=== PATIENT | female | born 1955 | race Caucasian/White ===

== ENCOUNTER 2019-12-13 15:27 | Outpatient (CLI) | payer MEDICARE, SELFPAY ==
--- NOTE | ~2019-12-13 | MM_ITS ---
EXAMINATION: MM screening [facility] BI w nelly HISTORY: Screening mammogram TECHNIQUE: Craniocaudal and mediolateral oblique 3-D tomosynthesis images were obtained and synthetic 2-D images were generated. CAD analysis was submitted and interpreted. COMPARISON: 08/17/2018, 06/10/2017, 02/17/2016 BREAST PARENCHYMAL COMPOSITION: The breasts are heterogeneously dense, which may obscure small masses . FINDINGS: There is no evidence of suspicious mass, calcification, or architectural distortion to sugg est malignancy in either breast. There has been no suspicious interval change. IMPRESSION: 1. No mammographic evidence of malignancy. 2. Recommend routine screening mammography in one year. BI-RADS Category 1: Negative Reviewed, dictated and finalized at location A. LE TESTER
== END 2019-12-13 15:28 | disposition home or self-care (01) ==
PROVIDERS: PCP Family Medicine; Visit Provider Family Medicine
DX: Z12.31 Encounter for screening mammogram for malignant neoplasm of breast (principal)
CPT/HCPCS: 77063; 77067

== ENCOUNTER 2020-01-28 21:22 | Observation (INO) | payer MEDICARE, SELFPAY ==
--- NOTE | ~2020-01-28 | XR_ITS ---
SMALL BOWEL SERIES ONLY INDICATION: Nausea and vomiting. Evaluate for obstruction. TECHNIQUE: Serial plain films and fluoroscopic spot films are performed following oral administration of water-soluble contrast. COMPARISON: None FINDINGS: Contrast was followed sequentially through the small bowel. The mucosal pattern is unremar kable. There is a small hiatal hernia. No evidence for stricture, polyp, diverticula or obstruction o f flow of contrast. Transit time is normal. IMPRESSION: 1: Normal small bowel series. 2: Small hiatal hernia. Reviewed, dictated and finalized at location A.
--- NOTE | ~2020-01-28 | CT_ITS ---
EXAMINATION: CT abdomen pelvis wo con DATE: 01/28/2020 22:56 INDICATION: Generalized abdominal pain. Nausea and vomiting. TECHNIQUE: Computed tomography (CT) of the abdomen and pelvis was performed without intravenous contr ast. Automated exposure control and iterative reconstruction technique were employed. The dose-length product was 401.63 mGy-cm. COMPARISON: None. FINDINGS: The visualized portions of the lung bases demonstrate minimal atelectasis. No pleural effus ion. The heart size is normal. There are coronary artery calcifications. No pericardial effusion. The re is a small sliding hiatal hernia. The liver, gallbladder, spleen, pancreas, adrenal glands, and ki dneys are normal. There is no urolithiasis. There is diverticulosis of the colon without evidence of diverticulitis. There are no dilated loops of bowel. The appendix is normal. There are no pathologica lly enlarged lymph nodes. There is no free intraperitoneal fluid. There is severe lower lumbar spondy losis and severe thoracic spondylosis. IMPRESSION: 1. Small sliding hiatal hernia. Reviewed, dictated and finalized at location A.
[2020-01-28 21:36] VITALS: BP 150/101; PULSE 104; RESP 18; TEMP 36.8; O2SAT 98
--- NOTE | 2020-01-28 21:41 | ED.NAVMDI ---
HPI - Nausea/Vomiting/Diarrhea General Chief complaint: Nausea/Vomiting/Diarrhea Stated complaint: nausea/vomiting Time Seen by Provider: 01/28/20 21:29 Source: patient Mode of arrival: ambulatory Limitations: no limitations History of Present Illness HPI Narrative: Pt is a 64 y/o female who presents to the ED with c/o N/V that started at 2AM this morning. Pt reports associated intermittent ABD cramps, but she denies fever or SOB. Pt states that her hands went numb while she was having a BM today. Pt takes Metformin for her DM and she started taking Jardiance and Trulicity on Tuesday (2 days ago). She notes that she has a H/O GERD and she has had an EGD in the past. MD elicited complaint: nausea and vomiting Onset (ago): hour(s) (20) Associated nausea: Yes Associated abdominal pain: Yes Location of pain: diffuse Pain consistency: intermittent Quality: cramping Related Data Home Medications Medication Instructions Recorded Confirmed blood sugar diagnostic #10 each 09/19/19 01/29/20 blood-glucose meter #1 each 09/19/19 01/29/20 lancets 33 gauge #100 each 09/19/19 01/29/20 pantoprazole 40 mg tablet,delayed 40 mg PO QAM 09/19/19 01/29/20 release paroxetine HCl 20 mg tablet 60 mg PO DAILY tablet 09/19/19 01/29/20 rosuvastatin 20 mg tablet 20 mg PO DAILY 09/19/19 01/29/20 Trulicity 0.75 mg SUBCUT WEEKLY 01/28/20 01/29/20 metformin 500 mg PO BID 01/28/20 01/29/20 Jardiance 25 mg PO DAILY 01/29/20 01/29/20 Allergies Allergy/AdvReac Type Severity Reaction Status Date / Time diclofenac AdvReac Other Verified 01/28/20 21:39 Review of Systems Review of Systems: All systems reviewed & are unremarkable except as noted in HPI and below Constitutional: Constitutional: Denies fever(s) Respiratory: Respiratory: Denies dyspnea Gastrointestinal: Gastrointestinal: Reports abdominal pain (ABD cramps), Reports nausea and Reports vomiting PMFSH Past Medical History Medical History (Updated 02/04/20 @ 06:38 by José Miguel Emanuel MD) Anxiety Bulging discs Depression Essential hypertension GERD (gastroesophageal reflux disease) Gastritis July 2019 HLD (hyperlipidemia) Lichen planus Seasonal allergies Subacute sinusitis Type 2 diabetes mellitus Surgical History Surgical History (Updated 01/29/20 @ 05:16 by Kandice Garcia DO) H/O section History of bunionectomy History of esophagogastroduodenoscopy (EGD) Performed by Dr. Munoz demonstrated gastritis July 2019 History of sinus surgery Family History Family History (Updated 01/29/20 @ 05:14 by Kandice Garcia DO) Mother Heart disease Hypercholesterolemia COPD (chronic obstructive pulmonary disease) Esophageal stricture Father Heart disease Grandparent Breast cancer Maternal grandmother Other Diabetes mellitus Social History Social History (Updated 01/29/20 @ 06:07 by Kandice Garcia DO) Social History: Primary care physician: Dr. Yelena Valdez Code status: Full code Smoking status: Never smoker Second hand tobacco smoke exposure: No Alcohol intake: never Substance use: never Substance use type: does not use Living arrangements: with family Additional living arrangements comments: She lives with her of 44 years. She has 2 children. Her daughter has what sounds like Augustina-Danlos syndrome. 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 Gender identity (if verbalized by the patient): Female Spiritual care concerns: No Agree to blood products: Yes Exam Const: General: no acute distress, well developed and ill appearing (mildly) Nutritional Appearance: well nourished Orientation/consciousness: patient oriented x3 (alert) and Other orientation findings (Alert) Limitations: no limitations HEN
[2020-01-28 22:16] LABS: Basophils Percent Auto 0.2 % (0.2-1.2); Eosinophils Percent Auto 0.1 % (0-4.4); Hematocrit 51.7 % (37.0-47.0); Hemoglobin 17.1 g/dL (12.0-15.0); Immature Granulocyte Absolute 0.04 K/mm3 (0.00-0.031); Immature Granulocyte Percent A 0.2 % (0-0.5); Lymphocytes Absolute Auto 1.34 K/mm3 (0.9-3.2); Lymphocytes Percent Auto 7.8 % (18.3-44.2); Mean Corpuscular HGB Conc 33.1 g/dl (32-36); Mean Corpuscular Hemoglobin 27.3 pg (26-34); Mean Corpuscular Volume 82.6 fl (80-100); Mean Platelet Volume 11.4 fl (7.4-10.4); Monocytes Absolute Auto 0.9 K/mm3 (0.1-0.6); Monocytes Percent Auto 5.2 % (2.6-8.5); Neutrophils Absolute Auto 14.9 K/mm3 (1.3-6.7); Neutrophils Percent Auto 86.5 % (45.5-73.1); Platelet Count Result 349 k/mm3 (150-375); Red Blood Count 6.26 M/mm3 (4.2-5.4); Red Cell Distribution Width 15.2 % (11.5-14.5); White Blood Count 17.2 K/mm3 (4.5-10.0)
[2020-01-28 22:25] LABS: Alanine Aminotransferase 19 U/L (4-35); Albumin Level 5.4 g/dL (3.5-5.1); Alkaline Phosphatase 93 U/L (38-126); Aspartate Amino Transferase 31 U/L (14-36); Bilirubin,Total 0.7 mg/dL (0.2-1.3); Blood Urea Nitrogen 25 mg/dL (7-17); Calcium 10.9 mg/dL (8.4-10.2); Carbon Dioxide 18 mmol/L (22-30); Chloride 99 mmol/L (98-107); Estimated CRCL calculation 46 ml/min; Estimated Glomerular Filt Rate 56; Glucose 226 mg/dL (65-105); Lipase 159 U/L (23-300); Potassium 4.2 mmol/L (3.4-5.0); Sodium 138 mmol/L (137-145)
[2020-01-28 22:29] LABS: Beta-Hydroxybutyrate/Acetoacetate 3.35 mmol/L (0.02-0.27)
[2020-01-28] MEDS: LACTATED RINGERS 1,000 ML 999 ML IV CONT ×2 (22:31→23:09)
[2020-01-28] MEDS: PROCHLORPERAZINE EDISYLATE 10 MG/2 ML VIAL IV PUSH (22:32)
[2020-01-28 22:59] LABS: Add Urine Microscopic? YES; Appearance Urine Clear (Clear); Bilirubin Urine Negative (Negative); Blood Urine Negative (Negative); Color Urine Yellow (Yellow); Glucose Urine UA 3+ mg/dL (Negative); Ketones Urine 2+ mg/dL (Negative); Leukocyte Esterase Ur Negative LEU/UL (Negative); Mucus Urine Rare /lpf; Nitrate Urine Negative (Negative); Protein Urine 1+ mg/dL (Negative); RBC Urine 0-2 /hpf (0-2); Squamous Epithelial Cell Urine Rare /hpf (Few); Urobilinogen Urine Negative mg/dL (<2.0)
[2020-01-28 23:05] LABS: Specific Grav Ur 1.035 (1.001-1.035)
[2020-01-28] MEDS: FAMOTIDINE 20 MG/2 ML VIAL 40 MG IV PUSH (23:08)
[2020-01-28 23:12] VITALS: BP 149/91; PULSE 95; RESP 18; O2SAT 99
--- NOTE | 2020-01-28 23:20 | ECG_ITS ---
Measurements Intervals [place] Rate: 80 P: 47 [place]: 161 QRS: 14 QRSD: 84 T: 32 QT: 379 QTc: 438 Interpretive Statements SINUS RHYTHM LOW QRS VOLTAGE IN PRECORDIAL LEADS BORDERLINE ST-T WAVE ABNORMALITY- INF/LAT LEADS BORDERLINE ECG Electronically Signed On 01-29-2020 7:17:39 CDT by Zen Donis D.O.
[2020-01-28 23:31] LABS: Lactic Acid Reflex 2.8 mmol/L (0.7-2.1)
--- NOTE | 2020-01-28 23:54 | PC.NURSE ---
this rn attempted to put NG in right nare, met resistance at 45. this RN pulled tube out and was going to attempt in left nare pt refused. notified.
[2020-01-29 00:04] VITALS: BP 135/85; PULSE 92; RESP 16; O2SAT 99
[2020-01-29 00:39] VITALS: BP 138/89; PULSE 85; RESP 18; O2SAT 100
[2020-01-29 00:45] VITALS: BP 139/68; PULSE 87; RESP 18; TEMP 36.7; O2SAT 94; BMI 26.7
[2020-01-29] MEDS: ONDANSETRON INJ 4 MG/2 ML VIAL IV PUSH (00:55)
[2020-01-29] MEDS: LACTATED RINGERS 1,000 ML 125 ML IV CONT ×2 (00:57→09:33)
[2020-01-29 00:58] VITALS: BMI 26.7
--- NOTE | 2020-01-29 01:04 | ADMGEN ---
This patient, My Galan, was admitted to [facility] Room 314-01. Patient/family oriented to hospital policies and general routines including ID bracelet, bed and alarms, visiting hours, pain management, procedures, bathroom and other care routines, personal items, smoking policy, room service/diet, and visiting hours. Valuables list has been completed. Information on how to activate the Rapid Response Team has been discussed. Patient/Family are encouraged to report perceived risks to care and to ask questions if they do not understand what they are told or what they should do.
[2020-01-29 02:16] LABS: Reflex Lactic Acid Yes or No Add Lactic
[2020-01-29 02:51] LABS: Lactic Acid 2.3 mmol/L (0.7-2.1)
--- NOTE | 2020-01-29 05:05 | PM.IMHP ---
H&P: HPI History of Present Illness Chief complaint: intractable vomiting Narrative: Date and time of patient contact: 01/29/2020 at 5:20 a.m. My Galan is a 64 year old female with a past medical history of type 2 diabetes mellitus, hypertension and GERD who presented to the ER with intractable nausea and vomiting. The patient reported that she started Trulicity by her teacher asst and metformin on Tuesday morning. Then on the major general hour of Tuesday morning she began having nausea vomiting and dry heaves. She reports that she was unable to even keep down a tsp of fluid at a time. She had not had more than a couple of tsp of fluid all day on Tuesday before presenting to the ER. She reports epigastric pain and esophageal discomfort occurred right at the time she was going to vomit in following the episode. She denies any hematochezia, hematemesis or coffee-ground emesis. She had not been having any fevers or chills. Her had been eating the same food as her prior to onset of symptoms and he did not was not ill. She denies any fevers or chills. She did not have any accompanying diarrhea. In fact, her last bowel movement was shortly before coming to the ER and was dark and somewhat hard. When she pushed to have her bowel movement in made her epigastric pain worse. She does have a history of gastritis and had an EGD in July of 2019. She had tried to stop her Protonix a couple of times since July, as there is a possibility it could have been making her lichen planus worse, but each time she stopped her Protonix her epigastric pain would recur and she would have a headache. Her symptoms over the last 2 days for nothing like her gastritis symptoms. She had had decreased urine output and darker urine. She denies any dysuria or hematuria. Her teacher asst is Dr. Li Lee. Review of Systems Review of Systems: Narrative: 12 systems were reviewed with pertinent positives and negatives per HPI. Except as documented in the HPI, all other systems were reviewed and are negative. [facility] Past Medical History Medical History (Updated 01/29/20 @ 05:20 by Kandice Garcia DO) Anxiety Bulging discs Depression Essential hypertension GERD (gastroesophageal reflux disease) Gastritis July 2019 HLD (hyperlipidemia) Lichen planus Seasonal allergies Subacute sinusitis Type 2 diabetes mellitus Surgical History Surgical History (Updated 01/29/20 @ 05:16 by Kandice Garcia DO) H/O section History of bunionectomy History of esophagogastroduodenoscopy (EGD) Performed by Dr. Munoz demonstrated gastritis July 2019 History of sinus surgery Family History Family History (Updated 01/29/20 @ 05:14 by Kandice Garcia DO) Mother Heart disease Hypercholesterolemia COPD (chronic obstructive pulmonary disease) Esophageal stricture Father Heart disease Grandparent Breast cancer Maternal grandmother Other Diabetes mellitus Social History Social History (Updated 01/29/20 @ 06:07 by Kandice Garcia DO) Social History: Primary care physician: Dr. Yelena Valdez Code status: Full code Smoking status: Never smoker Second hand tobacco smoke exposure: No Alcohol intake: never Substance use: never Substance use type: does not use Living arrangements: with family Additional living arrangements comments: She lives with her of 44 years. She has 2 children. Her daughter has what sounds like Augustina-Danlos syndrome. 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 Gender identity (if verbalized by the patient): Female Spiritual care concerns: No Agree to blood products: Yes Meds Home Medications and Allergies Home Medications Medication Instructio
[2020-01-29 06:00] VITALS: BP 120/60; PULSE 85; RESP 18; TEMP 36.4; O2SAT 95
[2020-01-29 06:13] LABS: Basophils Absolute Auto 0.1 K/mm3 (0.0-0.1); Basophils Percent Auto 0.4 % (0.2-1.2); Eosinophils Percent Auto 0.1 % (0-4.4); Hematocrit 44.7 % (37.0-47.0); Hemoglobin 14.6 g/dL (12.0-15.0); Immature Granulocyte Absolute 0.05 K/mm3 (0.00-0.031); Immature Granulocyte Percent A 0.4 % (0-0.5); Lymphocytes Absolute Auto 3.32 K/mm3 (0.9-3.2); Lymphocytes Percent Auto 23.3 % (18.3-44.2); Mean Corpuscular HGB Conc 32.7 g/dl (32-36); Mean Corpuscular Hemoglobin 27.5 pg (26-34); Mean Corpuscular Volume 84.2 fl (80-100); Monocytes Absolute Auto 1.4 K/mm3 (0.1-0.6); Monocytes Percent Auto 9.5 % (2.6-8.5); Neutrophils Absolute Auto 9.4 K/mm3 (1.3-6.7); Neutrophils Percent Auto 66.3 % (45.5-73.1); Platelet Count Result 291 k/mm3 (150-375); Red Blood Count 5.31 M/mm3 (4.2-5.4); White Blood Count 14.2 K/mm3 (4.5-10.0)
[2020-01-29 06:25] LABS: Lactic Acid Reflex 1.7 mmol/L (0.7-2.1)
[2020-01-29 06:26] LABS: Blood Urea Nitrogen 25 mg/dL (7-17); Calcium 9.7 mg/dL (8.4-10.2); Carbon Dioxide 26 mmol/L (22-30); Chloride 103 mmol/L (98-107); Estimated CRCL calculation 57 ml/min; Estimated Glomerular Filt Rate > 60; Glucose 128 mg/dL (65-105); Potassium 4.3 mmol/L (3.4-5.0); Sodium 136 mmol/L (137-145)
[2020-01-29] MEDS: ASPIRIN 81 MG CHEWABLE TABLET PO (09:40)
[2020-01-29] MEDS: PANTOPRAZOLE SODIUM IV 40 MG VIAL IV PUSH (09:41)
[2020-01-29 10:28] LABS: Glucose Point of Care 142 (65-105)
--- NOTE | 2020-01-29 10:57 | PM.IMPN ---
Progress Note: A&P Assessment and Plan (1) Intractable vomiting with nausea: Code(s): R11.2 - Nausea with vomiting, unspecified Status: Acute Assessment and Plan: Suspect that this may be an adverse reaction to trulicity. She denies any further episodes of vomiting. She tolerated CLD this AM with only mild nausea. Discussed with Dr. Munoz and will perform small bowel series to r/o obstruction Will advance to full liquid diet after small bowel series Continue PRN antiemetics Continue protonix IV BID Will hold trulicity at discharge (2) Lactic acidosis: Code(s): E87.2 - Acidosis Status: Resolved Assessment and Plan: Lactic at presentation to ED was 2.8. This was likely due to dehydration/hypovolemia. Lactic acidosis has resolved as lactic acid today is WNL at 1.7. (3) Hyperglycemia due to type 2 diabetes mellitus: Qualifiers: Diabetes mellitus laborer marine terminal insulin use: without laborer marine terminal use Qualified Code(s): E11.65 - Type 2 diabetes mellitus with hyperglycemia Code(s): E11.65 - Type 2 diabetes mellitus with hyperglycemia Status: Acute Assessment and Plan: Per pt, most recent HbA1C was 10. She was referred to endocrinology and saw Dr. Li Lee 01/24/19. She was prescribed metformin and trulicity. She had intractable vomiting 4 hr after taking trulicity at 2pm 01/25. She was on metformin 4 years ago and believes she may have experienced GI upset/diarrhea at that time. Blood sugars reviewed and stable. Hold prior to admission hypoglycemic agents Continue SSI, ACHS, and hypoglycemia protocol (4) Hypovolemia dehydration: Code(s): E86.1 - Hypovolemia Status: Acute Assessment and Plan: Pt had 2 1L fluid boluses in the ED. She is on maintenance IV fluids at this time. Continue IV fluid hydration, reassess as pt advances diet (5) GERD (gastroesophageal reflux disease): Code(s): K21.9 - Gastro-esophageal reflux disease without esophagitis Status: Acute Assessment and Plan: Pt underwent EGD [address] Munoz which revealed gastritis. Protonix IV while inpatient. Resume protonix 40mg PO QD at discharge. (6) Essential hypertension: Code(s): I10 - Essential (primary) hypertension Status: Acute Assessment and Plan: BP reviewed and stable. Continue telmisartan (7) HLD (hyperlipidemia): Code(s): E78.5 - Hyperlipidemia, unspecified Status: Acute Assessment and Plan: LFTs reviewed and WNL. Continue rosuvastatin (8) Anxiety: Code(s): F41.9 - Anxiety disorder, unspecified Status: Acute Assessment and Plan: Mood stable. Continue paroxetine (9) DVT prophylaxis: Code(s): Z29.9 - Encounter for prophylactic measures, unspecified Status: Acute Assessment and Plan: Lovenox 40mg SQ QD Subjective Date/time seen: 01/29/20 10:57 Interval history: Mrs. Galan is seen and examined at bedside. She reports that her appetite has improved and she was able to tolerate chicken broth, jello, and ensure today. She endorses mild postprandial nausea but denies vomiting after eating. She denies abdominal pain, melena, hematochezia, and hematemesis. She denies chest pain, cough, and SOB. She denies fever and chills. Review of Systems Review of Systems: All systems reviewed & are unremarkable except as noted in HPI and below Exam Narrative: Exam Narrative: General: Pleasant 64 y.o. female who is lying in bed resting. She is well-developed and in no acute distress. HEENT: Normocephalic and atraumatic. Conjunctivae and lids normal. PERRL. EOMI. Mucous membranes moist. Posterior pharynx without erythema or exudate. Neck: Supple. No lymphadenopathy or masses. Cardiac: Regular rate and rhythm. S1 and S2 normal. Lungs: Normal respiratory effort. Lungs to auscultation bilaterally without rales, rhonchi, or wheezing. Abdomen:
[2020-01-29] MEDS: ENOXAPARIN 40 MG/0.4 ML SYRINGE SUB-Q (11:50)
[2020-01-29] MEDS: PAROXETINE 20 MG TABLET 60 MG PO (14:19)
[2020-01-29] MEDS: ROSUVASTATIN 10 MG TABLET 20 MG PO (14:19)
[2020-01-29 14:29] VITALS: BP 138/68; PULSE 84; RESP 18; TEMP 37.3; O2SAT 96
[2020-01-29 14:33] LABS: Glucose Point of Care 117 (65-105)
[2020-01-29] MEDS: TELMISARTAN 20 MG TABLET PO (16:10)
[2020-01-29 17:46] LABS: Glucose Point of Care 129 (65-105)
[2020-01-29] MEDS: PANTOPRAZOLE 40 MG TABLET PO (20:16)
[2020-01-29 21:55] LABS: Glucose Point of Care 110 (65-105)
[2020-01-29 22:00] VITALS: BP 136/68; PULSE 83; RESP 18; TEMP 36.6; O2SAT 99
[2020-01-30 06:00] VITALS: BP 121/67; PULSE 86; RESP 16; TEMP 37; O2SAT 96
[2020-01-30 06:21] LABS: Hematocrit 40.8 % (37.0-47.0); Mean Corpuscular HGB Conc 31.9 g/dl (32-36); Mean Corpuscular Hemoglobin 27.4 pg (26-34); Mean Corpuscular Volume 85.9 fl (80-100); Mean Platelet Volume 11.5 fl (7.4-10.4); Platelet Count Result 222 k/mm3 (150-375); Red Blood Count 4.75 M/mm3 (4.2-5.4); Red Cell Distribution Width 14.6 % (11.5-14.5)
[2020-01-30 06:34] LABS: Blood Urea Nitrogen 18 mg/dL (7-17); Calcium 9.1 mg/dL (8.4-10.2); Carbon Dioxide 29 mmol/L (22-30); Chloride 104 mmol/L (98-107); Estimated CRCL calculation 57 ml/min; Estimated Glomerular Filt Rate > 60; Glucose 119 mg/dL (65-105); Magnesium 1.9 mg/dL (1.6-2.3); Sodium 137 mmol/L (137-145)
[2020-01-30 07:46] LABS: Glucose Point of Care 118 (65-105)
[2020-01-30] MEDS: TELMISARTAN 20 MG TABLET PO (08:21)
[2020-01-30] MEDS: ASPIRIN 81 MG CHEWABLE TABLET PO (08:21)
[2020-01-30] MEDS: ROSUVASTATIN 10 MG TABLET 20 MG PO (08:21)
[2020-01-30] MEDS: PANTOPRAZOLE 40 MG TABLET PO (08:21)
[2020-01-30] MEDS: PAROXETINE 20 MG TABLET 60 MG PO (08:22)
[2020-01-30] MEDS: ENOXAPARIN 40 MG/0.4 ML SYRINGE SUB-Q (08:22)
--- NOTE | 2020-01-30 09:11 | PM.DS ---
DS: Diagnosis Admitting Diagnosis Admitting Diagnosis: Nausea with vomiting, unspecified Discharge Diagnosis (1) Intractable vomiting with nausea: Code(s): R11.2 - Nausea with vomiting, unspecified Status: Resolved (2) Lactic acidosis: Code(s): E87.2 - Acidosis Status: Resolved Assessment and Plan: (3) Type 2 diabetes mellitus: Code(s): E11.9 - Type 2 diabetes mellitus without complications Status: Chronic (4) Hypovolemia dehydration: Code(s): E86.1 - Hypovolemia Status: Resolved (5) GERD (gastroesophageal reflux disease): Code(s): K21.9 - Gastro-esophageal reflux disease without esophagitis Status: Chronic (6) Essential hypertension: Code(s): I10 - Essential (primary) hypertension Status: Chronic (7) HLD (hyperlipidemia): Code(s): E78.5 - Hyperlipidemia, unspecified Status: Chronic (8) Anxiety: Code(s): F41.9 - Anxiety disorder, unspecified Status: Chronic (9) DVT prophylaxis: Code(s): Z29.9 - Encounter for prophylactic measures, unspecified Status: Acute DS: Summary Hospital Course Hospital Course: Mrs. Galan is a 64 y.o. female with PMH significant for T2DM, hypertension, GERD, anxiety and depression, and HLD who presented to the ED with c/o intractable nausea and vomiting 01/26 after starting trulicity and metformin 01/25. She had recurrent vomiting and retching throughout the day Tuesday and Tuesday. She was unable to keep fluids or food down and presented to the ED. Initial workup in the ED revealed WBC 17.2, Hb 17.1, Hct 51.7, MCV 82.6, platelets 349, sodium 138, potassium 4.4, chloride 100, CO2 21, BUN 23, Cr 0.7, lactic acid 2.8, lipase 159. CT abd/pelvis revealed fluid distention in the stomach and small sliding hiatal hernia. She was admitted for observation. NG tube placement was attempted but the first attempt was unsuccessful and the pt refused additional attempts. Small bowel series revealed no evidence of obstruction. Her sx were felt to be due to an adverse reaction from her trulicity and/or metformin. She had evidence of dehydration clinically and on labs so she was rehydrated with IV fluids. Her lactic acidosis was felt to be due to dehydration and normalized with fluids. She advanced her diet slowly and was tolerating consistent carb diet on the day of discharge without nausea, vomiting, or abdominal pain. I called to discuss her case with Dr. Lee, her cash surrender calculator. Her blood sugars were reviewed and reasonably controlled during her stay on SSI. Due to her severe vomiting and lactic acidosis at admission, I have recommended she hold trulicity and metformin at discharge until she is able to follow-up with Dr. Lee outpatient for her diabetes management. Dr. Lee has ordered labs which I instructed her to have completed. She will continue jardiance. She admits that she has started making significant dietary changes in the past month. I asked her to keep a blood sugar log and call her PCP and cash surrender calculator immediately if her blood sugar readings were persistently elevated >180 on this regimen. She verbalized understanding with the current plan of care. She was able to meet with our personal development educator and I also spent extensive time discussing the importance of exercise and dietary changes to help with glycemic control as well. Additional discharge instructions are listed below. She was hemodynamically stable at the time of discharge. She was tolerating PO intake well. Status at Discharge Functional status at discharge: independent ambulation Overall status at discharge: patient is back to baseline Time Spent with Patient Time attestation: Total time spent providing and/or coordinating discharge services: 30 minutes Exam Narrative: Exam Narrative: General: Pleasant, well-developed 64 y.o. female who is sitting in the chair next to the window looking outside. She is in no acute distress. HEENT: Nor
[2020-01-30 11:30] VITALS: BMI 26.7
[2020-01-30 12:30] LABS: Glucose Point of Care 140 (65-105)
== END 2020-01-30 13:30 | disposition home or self-care (01) ==
LOC: ANHED 23:46 → ANH3MEDSUR 01-29 00:08
PROVIDERS: Emergency Medicine; Physician Assistant; Admitting Provider Internal Medicine; Emergency Provider Emergency Medicine; PCP Family Medicine; Visit Provider Family Medicine
DX: R11.2 Nausea with vomiting, unspecified (principal); E87.2 Acidosis; E86.1 Hypovolemia; E86.0 Dehydration; E11.65 Type 2 diabetes mellitus with hyperglycemia; K21.9 Gastro-esophageal reflux disease without esophagitis; K44.9 Diaphragmatic hernia without obstruction or gangrene; I10 Essential (primary) hypertension; E78.5 Hyperlipidemia, unspecified; F41.9 Anxiety disorder, unspecified; F32.9 Major depressive disorder, single episode, unspecified; Z79.84 Long term (current) use of oral hypoglycemic drugs; Z79.899 Other long term (current) drug therapy
CPT/HCPCS: 36415; 74176; 74250; 80048; 80053; 81001; 82010; 83605; 83690; 83735; 84100; 85025; 85027; 93005; 96361; 96372; 96374; 96375; 99285; A9270; C9113; G0378; J0780; J1650; J2405; J7120

== ENCOUNTER 2020-09-19 10:59 | Emergency (ER) | payer MEDICARE, SELFPAY ==
--- NOTE | ~2020-09-19 | XR_ITS ---
EXAMINATION: XR chest 1V portable DATE: 09/19/2020 11:45 INDICATION: Shortness of breath. TECHNIQUE: A single frontal view of the chest was obtained. COMPARISON: Chest 2 views 06/26/2019, CT abdomen and pelvis 01/28/2020 FINDINGS: The chest demonstrates clear lungs without pneumonia, pleural effusion, or pneumothorax. Th e heart size is normal. IMPRESSION: 1. No acute cardiopulmonary disease. Reviewed, dictated and finalized at location A. LERATOR SYSTEMS DIRECTOR
--- NOTE | 2020-09-19 11:08 | ED.GENADULT ---
HPI - General Adult General Chief complaint: Dizziness <Fay Scott PA-C - Last Filed: 09/19/20 14:35> Stated complaint: Dizzy-hx [place] 09/13 <Fay Scott PA-C - Last Filed: 09/19/20 14:35> Time Seen by Provider: 09/19/20 11:05 <Fay Scott PA-C - Last Filed: 09/19/20 14:35> Source: patient and family () <Fay Scott PA-C - Last Filed: 09/19/20 14:35> Mode of arrival: ambulatory <VENTURA Arvizu Last Filed: 09/19/20 14:35> Limitations: no limitations <VENTURA Arvizu Last Filed: 09/19/20 14:35> History of Present Illness HPI narrative: Patient is here for evaluation of dizziness. On 09/13 patient had a STEMI while camping in [facility]. She was treated at [facility], cardiac cath was done and a stent was placed. She was instructed to follow-up with cardiology here in 2 to 4 weeks. She was also started on a beta-cecilia twice daily. She states that her symptoms started yesterday and she felt like she was spinning, it was worse when she was standing but did not resolve completely when she lie down flat. She called the forging operator that treated her and was recommended to hold her beta-cecilia today so her last dose was last evening. She does state that she feels a little better today, is not dizzy while sitting. She also complained of mild shortness of breath that has been ongoing since she was discharged from the hospital. She states that she had a negative Covid screen in [place]. <Fay Scott PA-C - Last Filed: 09/19/20 14:35> Onset (ago): day(s) <Fay Scott PA-C - Last Filed: 09/19/20 14:35> Severity: mild <VENTURA Arvizu Last Filed: 09/19/20 14:35> Pain Consistency: intermittent <VENTURA Arvizu Last Filed: 09/19/20 14:35> Treatments prior to arrival: other (holding b-cecilia) <Fay Scott PA-C - Last Filed: 09/19/20 14:35> Related Data Home medications: Home Medications Medication Instructions Recorded Confirmed paroxetine HCl 20 mg tablet 60 mg PO DAILY tablet 09/19/19 02/13/20 rosuvastatin 20 mg tablet 20 mg PO DAILY 09/19/19 02/13/20 metformin 500 mg PO BID 01/28/20 02/13/20 Jardiance 25 mg PO DAILY 01/29/20 02/13/20 cholecalciferol (vitamin D3) 50 50 mcg PO DAILY 06/03/20 mcg (2,000 unit) capsule coenzyme Q10 100 mg capsule 100 mg PO DAILY 06/03/20 evening primrose oil 500 mg capsule 500 mg PO DAILY cap 06/03/20 fenofibrate 160 mg tablet 160 mg PO DAILY 06/03/20 glimepiride 1 mg tablet 1 mg PO QAM 06/03/20 ujenubehpdzo-Pw-egwc-minerals tablet PO 06/03/20 omega-3 fatty acids 1,000 mg 1,000 mg PO BID 06/03/20 capsule <Fay Scott PA-C - Last Filed: 09/19/20 14:35> Allergies/adverse reactions: Allergies Allergy/AdvReac Type Severity Reaction Status Date / Time dulaglutide [From [facility]] AdvReac Severe Nausea and Verified 06/03/20 09:39 Vomiting diclofenac AdvReac Other Verified 06/03/20 09:39 <Fay Scott PA-C - Last Filed: 09/19/20 14:35> Review of Systems Review of Systems: All systems reviewed & are unremarkable except as noted in HPI and below <Fay Scott PA-C - Last Filed: 09/19/20 14:35> [facility] Past Medical History Medical History: Medical History (Updated 09/19/20 @ 14:35 by Fay Scott PA-C) Anxiety Bulging discs Depression Essential hypertension Excessive daytime sleepiness Frequent headaches GERD (gastroesophageal reflux disease) Gastritis July 2019 HLD (hyperlipidemia) Lichen planus NSTEMI (non-ST elevated myocardial infarction) Seasonal allergies Subacute sinusitis Type 2 diabetes mellitus <Fay Scott PA-C - Last Filed: 09/19/20 14:35> Surgical History Surgical History: Surgical History H/O section History of bunionectomy History of esophagogastroduodenoscopy (EGD) Performed by
[2020-09-19 11:10] VITALS: BP 138/83; PULSE 59; RESP 14; O2SAT 97
[2020-09-19 11:27] VITALS: BP 129/67; PULSE 60
[2020-09-19 11:28] VITALS: BP 126/77; PULSE 60
[2020-09-19 11:30] VITALS: BP 125/81; PULSE 61
[2020-09-19 11:31] LABS: Basophils Percent Auto 0.6 % (0.2-1.2); Eosinophils Absolute Auto 0.3 K/mm3 (0-0.3); Eosinophils Percent Auto 4.2 % (0-4.4); Hematocrit 46.5 % (37.0-47.0); Hemoglobin 15.4 g/dL (12.0-15.0); Immature Granulocyte Absolute 0.01 K/mm3 (0.00-0.031); Immature Granulocyte Percent A 0.2 % (0-0.5); Lymphocytes Percent Auto 28.2 % (18.3-44.2); Mean Corpuscular HGB Conc 33.1 g/dl (32-36); Mean Corpuscular Hemoglobin 28.3 pg (26-34); Mean Corpuscular Volume 85.3 fl (80-100); Mean Platelet Volume 10.9 fl (7.4-10.4); Monocytes Absolute Auto 0.5 K/mm3 (0.1-0.6); Neutrophils Absolute Auto 3.8 K/mm3 (1.3-6.7); Neutrophils Percent Auto 58.8 % (45.5-73.1); Platelet Count Result 333 k/mm3 (150-375); Red Blood Count 5.45 M/mm3 (4.2-5.4); White Blood Count 6.4 K/mm3 (4.5-10.0)
[2020-09-19 11:43] LABS: Alanine Aminotransferase 27 U/L (4-35); Alkaline Phosphatase 49 U/L (38-126); Anion Gap 12 mmol/L (8-16); Aspartate Amino Transferase 35 U/L (14-36); Bilirubin,Total 0.5 mg/dL (0.2-1.3); Blood Urea Nitrogen 26 mg/dL (7-17); Calcium 10.5 mg/dL (8.4-10.2); Carbon Dioxide 27 mmol/L (22-30); Chloride 100 mmol/L (98-107); Estimated CRCL calculation 43 ml/min; Estimated Glomerular Filt Rate 50; Glucose 162 mg/dL (65-105); Potassium 4.6 mmol/L (3.4-5.0); Sodium 139 mmol/L (137-145)
[2020-09-19 12:16] VITALS: BP 136/75; PULSE 60; RESP 19; O2SAT 94
[2020-09-19] MEDS: SODIUM CHLORIDE 0.9% IV 1,000 ML 999 ML IV CONT (12:56)
[2020-09-19 14:33] VITALS: BP 154/99; PULSE 59; RESP 19; O2SAT 99
--- NOTE | 2020-09-19 15:38 | ECG_ITS ---
Measurements Intervals [place] Rate: 59 P: -2 [place]: 173 QRS: 5 QRSD: 87 T: 60 QT: 419 QTc: 416 Interpretive Statements SINUS BRADYCARDIA LOW QRS VOLTAGE IN PRECORDIAL LEADS BORDERLINE ECG Electronically Signed On 09-19-2020 16:38:15 CASE REVIEWER by Zen Donis D.O.
== END 2020-09-19 14:54 | disposition home or self-care (01) ==
PROVIDERS: Physician Assistant; Emergency Provider Emergency Medicine; PCP Family Medicine
DX: R42 Dizziness and giddiness (principal); R00.1 Bradycardia, unspecified; I25.2 Old myocardial infarction; Z79.84 Long term (current) use of oral hypoglycemic drugs; I10 Essential (primary) hypertension; K21.9 Gastro-esophageal reflux disease without esophagitis; E78.5 Hyperlipidemia, unspecified; L43.9 Lichen planus, unspecified; E11.9 Type 2 diabetes mellitus without complications; Z87.891 Personal history of nicotine dependence
CPT/HCPCS: 36415; 71045; 80053; 85025; 93005; 96360; 96361; 99283; J7030

== ENCOUNTER → 2020-10-24 10:16 | Outpatient (CLI) | payer MEDICARE, SELFPAY ==
--- NOTE | ~2020-10-24 | DEXA_ITS ---
Bone Density Report Name: My Galan Age: 65 Sex: Female Ethnicity: White Date of : 1955 Indication: postmenopausal; screening for osteoporosis; height loss; Referring Provider: ANURADHA FRENCH Study: Bone densitometry was performed. Exam Date: October 24, 2020 Accession number: [id number] Bone Density: Region BMD T-score Z-score Classification AP Spine (L1-L4) 1.076 0.3 2.1 Normal Femoral Neck (Left) 0.799 -0.4 1.1 Normal Total Hip (Left) 0.994 0.4 1.7 Normal Femoral Neck (Right) 0.751 -0.9 0.7 Normal Total Hip (Right) 0.956 0.1 1.4 Normal Total Hip Mean 0.975 0.3 1.6 Normal World Health Organization criteria for BMD impression classify patients as: Normal (T-score at or above -1.0), Osteopenia (T-score between -1.0 and -2.5), or Osteoporosis (T-score at or below -2.5). 10-year Fracture Risk: FRAX not reported because: All T-scores for Spine Total, Hip Total, Femoral Neck at or above -1.0 Clinical Information Provided by Patient: Has used the following medications: Vitamin D, MTV Patient maximum height was 64 Menopause Age: 57 No regular weight bearing exercise Onset of menses at age 12 Number of children 2 Impression: The patient has normal bone mass. Discussion: BONE DENSITY IS ABOVE THE MINIMUM DESIRABLE LEVEL AT ALL SKELETAL SITES TESTED. This patient?s bone mineral density is above the minimum desirable level (T-score -1.0 or better) at all sites measured. The patient should follow a healthful lifestyle (good nutrition with adequate calcium and vitamin D, and appropriate weight-bearing exercise). Follow-Up: Consider repeating this study in 5 years or sooner if there is some new clinical indication. Reported by: [facility] on 10/24/2020 10:52:00 AM. Reviewed, dictated and finalized at location ALisa CARRASQUILLO
== END ==
DX: M81.0 Age-related osteoporosis without current pathological fracture (principal)
CPT/HCPCS: 77080

== ENCOUNTER 2021-01-14 09:00 | Outpatient (RCR) | payer MEDICARE, SELFPAY ==
[2020-10-16 12:47] VITALS: BP 128/78; PULSE 70; RESP 16; TEMP 36.3; O2SAT 97
[2020-10-16 12:48] VITALS: PULSE 70
[2020-10-22 15:11] LABS: Glucose Point of Care 171 (65-105)
--- NOTE | 2020-12-04 18:08 | PCCPR ---
Discouraged from exercising today c/o not feeling well My here her left eye was swollen mostly lower eye lid. State is fatigued and allergies are going wild as she attempts to clean out her basement filled with dust. Explained if not feeling well it would not be a good day to exercise she should take the day and rest and if feeling better return on Tuesday.
[2020-12-15 17:56] LABS: Glucose Point of Care 154 (65-105)
--- NOTE | 2020-12-17 16:53 | PCCPR ---
My absent today, caring for and grandchildren.
--- NOTE | 2020-12-22 13:19 | PCCPR ---
Absent due to inclement weather Spoke with My if she did not want to come out in the very cold and snowy weather
[2020-12-25 16:02] LABS: Glucose Point of Care 132 (65-105)
[2020-12-25 16:02] LABS: Glucose Point of Care 110 (65-105)
[2021-01-07 10:19] LABS: Glucose Point of Care 159 (65-105)
[2021-01-07 10:19] LABS: Glucose Point of Care 115 (65-105)
[2021-01-08 10:03] LABS: Glucose Point of Care 177 (65-105)
[2021-01-08 10:03] LABS: Glucose Point of Care 126 (65-105)
[2021-01-14 10:12] LABS: Glucose Point of Care 116 (65-105)
== END 2021-01-14 23:59 | disposition home or self-care (01) ==
LOC: ANHCPREHAB 09:00
PROVIDERS: PCP Family Medicine
DX: Z95.5 Presence of coronary angioplasty implant and graft (principal)
CPT/HCPCS: 82948; 93798

== ENCOUNTER 2021-02-02 09:00 | Outpatient (RCR) | payer MEDICARE, SELFPAY ==
[2021-01-15 00:03] VITALS: BP 128/78; PULSE 70; RESP 16; TEMP 36.3; O2SAT 97
[2021-01-27 07:09] LABS: Glucose Point of Care 194 (65-105)
== END 2021-02-02 11:30 | disposition home or self-care (01) ==
LOC: ANHCPREHAB 09:00
PROVIDERS: PCP Family Medicine
DX: Z95.5 Presence of coronary angioplasty implant and graft (principal)
CPT/HCPCS: 82948; 93798

== ENCOUNTER 2021-04-18 14:21 | Emergency (ER) | payer MEDICARE, SELFPAY ==
--- NOTE | ~2021-04-18 | CT_ITS ---
EXAMINATION: CT abdomen pelvis w con DATE: 04/18/2021 17:15 INDICATION: Epigastric pain, nausea and vomiting TECHNIQUE: Computed tomography (CT) of the abdomen and pelvis was performed with 100 mL Omnipaque-350 intravenous contrast. Automated exposure control and iterative reconstruction technique were employe d. The dose-length product was 388.50 mGy-cm. COMPARISON: 01/28/2020 FINDINGS: Lung bases are clear. Heart size is normal. Atherosclerotic coronary artery calcific location. No per icardial or pleural effusion. There is edematous wall thickening the distal esophagus which given his tory of nausea and vomiting is likely related to esophagitis. Small region of focal hepatic steatosis at the ligamentum teres. Gallbladder, spleen, pancreas, bilateral adrenal glands and kidneys are nor mal. There is fluid throughout the colon consistent with diarrhea. No abnormal bowel wall thickening or obstruction. Appendix is normal. Bladder, anteverted uterus and bilateral adnexa are unremarkable. No free intraperitoneal gas or fluid. No pathologically enlarged abdominal or pelvic lymphadenopathy . 2 mm retrolisthesis L2 on L3 and 4 mm anterolisthesis L4 on L5. Severe disc height loss with degene rative endplate changes at T9-T10, L4-L5 and L5-S1. IMPRESSION: 1. Fluid throughout the otherwise normal-appearing colon consistent with diarrhea. Correlate clinical ly for enteritis. 2. Edematous wall thickening in the distal esophagus likely esophagitis related to reported nausea an d vomiting. Reviewed, dictated and finalized at location A. IMPRESSION: 1. Fluid throughout the otherwise normal-appearing colon consistent with diarrh ea. Correlate clinically for enteritis. 2. Edematous wall thickening in the distal esophagus likely esophagitis related to reported nausea and vomiting.
--- NOTE | ~2021-04-18 | XR_ITS ---
EXAMINATION: XR chest 1V DATE: 04/18/2021 17:22 INDICATION: Left-sided chest pain. TECHNIQUE: frontal view of the chest was obtained. COMPARISON: Chest radiograph dated 09/19/2020 FINDINGS: The lungs remain clear with no focal airspace opacities, pulmonary edema, pleural effusion or pneumot horax. The cardiomediastinal silhouette is normal. IMPRESSION: 1. No acute cardiopulmonary disease. Reviewed, dictated and finalized at location A.
[2021-04-18 14:23] VITALS: BP 129/93; PULSE 95; RESP 18; TEMP 36.3; O2SAT 96
[2021-04-18 14:35] LABS: Basophils Percent Auto 0.2 % (0.2-1.2); Eosinophils Absolute Auto 3.3 K/mm3 (0-0.3); Eosinophils Percent Auto 25.2 % (0-4.4); Hematocrit 47.8 % (37.0-47.0); Hemoglobin 15.7 g/dL (12.0-15.0); Immature Granulocyte Absolute 0.03 K/mm3 (0.00-0.031); Immature Granulocyte Percent A 0.2 % (0-0.5); Lymphocytes Absolute Auto 1.47 K/mm3 (0.9-3.2); Lymphocytes Percent Auto 11.2 % (18.3-44.2); Mean Corpuscular HGB Conc 32.8 g/dl (32-36); Mean Corpuscular Hemoglobin 27.9 pg (26-34); Mean Corpuscular Volume 84.9 fl (80-100); Mean Platelet Volume 10.2 fl (7.4-10.4); Monocytes Absolute Auto 0.8 K/mm3 (0.1-0.6); Monocytes Percent Auto 5.9 % (2.6-8.5); Neutrophils Absolute Auto 7.5 K/mm3 (1.3-6.7); Neutrophils Percent Auto 57.3 % (45.5-73.1); Platelet Count Result 374 k/mm3 (150-375); Red Blood Count 5.63 M/mm3 (4.2-5.4); Red Cell Distribution Width 14.9 % (11.5-14.5); White Blood Count 13.1 K/mm3 (4.5-10.0)
[2021-04-18 14:45] LABS: Alanine Aminotransferase 17 U/L (4-35); Albumin Level 4.5 g/dL (3.5-5.1); Alkaline Phosphatase 50 U/L (38-126); Anion Gap 12 mmol/L (8-16); Aspartate Amino Transferase 36 U/L (14-36); Bilirubin,Total 0.4 mg/dL (0.2-1.3); Blood Urea Nitrogen 18 mg/dL (7-17); Calcium 10.1 mg/dL (8.4-10.2); Carbon Dioxide 24 mmol/L (22-30); Chloride 104 mmol/L (98-107); Estimated CRCL calculation 45 ml/min; Estimated Glomerular Filt Rate 55; Glucose 159 mg/dL (65-105); Lipase 239 U/L (23-300); Potassium 4.3 mmol/L (3.4-5.0); Sodium 140 mmol/L (137-145)
[2021-04-18 15:48] VITALS: BP 108/83; PULSE 95; RESP 15; O2SAT 96
--- NOTE | 2021-04-18 15:48 | PC.NURSE ---
x2 weeks N/V/D, saw PCP on Tuesday and started on Flagyl, Cipro, and Zofran. C/o pressure, like I have to burp to epigastric radiating upwards, hx GERD. For past 3-4 days creamy, like yaima stools. Denies urinary s/s
[2021-04-18 16:00] LABS: Add Urine Microscopic? YES; Appearance Urine Clear (Clear); Bilirubin Urine Negative (Negative); Blood Urine Negative (Negative); Color Urine Yellow (Yellow); Glucose Urine UA 3+ mg/dL (Negative); Ketones Urine Trace mg/dL (Negative); Leukocyte Esterase Ur Trace LEU/UL (Negative); Mucus Urine Rare /lpf; Nitrate Urine Negative (Negative); Protein Urine Negative (Negative); RBC Urine 0-2 /hpf (0-2); Squamous Epithelial Cell Urine Rare /hpf (Few); Urobilinogen Urine Negative mg/dL (<2.0); WBC Urine 0-3 /hpf
[2021-04-18 16:10] LABS: Specific Grav Ur 1.045 (1.001-1.035)
--- NOTE | 2021-04-18 16:27 | ECG_ITS ---
Measurements Intervals [place] Rate: 90 P: 38 SD: 143 QRS: -5 QRSD: 93 T: 35 QT: 392 QTc: 480 Interpretive Statements SINUS RHYTHM LOW QRS VOLTAGE IN PRECORDIAL LEADS BASELINE ARTIFACT- II, III, V1-V6 BORDERLINE ECG Electronically Signed On 04-18-2021 20:03:22 CDT by Zen Donis D.O.
--- NOTE | 2021-04-18 16:28 | ED.GENADULT ---
HPI - General Adult General Chief complaint: Nausea/Vomiting/Diarrhea Stated complaint: throwing up for 21 days Time Seen by Provider: 04/18/21 15:35 Source: patient Mode of arrival: ambulatory Limitations: no limitations History of Present Illness HPI narrative: Patient presents for evaluation of GI symptoms for the last 18 days. She reports epigastric pain which is fairly constant, described as someone sitting on it , nausea, vomiting, diarrhea. She started primary doctor 5 days ago for this and was given prescriptions for an antiemetic, flagyl and cipro. She has taken the antibiotics and has been able to keep abdominal, although she does not note any significant improvement in her symptoms or after. She is experienced hot flashes and diaphoresis without objective fever or chills. She is having approximately 10 bowel movements per day, without the presence of blood or mucus in the stool. She locates her last colonoscopy was approximately 3 years ago and was normal per her reports. She states that there was some gastric irritation on her EGD. Surgical history positive for c section. No one else has similar symptoms. She does not consume ETOH. PMH positive for hypertension, hyperlipidemia, coronary artery disease s/p [place] with stent placement, DM2. She has been checking her BS with most readings in 100-110 range. She has a Free Style Genia and is compliant with metformin, jardiance and bydureon. Related Data Home Medications Medication Instructions Recorded Confirmed paroxetine HCl 20 mg tablet 20 mg PO TID tablet 09/19/19 10/20/20 rosuvastatin 20 mg tablet 20 mg PO DAILY 09/19/19 10/16/20 metformin 500 mg PO BID 01/28/20 10/16/20 Jardiance 25 mg PO DAILY 01/29/20 10/16/20 cholecalciferol (vitamin D3) 50 50 mcg PO DAILY 06/03/20 10/16/20 mcg (2,000 unit) capsule coenzyme Q10 100 mg capsule 200 mg PO DAILY 06/03/20 10/20/20 evening primrose oil 500 mg capsule 500 mg PO DAILY cap 06/03/20 10/16/20 fenofibrate 160 mg tablet 160 mg PO DAILY 06/03/20 10/16/20 glimepiride 1 mg tablet 0.5 mg PO QAM 06/03/20 10/16/20 enmraorrbyhi-Oq-ivhb-minerals 1 tablet PO DAILY 06/03/20 10/20/20 omega-3 fatty acids 1,000 mg 1,000 mg PO BID 06/03/20 10/20/20 capsule aspirin 81 mg tablet,delayed 81 mg PO DAILY 09/30/20 10/16/20 release clopidogrel 75 mg tablet 75 mg PO DAILY 09/30/20 10/16/20 cetirizine [Wal-Zyr (cetirizine)] 5 mg PO DAILY PRN 10/20/20 10/20/20 pantoprazole 40 mg PO DAILY 10/20/20 10/20/20 phosphatidyl choline mixture 10/20/20 Allergies Allergy/AdvReac Type Severity Reaction Status Date / Time dulaglutide [[facility]] AdvReac Severe Nausea and Verified 04/18/21 14:22 Vomiting diclofenac AdvReac Other Verified 04/18/21 14:22 Review of Systems Review of Systems: Narrative: CONSTITUTIONAL: Reports hot flashes, diaphoresis and nine pound weight loss in last 18 days. Denies chills and objective fever EYES: Denies visual changes, redness, or discharge. ENT: Denies rhinorrhea, congestion, sore throat, or otalgia. CARDIOVASCULAR: Denies chest pain, palpitations, or edema. RESPIRATORY: Denies cough or dyspnea. GASTROINTESTINAL:Reports abdominal pain, nausea, vomiting and diarrhea. GENITOURINARY: Denies dysuria or hematuria. SKIN: Denies rash or itching. MUSCULOSKELETAL: Denies back pain, joint pain, or myalgia. NEUROLOGIC: Denies headache, numbness, dizziness, or weakness. PSYCHIATRIC: Denies anxiety or depression. [facility] Past Medical History Medical History Anxiety Bulging discs Depression Essential hypertension Excessive daytime sleepiness Frequent headaches GERD (gastroesophageal reflux disease) Gastritis July 2019 HLD (hyperlipidemia) Lichen planus NSTEMI (non-ST elevated myocardial infarction) Seasonal allergies Subacute sinusitis Type 2 diabetes mellitus Surgical History Surgical History (Reviewed 04/18/21 @ 16:29 by Tony Nguyen, F
[2021-04-18] MEDS: ONDANSETRON INJ 4 MG/2 ML VIAL IV PUSH (16:50)
[2021-04-18] MEDS: FAMOTIDINE 20 MG/2 ML VIAL IV PUSH (16:50)
[2021-04-18] MEDS: SODIUM CHLORIDE 0.9% IV 1,000 ML 999 ML IV CONT (16:50)
[2021-04-18] MEDS: MORPHINE SULFATE (*CRX) 2 MG/ML INJ IV PUSH (16:50)
[2021-04-18 17:03] LABS: Lactic Acid Reflex 1.2 mmol/L (0.7-2.1)
[2021-04-18 17:16] LABS: Troponin I < 0.012 ng/mL (0.000-0.034)
[2021-04-18 17:45] VITALS: BP 119/83; PULSE 101; RESP 17; O2SAT 96
[2021-04-18 19:08] VITALS: BP 132/90; PULSE 91; RESP 14; O2SAT 96
== END 2021-04-18 19:22 | disposition home or self-care (01) ==
PROVIDERS: Emergency Medicine; Emergency Provider Nurse Practitioner
DX: K52.9 Noninfective gastroenteritis and colitis, unspecified (principal); I10 Essential (primary) hypertension; E78.5 Hyperlipidemia, unspecified; I25.10 Atherosclerotic heart disease of native coronary artery without angina pectoris; I25.2 Old myocardial infarction; Z95.5 Presence of coronary angioplasty implant and graft; E11.9 Type 2 diabetes mellitus without complications; F32.9 Major depressive disorder, single episode, unspecified; F41.9 Anxiety disorder, unspecified; K21.9 Gastro-esophageal reflux disease without esophagitis; L43.9 Lichen planus, unspecified; Z79.84 Long term (current) use of oral hypoglycemic drugs; Z79.899 Other long term (current) drug therapy; Z77.22 Contact with and (suspected) exposure to environmental tobacco smoke (acute) (chronic); Z79.82 Long term (current) use of aspirin
CPT/HCPCS: 36415; 71045; 74177; 80053; 81001; 83605; 83690; 84484; 85025; 93005; 96361; 96374; 96375; 99284; J2270; J2405; J7030; Q9967

== ENCOUNTER 2022-08-10 13:30 | Outpatient (RCR) | payer MEDICARE, SELFPAY ==
--- NOTE | 2022-06-17 10:45 | PTOPEVAL ---
PHYSICAL THERAPY INITIAL EVALUATION. Thank you for referring My Galan to [facility].? The patient is scheduled to be seen for therapy? 2x/week for 4 weeks. Please review, sign, date and return this plan of care DAVID. I agree with and certify that the following plan of care is medically necessary. Referring Physician Date Attending Provider: Bran Brady *PT Outpatient Evaluation Start: 06/17/22 Evaluation Information Diagnosis lumbar pain Onset 2 months Subjective Information Pt states she has lumbar disc Query Text:As Reported By Patient/ degeneration. She states in Family the morning it is hard to sit upright in a chair because her back and her legs are too tight. Pt states she has a lot of stairs in her house and this aggravated her back pain and carrying items. Pt states laying flat usually helps her pain. She reports radiating symptoms down to her R ankle. Prior Level of Function Occupation retired Pain Assessment Lower Back Reported Pain Level 2 Pain Description Crushing,Sharp,Tightness Pain Radiation Right Leg Pain Frequency Acute,Intermittent Lowest Pain Intensity 1 Greatest Pain Intensity 7 Lumbar ROM Lumbar Flexion Active [place] Lumbar Extension (0-40) 40 Lateral Flexion able to reach 2 in able Query Text:Active Hands to: lateral knee joint line, veena Lateral Rotation Right (0-45) 20 Lateral Rotation Left (0-45) 20 Lumbar Comments lumbar flexion 7 cm of change lumbar extension 3 cm of change Lower Extremity Range of Motion General Lower Extremity Range of Motion WFL/Left,WFL/Right Gross Lower Extremity Range of Motion good hip extension Lower Extremity Muscle Strength Testing Gross Lower Extremity Strength veena hip flexion 4+/5 veena knee flexion/extension 5/5 veena hip abduction 4-/5 veena hip extension 4/5 Muscle Length Testing Terry Test Shortened Muscles Short (R) Rectus Femoris,Short (L) Rectus Femoris Two-Joint Hip Flexor Shortened Muscles Short (L) Ilial Tib Band Piriformis w/Hip Flexion <90 Degrees (R) WFL,(L) WFL Right Prone Hip Internal Rotator Length 30 Left Prone Hip Internal Rotator Length ( 30 Right Prone Hip External Rotator Length 60 Left Prone Hip External Rotator Length ( 60
--- NOTE | 2022-06-24 11:27 | PCPTNOTE ---
Patient called 06/24 and stated she accidentally double booked a Dr's appointment with PT so appointment was rescheduled to 06/25.
--- NOTE | 2022-06-25 12:31 | PCPTNOTE ---
Pt called and cancelled due to having to watch granddaughter.
--- NOTE | 2022-06-30 11:26 | PCPTNOTE ---
Addendum entered by Anitra Daly, GLUING CREW LEADER 06/30/22 11:29: Patient rescheduled her appointment for 07/01/22 at 14:30. Original Note: Patient did not show up for scheduled appointment this date. Called and spoke to patient and she had stated she thought her appointment was later today.
--- NOTE | 2022-07-07 10:50 | PCPTNOTE ---
Patient did not show up for scheduled appointment this date. Called and had to leave a message.
--- NOTE | 2022-07-15 10:50 | PTOPPROG ---
Evaluation Information Assessment Status Progress Diagnosis lumbar pain Onset 2 months Subjective Information Pt states she feels like things are about the same but her pain has decreased some. She states she is really stiff until about noon and then she can sit comfortably. Pt reports poor complinace with her HEP, she states she mainly does them when she cannot sleep, and this helps. Pt states she wants to do her exercises more. Assessment PT Clinical Summary My presents to therapy today for her progress report following 7 visits of therapy to treat her low back pain. She demonstrates improved lumbar mobility and increased LE strength but continues to have pain with end range of motion. She reports fair compliance with her HEP but discussed today, her plan to increase this. She continues to have numbness and tingling down her R LE. Continuation of skilled physical therapy services are indicated to continue LE/hip stretching, core strength, and body mechanics to progress towards unlimited functional mobility. Plan of Care Interventions Electrical Stimulation,Hot Pack/Cold Pack,Manual Therapy,Neuro Re-education,Patient/Caregiver Educati,Therapeutic Activities,Therapeutic Exercise PT Services Indicated Yes Treatment Frequency and 1x/wk for 4 wks Duration These treatments will address the objective and functional deficits as defined above. The patient will be advanced safely and appropriately in order for the patient to progress towards his/her prior level of function. Additional exercises will be introduced and as well as a comprehensive home exercise program upon discharge, if needed, ?to ensure carryover of functional gains achieved in the clinic. This treatment plan has been reviewed and agreement upon by the patient.
--- NOTE | 2022-08-10 14:12 | PTOPDC ---
Assessment and note entered by Charlie Lucas, PT, DPT Evaluation Information Assessment Status Discharge Diagnosis lumbar pain Onset 3 months Subjective Information Pt states she has been more diligent when performing her exercises. She states she feels better when she completes them more regularly. She states she is sore today from scrubbing the floor yesterday. Reported Pain Level Pain Score 4: Self Report Assessment PT Clinical Summary My presents to therapy today for her progress report following 11 visits of therapy to treat her chronic low back pain. Today she reports no radiating symptoms in the last week and today has also been her only day with pain. She was able to scrub the floor on her hands and knees yesterday. She reports improving her compliance with her HEP. Skilled physical therapy services are no longer indicated and My will be discharged at this time. She was instructed to follow up with her referring provider if symptoms worsen. Plan of Care PT Services Indicated No Treatment Frequency and to be discharged Duration
== END 2022-08-10 14:22 | disposition home or self-care (01) ==
LOC: ANHPT 13:30
DX: M54.50 Low back pain, unspecified (principal)
CPT/HCPCS: 97110; 97112; 97140; 97161; 97530; 99199

== ENCOUNTER → 2022-09-14 12:11 | Outpatient (CLI) | payer MEDICARE, SELFPAY ==
--- NOTE | ~2022-09-14 | MM_ITS ---
EXAMINATION: MM screening [facility] BI w nelly HISTORY: Screening mammogram TECHNIQUE: Craniocaudal and mediolateral oblique 3-D tomosynthesis images were obtained and synthetic 2-D images were generated. CAD analysis was submitted and interpreted. COMPARISON: December 13, 2019 bilateral screening mammogram August 17, 2018 bilateral diagnostic mammography and limited right breast ultrasound June 10, 2017 bilateral screening mammogram BREAST PARENCHYMAL COMPOSITION: The breasts are heterogeneously dense, which may obscure small masses . FINDINGS: There is no evidence of suspicious mass, calcification, or architectural distortion to sugg est malignancy in either breast. There has been no suspicious interval change. IMPRESSION: 1. No mammographic evidence of malignancy. 2. Recommend routine screening mammography in one year. BI-RADS Category 1: Negative Reviewed, dictated and finalized at location A. LE TAILOR
== END ==
PROVIDERS: PCP Family Medicine; Visit Provider Family Medicine
DX: Z12.31 Encounter for screening mammogram for malignant neoplasm of breast (principal)
CPT/HCPCS: 77063; 77067

== ENCOUNTER → 2023-03-01 11:16 | Outpatient (CLI) | payer MEDICARE, SELFPAY ==
--- NOTE | ~2023-03-01 | US_ITS ---
EXAMINATION: US renal BI DATE: 03/01/2023 11:33 INDICATION: Chronic kidney disease, stage 3 unspecified TECHNIQUE: Multiple grayscale and Doppler ultrasound images of the kidneys were obtained. COMPARISON: CT abdomen pelvis 04/18/2021 FINDINGS: The right kidney measures 9.8 x 5.1 x 5.2 cm. The left kidney measures 10.6 x 5.1 x 5.2 cm. The kidne ys demonstrate normal parenchymal echogenicity. Diffusely hyperechoic liver parenchyma. There is no h ydronephrosis. The bladder is normal. IMPRESSION: Unremarkable renal sonogram findings. Echogenic liver, most commonly due to steatosis but also can be seen with hepatitis and fibrosis. Reviewed, dictated and finalized at location K. IMPRESSION: Unremarkable renal sonogram findings. Echogenic liver, most commonly due to ronni atosis but also can be seen with hepatitis and fibrosis.
== END ==
PROVIDERS: PCP Internal Medicine; Visit Provider Internal Medicine Endocrinology, Diabetes & Metabolism
DX: N18.30 Chronic kidney disease, stage 3 unspecified (principal)
CPT/HCPCS: 76775

== ENCOUNTER 2023-04-03 14:31 | Emergency (ER) | payer MEDICARE, SELFPAY ==
--- NOTE | ~2023-04-03 | CT_ITS ---
EXAMINATION: CT brain wo con DATE: 04/03/2023 14:59 INDICATION: Fall with head injury TECHNIQUE: Computed tomography (CT) of the head was performed without intravenous contrast. Sagittal and coronal reconstructions were performed. The mA was adjusted according to patient size. Iterative reconstruction technique was employed. The dose-length product was 605.33 mGy-cm. COMPARISON: head CT dated 09/05/2019 FINDINGS: Right parieto-occipital scalp hematoma with overlying skin laceration. No fracture. No acute intracra nial hemorrhage, acute infarction or abnormal extra axial fluid collection. There is mild scattered w rosalinda matter hypoattenuation consistent with chronic small vessel ischemic disease. Ventricles are no rmal and symmetric. No mass/mass effect. Intracranial calcified cerebral atherosclerosis is noted. Th e orbits, paranasal sinuses and mastoid air cells are normal. IMPRESSION: 1. Right parieto-occipital scalp hematoma and overlying skin laceration. No fracture or acute intracr anial process. 2. Mild periventricular predominant white matter hypoattenuation consistent with chronic small vessel ischemic disease. Reviewed, dictated and finalized at location A. IMPRESSION: 1. Right parieto-occipital scalp hematoma and overlying skin laceration. No fra cture or acute intracranial process. 2. Mild periventricular predominant white matter hypoattenuation consistent wit h chronic small vessel ischemic disease.
--- NOTE | ~2023-04-03 | CT_ITS ---
EXAMINATION: CT cervical spine wo con DATE: 04/03/2023 14:59 INDICATION: Fall with head injury TECHNIQUE: Computed tomography (CT) of the cervical spine was performed without intravenous contrast. Automated exposure control and iterative reconstruction technique were employed. The dose-length pro duct was 470.54 mGy-cm. COMPARISON: Cervical spine MR dated 12/05/[address] dated 06/21/2017 FINDINGS: Gradient of the normal cervical lordosis. 3 mm anterolisthesis C4 on C5. Severe osteoarthritis at the atlantoaxial articulation. Vertebral body heights are normal. No acute fracture. Moderate to severe disc height loss with fusion across the bilateral uncovertebral joints and posterior disc space at C3 -C4. Additional moderate to severe disc height loss at C5-C6, moderate disc height loss at C4-C5 and C6-C7 and mild disc height loss at C2-C3. There is also mild disc height loss at T1-T2, moderate at T 2-T3 and severe at T3-T4. Multilevel mild disc height loss resulting from small disc bulges and poste rior disc osteophyte complexes throughout the cervical spine which are better appreciated on prior MR I. There is also multilevel moderate to severe uncovertebral and facet osteoarthritis throughout the cervical spine with fusion across the bilateral T3-T4 facet joints. This contributes to multilevel bi lateral mild to moderate neural foraminal stenosis throughout the cervical spine and mild bilateral n eural foraminal stenosis in the visualized upper thoracic spine. Small amount of atherosclerotic calc ification of the bilateral carotid bulbs. Visually cervical soft tissues are otherwise unremarkable. Mild atelectasis at the bilateral apices likely related to at least partial expiratory phase of respi ration. IMPRESSION: 1. Severe cervical spondylosis. No acute osseous abnormality. Reviewed, dictated and finalized at location A.
[2023-04-03 14:35] VITALS: BP 141/86; PULSE 71; RESP 18; TEMP 37; O2SAT 99
--- NOTE | 2023-04-03 16:20 | ED.HEATRA ---
HPI - Head Injury General Chief complaint: Head Injury Stated complaint: fall, head injury Time Seen by Provider: 04/03/23 14:42 Source: patient Mode of arrival: ambulatory Limitations: no limitations History of Present Illness HPI Narrative: Patient is a 67-year-old female who presents to the ED with report of head injury. Patient reports she was on a two-step stepladder when she lost her balance and fell backwards, landing on a carpeted floor. She did hit her head and sustained a laceration to her right parietal scalp. She does not think she lost consciousness. Denied any prodromal symptoms prior to the fall. She was able to get up off the ground by herself and called for her . Patient denies any neck or back pain. Denies dizziness, lightheadedness, nausea, vomiting, vision changes, weakness. Denies any other injuries from the fall. Tetanus status up-to-date. Related Data Home Medications Medication Instructions Recorded Confirmed paroxetine HCl 20 mg tablet 20 mg PO TID 09/19/19 03/16/23 rosuvastatin 20 mg tablet (Crestor) 20 mg PO DAILY 09/19/19 03/16/23 metformin 500 mg tablet,extended 500 mg PO BID 01/28/20 03/16/23 release 24 hr cholecalciferol (vitamin D3) 50 50 mcg PO DAILY 06/03/20 03/16/23 mcg (2,000 unit) capsule coenzyme Q10 100 mg capsule (Co 200 mg PO DAILY 06/03/20 03/16/23 Q-10) fenofibrate 160 mg tablet 160 mg PO DAILY 06/03/20 03/16/23 glimepiride 1 mg tablet 0.5 mg PO QAM 06/03/20 03/16/23 mzwgmfdfznxg-Sk-govg-minerals 1 tablet PO DAILY 06/03/20 03/16/23 (Multiple Vitamin, Womens tablet) aspirin 81 mg tablet,delayed 81 mg PO DAILY 09/30/20 03/16/23 release (Adult Low Dose Aspirin) pantoprazole 40 mg tablet,delayed 40 mg PO DAILY 10/20/20 03/16/23 release bupropion HCl 150 mg 24 hr tablet, 150 mg PO QAM 01/12/23 03/16/23 extended release evolocumab 140 mg/mL subcutaneous 140 mg subcut ONCE 01/12/23 03/16/23 pen injector (Repatha SureClick) montelukast 10 mg tablet 10 mg PO DAILY 01/12/23 03/16/23 Allergies Allergy/AdvReac Type Severity Reaction Status Date / Time [facility] AdvReac Severe Nausea and Verified 03/16/23 12:22 Vomiting diclofenac AdvReac Other Verified 03/16/23 12:22 Review of Systems Review of Systems: CONSTITUTIONAL: Denies fever, chills, or sweats. EYES: Denies visual changes. CARDIOVASCULAR: Denies chest pain. RESPIRATORY: Denies dyspnea. GASTROINTESTINAL: Denies abdominal pain, nausea, vomiting, or diarrhea. SKIN: See HPI. MUSCULOSKELETAL: Denies back pain, neck pain, joint pain, or myalgia. NEUROLOGIC: See HPI. All systems reviewed & are unremarkable except as noted in HPI and below PMFSH Past Medical History Medical History Anxiety Bulging discs Depression Essential hypertension Excessive daytime sleepiness Frequent headaches GERD (gastroesophageal reflux disease) Gastritis July 2019 HLD (hyperlipidemia) Lichen planus NSTEMI (non-ST elevated myocardial infarction) Seasonal allergies Subacute sinusitis Type 2 diabetes mellitus Surgical History Surgical History H/O section History of bunionectomy History of esophagogastroduodenoscopy (EGD) Performed by Dr. Munoz demonstrated gastritis July 2019 History of sinus surgery Family History Family History (Updated 01/12/23 @ 11:25 by Ellis Lake MD) Mother Heart disease Hypercholesterolemia COPD (chronic obstructive pulmonary disease) Esophageal stricture Diabetes mellitus Father Heart disease Nephrolithiasis Grandparent Breast cancer Maternal grandmother Sibling Diabetes mellitus Social History Social History Social History: Primary care physician: Dr. Yelena Valdez Code status: Full code Smoking status: Ne
== END 2023-04-03 16:25 | disposition home or self-care (01) ==
PROVIDERS: Emergency Provider Physician Assistant; PCP Family Medicine
DX: S09.90XA Unspecified injury of head, initial encounter (principal); S01.01XA Laceration without foreign body of scalp, initial encounter; W11.XXXA Fall on and from ladder, initial encounter; I10 Essential (primary) hypertension; E78.5 Hyperlipidemia, unspecified; I25.2 Old myocardial infarction; E11.9 Type 2 diabetes mellitus without complications; K21.9 Gastro-esophageal reflux disease without esophagitis; F41.9 Anxiety disorder, unspecified; F32.A Depression, unspecified; Z79.84 Long term (current) use of oral hypoglycemic drugs; Z79.82 Long term (current) use of aspirin
CPT/HCPCS: 12002; 70450; 72125; 99284

== ENCOUNTER → 2023-08-24 09:04 | Outpatient (CLI) | payer MEDICARE, SELFPAY ==
--- NOTE | ~2023-08-24 | US_ITS ---
Limited Abdominal Sonogram: Real-time sonographic imaging of the right upper quadrant was performed. Clinical History: Abdominal pain Findings: The liver appears heterogeneous, with no evidence of mass lesion or bile duct dilatation. Main portal vein demonstrates normal direction of flow. The gallbladder is well distended, and appear s normal with no evidence of gallstone or wall thickening. The common bile duct measures 4 mm. The v isualized pancreas, aorta, and IVC are unremarkable. Impression: Probable diffuse fatty infiltration of liver. Correlate for other chronic liver disease. Reviewed, dictated and finalized at location M. Impression: Probable diffuse fatty infiltration of liver. Correlate for other chronic liver disease.
== END ==
PROVIDERS: Visit Provider Family Medicine
DX: R10.11 Right upper quadrant pain (principal)
CPT/HCPCS: 76705

== ENCOUNTER 2024-03-29 08:56 | Emergency (ER) | payer MEDICARE, SELFPAY ==
--- NOTE | ~2024-03-29 | XR_ITS ---
XR chest 2V DATE: 03/29/2024 09:23 INDICATION: Midline chest pain. History of cardiac stent. TECHNIQUE: PA and lateral views COMPARISON: 04/18/2021 AP chest FINDINGS: Normal heart size. Prominent aortic arch calcification and some calcification of the descen ding and descending thoracic and abdominal aorta is noted. No hilar or mediastinal enlargement. No pulmonary infiltrate or consolidation, pleural effusion or pu lmonary vascular congestion or pneumothorax is detected. Mild degenerative change of the thoracic spi ne. IMPRESSION: No active cardiopulmonary disease Aortic atherosclerosis Reviewed, dictated and finalized at location B.
--- NOTE | 2024-03-29 08:57 | ECG_ITS ---
SEE SCANNED COPY FOR CONFIRMED REPORT MTDD
[2024-03-29 09:01] VITALS: BP 143/87; PULSE 69; RESP 17; TEMP 36.6; O2SAT 97
[2024-03-29 09:13] LABS: Basophils Absolute Auto 0.1 K/mm3 (0.0-0.1); Basophils Percent Auto 1.1 % (0.2-1.2); Eosinophils Absolute Auto 0.3 K/mm3 (0-0.3); Eosinophils Percent Auto 5.1 % (0-4.4); Hematocrit 44.3 % (37.0-47.0); Hemoglobin 14.5 g/dL (12.0-15.0); Immature Granulocyte Absolute 0.01 K/mm3 (0.00-0.031); Immature Granulocyte Percent A 0.2 % (0-0.5); Lymphocytes Absolute Auto 2.08 K/mm3 (0.9-3.2); Mean Corpuscular HGB Conc 32.7 g/dl (32-36); Mean Corpuscular Hemoglobin 27.1 pg (26-34); Mean Corpuscular Volume 82.6 fl (80-100); Mean Platelet Volume 10.7 fl (7.4-10.4); Monocytes Absolute Auto 0.7 K/mm3 (0.1-0.6); Monocytes Percent Auto 10.3 % (2.6-8.5); Neutrophils Absolute Auto 3.4 K/mm3 (1.3-6.7); Neutrophils Percent Auto 51.3 % (45.5-73.1); Platelet Count Result 241 k/mm3 (150-375); Red Blood Count 5.36 M/mm3 (4.2-5.4); Red Cell Distribution Width 14.9 % (11.5-14.5); White Blood Count 6.5 K/mm3 (4.5-10.0)
[2024-03-29 09:23] LABS: INR 0.9
[2024-03-29 09:24] LABS: Partial Thromboplastin Time 30.3 Seconds (22.3-36.8)
[2024-03-29 09:35] LABS: Alanine Aminotransferase 22 U/L (6-35); Albumin Level 4.7 g/dL (3.5-5.1); Alkaline Phosphatase 84 U/L (38-126); Anion Gap 11 mmol/L (4-12); Aspartate Amino Transferase 27 U/L (14-36); Bilirubin,Total 0.6 mg/dL (0.2-1.3); Blood Urea Nitrogen 19 mg/dL (7-17); Calcium 9.5 mg/dL (8.4-10.2); Carbon Dioxide 19 mmol/L (22-30); Chloride 108 mmol/L (98-107); Estimated CRCL calculation 56 ml/min; Estimated Glomerular Filt Rate > 60; Glucose 184 mg/dL (65-110); Lipase 282 U/L (23-300); Potassium 4.7 mmol/L (3.4-5.0); Sodium 138 mmol/L (137-145)
[2024-03-29 09:47] LABS: Troponin I < 0.012 ng/mL (0.000-0.034)
[2024-03-29 11:00] VITALS: BP 137/80; PULSE 70; RESP 18; O2SAT 96
--- NOTE | 2024-03-29 11:28 | ED.CHESTPAIN ---
HPI - Chest Pain General Chief Complaint: Chest Pain Stated Complaint: chest pain Time Seen by Provider: 03/29/24 11:25 Source: patient Mode of arrival: ambulatory Limitations: no limitations History of Present Illness HPI narrative: Patient presents with chest pain that started approximately 6:00 a.m. this morning. She also states that it was slightly epigastric abdominal pain. It was intense for approximately 2 minutes and described as a tightness or pressure and the chest pain improved but she does state that she has some lingering residual achiness. She has a history of a myocardial infarction in 2019 status post 1 stent placed in [facility]. She follows with her capacity manager Dr. Barry who she saw Tuesday and she is scheduled for an upcoming cardiac catheterization on 04/10/2024 but today's episode was intense enough that she was worried. She takes a daily 81 mg of aspirin but denies any other anticoagulation. Other medication she takes not listed below includes telesartan. Nonsmoker. She does have a history of hypertension and hyperlipidemia. No family history of a first-degree relative with a myocardial infarction before the age of 65. No personal history of TIA or stroke. Mother/brother/ sister all have/had hypercholesterolemia Related Data Home Medications Medication Instructions Recorded Confirmed metformin 500 mg tablet,extended 500 mg PO BID 01/28/20 02/09/24 release 24 hr cholecalciferol (vitamin D3) 50 50 mcg PO DAILY 06/03/20 02/09/24 mcg (2,000 unit) capsule coenzyme Q10 100 mg capsule (Co 200 mg PO DAILY 06/03/20 02/09/24 Q-10) aspirin 81 mg tablet,delayed 81 mg PO DAILY 09/30/20 02/09/24 release (Adult Low Dose Aspirin) pantoprazole 40 mg tablet,delayed 40 mg PO DAILY 10/20/20 02/09/24 release evolocumab 140 mg/mL subcutaneous 140 mg subcut ONCE 01/12/23 02/09/24 pen injector (Angelique Meza) dapagliflozin propanediol 10 mg 10 mg PO QAM 02/09/24 tablet (Farxiga) glimepiride 1 mg tablet 2 mg PO QAM 02/09/24 02/09/24 metoprolol succinate 25 mg 25 mg PO QPM 02/09/24 tablet,extended release 24 hr sertraline 50 mg tablet 50 mg PO DAILY 02/09/24 Allergies Allergy/AdvReac Type Severity Reaction Status Date / Time [facility] AdvReac Severe Nausea and Verified 02/09/24 10:37 Vomiting diclofenac AdvReac Other Verified 02/09/24 10:37 PMFSH Past Medical History Medical History (Updated 03/30/24 @ 00:01 by Shree Lunsford) Anxiety Bulging discs Depression Essential hypertension Excessive daytime sleepiness Frequent headaches GERD (gastroesophageal reflux disease) Gastritis July 2019 HLD (hyperlipidemia) Lichen planus NSTEMI (non-ST elevated myocardial infarction) Seasonal allergies Subacute sinusitis Type 2 diabetes mellitus Surgical History Surgical History (Updated 03/30/24 @ 10:12 by Monica Call MD) H/O section History of bunionectomy History of esophagogastroduodenoscopy (EGD) Performed by Dr. Munoz demonstrated gastritis July 2019 History of heart artery stent x1 [facility] History of sinus surgery Family History Family History (Updated 01/12/23 @ 11:25 by Ellis Lake MD) Mother Heart disease Hypercholesterolemia COPD (chronic obstructive pulmonary disease) Esophageal stricture Diabetes mellitus Father Heart disease Nephrolithiasis Grandparent Breast cancer Maternal grandmother Sibling Diabetes mellitus Sibling Hypercholesterolemia ALS (amyotrophic lateral sclerosis) cause of at age 69yo Sibling Hypercholesterolemia Social History Social History (Updated 02/09/24 @ 11:28 by Antonietta Castillo MA) Social History: Primary care physician: Dr. Yelena Valdez Code status: Full code Smoking status: Never smoker Second hand tobacco smoke exposure: Yes ( smoker 45 yrs) Alcohol intake: never Substance use: never Substance us
--- NOTE | 2024-03-29 11:58 | ECG_ITS ---
SEE SCANNED COPY FOR CONFIRMED REPORT MTDD
[2024-03-29 12:31] LABS: Troponin I < 0.012 ng/mL (0.000-0.034)
[2024-03-29 13:00] VITALS: BP 144/84; PULSE 78; RESP 19; O2SAT 97
[2024-03-29] MEDS: BELLADONNA ALK/PHENOB ELIX 10 ML, MAG HYDROX/ALUMINUM HYD/SIMETH 30 ML, LIDOCAINE HCL 2... PO (13:31)
[2024-03-29 14:00] VITALS: BP 138/76; PULSE 82; RESP 20; O2SAT 96
== END 2024-03-29 14:47 | disposition home or self-care (01) ==
PROVIDERS: Emergency Provider Student in an Organized Health Care Education/Training Program; PCP Family Medicine
DX: R07.9 Chest pain, unspecified (principal); E11.65 Type 2 diabetes mellitus with hyperglycemia; I10 Essential (primary) hypertension; E78.5 Hyperlipidemia, unspecified; F41.9 Anxiety disorder, unspecified; K21.9 Gastro-esophageal reflux disease without esophagitis
CPT/HCPCS: 36415; 71046; 80053; 83690; 84484; 85025; 85610; 85730; 93005; 99284; A9270

== ENCOUNTER 2025-01-10 16:15 | Emergency (ER) | payer MEDICARE, SELFPAY ==
[2025-01-10 16:39] VITALS: BP 136/86; PULSE 84; RESP 16; TEMP 36.7; O2SAT 96
--- OUTSIDE RECORDS SUMMARY | 2025-01-10 16:58 | XMS_ITS | Continuity of Care Document ---
Author Organization [facility] Address [address] [place] [address] Phone Care Team Providers Care Senior Application Security Consultant Name Role Phone Ney Briggs MD Unavailable Unavailable Advance Directives Directive Yes / No Effective Date File Name No Information Encounters Encounter Description Practice Location Reason(s) For Visit Diagnoses Date Provider Providers Copied on Encounter [facility], [address], [place], [place], [id number], [place] tel:[phone] [facility] No Information 4-[address]. [address] [place], [address], [place]. tel:[phone] Referring Provider: Anthony Harrell OD, [address] [place], [address]. tel:[phone] Family History Family Member Type Diagnosis Age At Onset No Information Payers Payer name Insurance type Covered democrat ID Authoriza tion(s) No Information Social History Type Description Quantity Date Captured Comments Sex Female Smoking Status No Information Chief Complaint And Reason For Visit No Information Reason For Referral Reason For Referral No Information History Of Present Illness Encounter Date Complaint History Of Prese nt Illness No Information Functional Status Date Functional Assessmen t No Information Instructions Date Instruction Additional Infor mation No Information Assessments Type Assessment Date No Information Patient Care Teams Name Effective Dates (start - stop) Status Members No Information
--- OUTSIDE RECORDS SUMMARY | 2025-01-10 16:58 | XMS_ITS | Referral Summary ---
Author Organization [facility] Address [address] [place] [address] Care Team Providers Care Geological Aide Name Role Phone Tano Fregoso MD Primary Care Provider + Source Comments [facility],non-owned Affiliates and Associated Physician Practices is amultiple site organization consisting of ambulatory clinics and hospital sitesin [place], [place], [place] and [place]. This disclosure is being madepursuant to the Care Everywhere program and may not contain all information available regarding this patient. Last updated 18.[facility] Allergies Active Allergy Reactions Criticality Noted Date Comments Diclofenac Epolamine Unknown 04/13/2021 Dulaglutide Diarrhea,Vomiting High 09/26/2020 Treated in ER, stomach pain, diarrhea, pancreatis Exenatide Other Low 02/21/2023 Pancreatitis Medications * Be aware that medications may not be up to date on this document. Alwaysverify current medications with the patient. Medication Sig Dispensed Refills Start Date End Date Status telmisartan (MICARDIS) 20 MG tablet Take 1 (one) tablet by mouth once daily 01/31/2019 Active pantoprazole EC (PROTONIX) 40 MG tablet Take 1 (one) tablet by mouth once daily 02/02/2019 Active aspirin EC (Ecotrin) 81 MG tablet Take 1 (one) tablet by mouth once daily Active Farxiga 10 MG tablet Take 1 (one) tablet by mouth every morning 10/18/2023 Active Repatha SureClick 140 MG/ML auto-injector INJECT 1 ML UNDER THE SKIN EVERY 2 WEEKS IN THE MORNING 07/28/2023 Active glimepiride (Amaryl) 2 MG tablet Take 2 (two) tablets by mouth 2 times daily, before breakfast and supper 10/27/2023 Active metoprolol succinate XL 24hr (Toprol XL) 25 MG tablet Active amitriptyline (Elavil) 25 MG tablet 12/01/2023 Act gio buPROPion XL 24hr (Wellbutrin-XL) 150 MG tablet Take 1 (one) tablet by mouth every morning Active clonazePAM (KlonoPIN) 0.5 MG tablet Take 1 (one) tablet by mouth once daily as needed 05/17/2024 Active escitalopram (Lexapro) 5 MG tablet Take 1 (one) tablet by mouth once daily 05/17/2024 Active hydrOXYzine HCl (Atarax) 25 MG tablet Take 1 (one) tablet by mouth 2 times daily as needed 05/17/2024 Active Active Problems Problem Noted Date Diagnosed Date SOB (shortness of breath) 04/24/2024 Overview (06/06/2024): Last Assessment & Plan: - unclear etiology, unlikely cardiac given neg cath - will check sleep study and PFTs Palpitations 12/22/2023 Dysphagia 10/14/2023 11/09/2023 Muscle spasm 08/23/2023 11/09/2023 Overview (11/09/2023): Last Assessment & Plan: - suspect back pain due to muscle spasm around SI joint and R paraspinal muscles. - tx with tizanidine and vicodin - encouraged mobility - f/u if no improvement in sx. Right upper quadrant abdominal pain 08/23/2023 11/09/2023 Overview (11/09/2023): Last Assessment & Plan: - continued abd pain, worse with food, primarily in RUQ region. - Abd CT neg for gallbladder disease but sx and exam consistent with gallbladder stones - will get US of RUQ to r/o gall stones - rec pt try holding farxiga and rosuvastatin for a few days to r/o medication effect causing her symptoms. - f/u if sx continue. Dyslipidemia 07/28/2023 11/09/2023 Uncontrolled type 2 diabetes mellitus 07/18/2023 11/09/2023 Stage 3 chronic kidney disease 02/28/2023 0 11/09/2023 Arthritis of carpometacarpal (CMC) joint of righ t thumb 02/10/2022 11/09/2023 CUCO (generalized anxiety disorder) 02/09/2022 11/09/2023 Overview (11/09/2023): Last Assessment & Plan: - stable - continue current medication per psych Last Assessment & Plan: - stable - continue current medication Moderate episode of recurrent major depressive d isorder 02/09/2022 11/09/2023 Overview (11/09/2023): Last Assessment & Plan: - stable - continue current medication Last Assessment & Plan: - stable - continue current medication Abdominal pain 04/13/2021 11/09/2023 Overview (11/09/2023): Last Assessment & Plan: - unclear etiology but given associated diarrhea will trial tx for IBS - start amitriptyline 25mg qhs - f/u with GI as planned. - if sx continue consider RUQ US Allergic rhinitis 04/13/2021 11/09/2023 Overview (11/09/2023): Last Assessment & Plan: - stable - continue current medication Coronary artery disease invo lving [place] coronary artery of [place] heart without angina pectoris 04/13/2021 11/09/2023 Overview (11/09/2023): Last Assessment & Plan: - stable - continue current medication Gastroesophageal reflux disease without esophagi tis 04/13/2021 11/09/2023 Overview (11/09/2023): Last Assessment & Plan: - stable - continue current medication Last Assessment & Plan: - stable - continue current medication Essential hypertension 04/13/2021 Overview (11/09/2023): Last Assessment & Plan: - stable - continue current medication Mixed hyperlipidemia 04/13/2021 11/09/2023 Overview (11/09/2023): Last Assessment & Plan: - stable - restart statin Establishing care with new doctor, encounter for 03/02/2019 Type 2 diabetes mellitus wit hout complication, without long-term current use of insulin 03/02/2019 Chest discomfort 03/02/2019 Nonspecific abnormal electrocardiogram (ECG) (EK G) 03/02/2019 Social History Tobacco Use Types Packs/Day Years Used Date Smoking Tobacco: Never Smokeless Tobacco: Never Tobacco Cessation:Counseling Given: Not Answered Alcohol Use Standard Drinks/Week Comments Not Currently 0 (1 standard drink = 0.6 oz pur e alcohol) Sex and Gender Information Value Date Recorded Sex Assigned at Female 11/24/2021 9:23 PM SURGICAL TECH Gender Identity Female 11/24/2021 9:23 PM SURGICAL TECH Sexual Orientation Straight 11/24/2021 9: 23 PM SURGICAL TECH Last Filed Vital Signs Vital Sign Reading Time Taken Comments Blood Pressure 122/72 06/06/2024 1:38 PM CDT Pulse 98 03/02/2019 2:34 PM CDT Temperature 36 C (96.8 F) 06/06/2024 1:38 PM CDT Respiratory Rate 16 03/02/2019 2:34 PM CDT Oxygen Saturation 96% 03/02/2019 2:34 PM CDT Inhaled Oxygen Concentration - - Weight 71.5 kg (157 lb 9.6 oz) 06/06/2024 1:38 P M CDT Height 160 cm (5' 3 ) 06/06/2024 1:38 PM CDT Body Mass Index 27.92 06/06/2024 1:38 PM CDT Plan of Treatment Upcoming Encounters Date Type Department Care Team (Late st Contact Info) Description 06/06/2025 11:30 AM CDT Office Visit [facility] - CUPOLA HOIST OPERATOR [address] [place] [id number] Elysia Gunderson Che, MD [address] [place] [address] Care Teams Geological Aide Relationship Specialty [place] [address] [place] [address] [address] [place] [address] PCP - General Family Medicine 12/07/23
--- OUTSIDE RECORDS SUMMARY | 2025-01-10 16:58 | XMS_ITS | Clinical Summary ---
Author Organization [facility] Address [address] [address] Care Team Providers Care Paper Machine Operator Name Role Phone Tano Fregoso MD Primary Care Provider + Source Comments [facility],non-owned Affiliates and Associated Physician Practices is amultiple site organization consisting of ambulatory clinics and hospital sitesin [place], [place], [place] and [place]. This disclosure is being madepursuant to the Care Everywhere program and may not contain all information available regarding this patient. Last updated 18.[facility] Allergies Active Allergy Reactions Criticality Noted Date [...] current medication Coronary artery disease invo lving [place] coronary artery of [place] heart without angina pectoris 04/13/2021 11/09/2023 Overview [...] Nonspecific abnormal electrocardiogram (ECG) (EK G) 03/02/2019 Family History Medical History Relation Name Comments CAD (Coronary Artery Disease) Brother CAD (Coronary Artery Disease) Father Cancer - Breast Maternal Grandmother CAD (Coronary Artery Disease) Mother Hyperlipidemia Mother Diabetes; unknown type Sister Relation Name Status Comments Brother Father Maternal Grandmother Mother Sister Social History Tobacco Use Types Packs/Day Years Used Date Smoking Tobacco: Never Smokeless Tobacco: Never Tobacco Cessation:Counseling Given: Not Answered Alcohol Use Standard Drinks/Week Comments Not Currently 0 (1 standard drink = 0.6 oz pur e alcohol) Sex and Gender Information Value Date Recorded Sex Assigned at Female 11/24/2021 9:23 PM QUENCHING MACHINE OPERATOR Gender Identity Female 11/24/2021 9:23 PM QUENCHING MACHINE OPERATOR Sexual Orientation Straight 11/24/2021 9: 23 PM QUENCHING MACHINE OPERATOR Last Filed Vital Signs Vital Sign Reading [...] Description 06/06/2025 11:30 AM CDT Office Visit [facility] - [employer]PER[employer] [address] [place] [address] Elysia Gunderson Che, MD [address] [place] [address] Health Maintenance Due Date Last Done Comments COLOGUARD (AGES 45-75) - COLON CA SCREENING [address] COLONOGRAPHY - COLON CA SCREENING 1954 FIT - COLON CA SCREENING 1954 FLEX SIG - COLON CA SCREENING 1954 MEDICARE AWV 12 MONTHS 1954 HEPATITIS C SCREENING 10/17/1972 DTAP/TDAP/TD VACCINES (1 - Tdap) 1973 PNEUMOCOCCAL VACCINE 50+ (1 of 2 - PCV) 1973 DIABETES-STATIN 1994 ZOSTER VACCINE (1 of 2) 2004 Respiratory Syncytial Virus (RSV) Vaccine Pt: or over 60 yrs (1 - Risk 60-74 years 1-dose series) 2014 DIABETES RETINOPATHY SCREENING 03/02/2019 DIABETES-FOOT EXAM WITH MONOFILAMENT 03/02/2019 COVID-19 VACCINE ( season) 2024 08/11/2023, 08/21/2022, 04/03/2022, Additional history exists INFLUENZA VACCINE (#1) 2024 , 08/02/2021, 08/16/2020, Additional history exists DIABETES-SERUM CREATININE 08/19/20242022, 08/19/2023, 02/02/2022, Additional history exists DIABETES-HGB A1C 10/24/2024 04/24/2024, 04/2023, 05/14/2022 DEPRESSION SCREENING 11/07/2024 DIABETES - URINE PROTEIN SCREENING 11/07/2024 MAMMOGRAM 05/16/2026 05/16/2024, 04/08, 06/29/2021 COLONOSCOPY - COLON CA SCREENING 06/21/2031 06/21/2021 Colorectal Cancer Screening 06/21/2031 BONE DENSITY TESTING Completed 04/20/2024, 05/31/20 HEPATITIS B VACCINE Aged Out No longe r eligible based on patient's age to complete this topic HIB VACCINE Aged Out No longer eligi ble based on patient's age to complete this topic HPV VACCINE Aged Out No longer eligi ble based on patient's age to complete this topic MENINGOCOCCAL (Group B) VACCINE Aged Out No longer eligible based on patient's age to complete this topic MENINGOCOCCAL VACCINE Aged Out No stiven tam eligible based on patient's age to complete this topic Care Teams Paper Machine Operator Relationship Specialty Start Date End Date Tano Fregoso MD [address] [phone] PCP - General Family Medicine 12/07/23
--- OUTSIDE RECORDS SUMMARY | 2025-01-10 16:58 | XMS_ITS | Continuity of Care Document ---
Author Organization [facility] Address [address] [place] [address] Phone Care Team Providers Care Manager Dental Name Role Phone Unavailable Unavailable Unavailable Results Test Name Date and Time Measure Units Reference Range Abnormal Flag Status Comments Panel Description: Misc [facility] Results Facilit y 9001 Unknown ALT 00:00:00 9 U/L N Unknown Panel Description: CPK Unknown CREATINE KINASE, TOTAL 00:00:00 57 U/L N Unknown Advance Directives Directive Yes / No Effective Date File Name No Information Encounters Encounter Description Practice Location Reason(s) For Visit Diagnoses Date Provider Providers Copied on Encounter [facility], [address], [place], [place], [address] , [place] tel: [phone] [facility] LONG-TERM USE MEDS NEC 8200 4 No Information [facility], [address], [place], [place], [address] , tel: [phone] [facility] ABN BLOOD CHEMISTRY NEC Sep-2 0-200 [address] [employer], [place], [place], [address], [place]. tel:[phone] [facility], [address], [place], [place], [address] , [place] tel: [phone] [facility] ACUTE PHARYNGITISBENIGN HYPERTENSIONMIXED HYPERLIPIDEMIA Sep-1 7-200 [address] [employer] [place], [place], [place], [address], [place]. tel:[phone] [facility], [address], [place], [place], [address] , [place] tel: [phone] [facility] ACUTE SINUSITIS NOS Apr-2 3-200 [address] [employer] [place], [place], [place], [address], [place]. tel:[phone] [employer], [address], [place], [place], [address] , [place] tel: [phone] [facility] SYMPT FEM CLIMACT STATE Mar-0 2-200 4 [employer]. [address], [place], [address], [place]. Family History Family Member Type Diagnosis Age At Onset No Information Payers Payer name Insurance type Covered republican ID Authoriza tion(s) No Information Social History [...]
--- OUTSIDE RECORDS SUMMARY | 2025-01-10 16:58 | XMS_ITS | Encounter Summary ---
Author Organization [facility] Address [address] [place] [address] Care Team Providers Care Oil Field Worker Name Role Phone Tano Fregoso MD Primary Care Provider Li Lee MD Unavailable Encounter Details Date Type Department Care Team (Late st Contact Info) Description 04/22/2021 Abstract [facility] [address] Sis Mchugh MA Social History Tobacco Use Types Packs/Day Years Used Date Smoking Tobacco: Never Smokeless Tobacco: Never Alcohol Use Standard Drinks/Week Comments Never 0 (1 standard drink = 0.6 oz pur e alcohol) AUDIT-C Answer Date Recorded Q1: How often do you have a drink containing alc ohol? Never 09/26/2020 Average Number of Drinks Not on file 020 Frequency of Binge Drinking Not on file 09/08 Comments Unknown Sex and Gender Information Value Date Recorded Sex Assigned at Not on file Legal Sex Female 4:34 PM SEWING MACHINE OPERATOR PAPER BAGS Gender Identity Not on file Sexual Orientation Not on file Occupation Industry Job Start Date Job End Date retired Not on file Not on file Not on file COVID-19 Exposure Response Date Recorded In the last month, have you been in contact with someone who was confirmed or suspected to have Coronavirus / COVID-19? No / Unsure 04/21/2021 2:44 PM CDT documented as of this encounter Plan of Treatment Not on file documented as of this encounter Procedures Procedure Name Priority Date/Time Associated Diagnosis Comments LIPID PANEL Routine 07/13/2023 LIPID PANEL Routine 11/29/2022 CK (CPK) Routine 11/29/2022 ALT/SGPT Routine 11/29/2022 COMPREHENSIVE METABOLIC PANEL Routine 05/14/2022 LIPID PANEL Routine 05/14/2022 HEMOGLOBIN, GLYCOSYLATED Routine 05/14/2022 THYROXINE, FREE (FT4) Routine 05/14/2022 THYROID STIM HORMONE TSH Routine 05/14/2022 CBC (OUTSIDE LAB) Routine 04/18/2021 COMPREHENSIVE METABOLIC PANEL Routine 04/18/2021 documented in this encounter Results * LIPID PANEL (07/13/2023) CHOLESTEROL 125 TRIGLYCERIDES 92 HDL 81 LDL (CALCULATED) 27 Narrative Resulting Agency Comment us Default History Genericprovider LABORATORY Edited Result - Final * CK (CPK) (11/29/2022) CPK 49 11/29/2022 us Default History Genericprovider LABORATORY Final Result * ALT/SGPT (11/29/2022) ALT 15 11/29/2022 us Default History Genericprovider LABORATORY Final Result * LIPID PANEL (11/29/2022) CHOLESTEROL 256 HDL 71 TRIGLYCERIDES 115 LDL (CALCULATED) 165 11/29/2022 Default History Genericprovider LABORATORY Final Result * HEMOGLOBIN, GLYCOSYLATED (05/14/2022) Pathologist [facility] [place] HGB A1C 7.5 % 05/14/2022 Doc [facility] Abstract LABORATORY Final Result * LIPID PANEL (05/14/2022) Pathologist [facility] [place] CHOLESTEROL 187 HDL 65 TRIGLYCERIDES 136 LDL (CALCULATED) 98 05/14/2022 [facility] Abstract LABORATORY Final Result * (ABNORMAL) COMPREHENSIVE METABOLIC PANEL (05/14/2022) Pathologist [facility] [place] SODIUM S/P/B 140 POTASSIUM S/P/B 4.4 CO2 21 CHLORIDE S/P/B 102 GLUCOSE 136 mg/dL CALCIUM S/P/B 10.0 BUN 25 CREATININE S/P/B 1.21(A) 0.5 - 1.0 EGFR NON-AFR. AMER. 49 <=90 ALKALINE PHOSPHATASE S/P/B 54 ALT 14 AST 19 BILIRUBIN TOTAL S/P/B 0.3 ALBUMIN S/P/B 4.5 3.5 - 5.0 TOTAL PROTEIN S/P/B 7.1 GLOBULIN 2.6 05/14/2022 [facility] Abstract LABORATORY Final Result * THYROXINE, FREE (FT4) (05/14/2022) Pathologist [facility] [place] FREE T4 1.39 05/14/2022 [facility] Abstract LABORATORY Final Result * THYROID STIM HORMONE, TSH (05/14/2022) Pathologist [facility] [place] TSH 2.770 05/14/2022 [facility] Abstract LABORATORY Final Result * COMPREHENSIVE METABOLIC PANEL (04/18/2021) SODIUM S/P/B 140 POTASSIUM S/P/B 4.3 CO2 24 CHLORIDE S/P/B 104 GLUCOSE 159 mg/dL CALCIUM S/P/B 10.1 BUN 18 CREATININE S/P/B 1.0 0.5 - 1.0 EGFR NON-AFR. AMER. 55 <=90 ALKALINE PHOSPHATASE S/P/B 50 ALT 17 AST 36 BILIRUBIN TOTAL S/P/B 0.4 ALBUMIN S/P/B 4.5 3.5 - 5.0 TOTAL PROTEIN S/P/B 8.0 04/18/2021 us Doc [facility] Abstract LABORATORY Final Result * CBC (OUTSIDE LAB) (04/18/2021) WBC 13.1 HGB 15.7 HCT 47.8 PLT 374 04/18/2021 us Doc [facility] Abstract LAB-OUTSIDE/ABSTRACTED Final Result documented in this encounter Visit Diagnoses Not on filedocumented in this encounter Care Teams Oil Field Worker Relationship Specialty Start Date End Date Tano Fregoso MD [address] [place] [address] PCP - General FAMILY PRACTICE 04/21/21 Li Lee MD [address] [place] [address] [place] [id number] ENDOCRINOLOGY 06/07/22 documented as of this encounter
--- OUTSIDE RECORDS SUMMARY | 2025-01-10 16:58 | XMS_ITS | Clinical Summary ---
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
--- OUTSIDE RECORDS SUMMARY | 2025-01-10 16:58 | XMS_ITS ---
Author Organization [facility] Address [address] [facility] [address] [facility] [address] [place] [address] Care Team Providers Care Lead Web Developer Name Role Phone Zenobia RUFFIN, Tano Primary Care Provider UnavailMiriam Sanz Unavailable [phone] REASON FOR VISIT Medication concerns Medications Medication SIG (Take, Route, Frequency, Duration) Notes Start Date End Date Status buPROPion HCl ER (XL) 150 MG 1 tablet in the morning Orally Once a day for 90 days decrease Active Social History Sex Assigned At : Social History Observation Description Sex Assigned At Female Encounters Encounter Location Date Provider Diagnosis [facility] [employer] [place] [id number] [facility] [address] [address] 08/07/2024 Miriam Ridley Major depressive disorder, recurrent severe without psychotic features F33.2 Assessments Encounter Date Diagnosis (ICD Code) Assessment Notes Treatment Notes Treatment Clinical Notes Section Notes 08/07/2024 Major depressive disorder, recurrent severe without psychotic features (ICD-10 - F33.2) Plan Of Treatment Medication Medication Name Sig Start Date Stop Date Notes buPROPion HCl ER (XL) 150 MG 1 tablet in the morning Orally Once a day for 90 days decrease Next Appt Details Provider Name:Miriam Ridley, 03/25/2025 01:30:00 PM, [address] [facility] [address], [facility] [address], [address], Progress Notes * ELDER PAREKH GDOB: 4 (68 yo F)Acc No.[id number]:08/07/2024 Patient: Poppy HAMPTON ELDER Contreras :1955 A ge:68 Y S ex:Female Address:[address] [place] [address], [place], [address] * Refills Refill buPROPion HCl ER (XL) Tablet Extended Release 24 Hour, 150 MG, Orally, 90, 1 tablet in the morning, Once a day, 90 days, Refills=0 * true * Date: Generated for Janette hackett/Leandra/Linitting on: 0 01/10/2025 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
--- OUTSIDE RECORDS SUMMARY | 2025-01-10 16:58 | XMS_ITS | Encounter Summary ---
Author Organization [facility] Address [address] [place] [address] Care Team Providers Care Housekeeper Child Care Name Role Phone Tano Fregoso MD Primary Care Provider + Encounter Details Date Type Department Care Team (Late st Contact Info) Description 01/10/2025 Telephone [facility] Cardiology [address] [place] [address] Patricia Peters MD [address] [place] [address] Social History Tobacco Use Types Packs/Day Years Used Date Smoking Tobacco: Never Passive Smoke Exposure: Past Smokeless Tobacco: Never AUDIT-C Answer Date Recorded Q1: How often do you have a drink containing alcohol? Never 12/18/2024 Q2: How many drinks containi ng alcohol do you have on a typical day when you are drinking? Patient does not drink Q3: How often do you have si x or more drinks on one occasion? Never 12/18/2024 PHQ-2 Answer Date Recorded PHQ-2 Total Score (If total score is 3 or more points, staff should administer the PHQ-9) 4 04/24/2024 PHQ-9 Answer Date Recorded PHQ-9 Total Score 19 04/24/2024 Personal Safety Answer Date Recorded Have you ever been in or are you currently in a harmful physical or emotional relationship or is someone making you feel afraid or unsafe? 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 Will await results from ED evaluation. RAGE SPECIALIST RN * Telephone Encounter - Maureen Cohen - 01/10/2025 4:03 PM CST Pt son in law Darnell called to report that pt is having dizzy spells, heart is racing, and pt just does not feel well. They are going to take pt to ED. Contact: RAGE SPECIALIST RN documented in this encounter Plan of Treatment Not on file documented as of this encounter Visit Diagnoses Not on filedocumented in this encounter Care Teams Housekeeper Child Care Relationship Specialty Start Date End Date Tano Fregoso MD [address] [place] [address] PCP - General Family Medicine 04/13/21 documented as of this encounter
--- OUTSIDE RECORDS SUMMARY | 2025-01-10 16:58 | XMS_ITS | Clinical Summary ---
Author Organization [facility] Address [address] [place] [address] Care Team Providers Care Egg And Spice Mixer Name Role Phone Tano Fregoso MD Primary Care Provider [phone] Li Lee MD Unavailable Allergies Active Allergy Reactions Criticality Noted Date Comments Diclofenac Unknown 04/13/2021 Dulaglutide Vomiting 09/26/2020 Medications rosuvastatin 40 MG tablet Take 1 tablet (40 mg total) by mouth daily. Active PARoxetine 20 MG tablet Take 1 tablet (20 mg total) by mouth daily. 0 Active pantoprazole EC 40 MG tablet Take 1 tablet (40 mg total) by mouth daily. 0 Active glimepiride 1 MG tablet Take 1 tablet (1 mg total) by mouth 2 (two) times daily. 0 Active ASPIRIN LOW DOSE 81 MG tablet Take 1 tablet (81 mg total) by mouth daily. 0 Active METOPROLOL SUCCINATE ER 25 MG 24 hr tablet TAKE 1 TABLET(25 MG) BY MOUTH DAILY 90 tablet 3 1 Active fluticasone propionate (FLONASE) 50 MCG/ACT nasal spray 1 spray by Nasal route daily. Active montelukast (SINGULAIR) 10 MG tablet Take 1 tablet (10 mg total) by mouth daily. 2 Active tobramycin-dexam ethasone (TOBRADEX) ophthalmic solution Place 1 drop into both eyes 2 (two) times daily as needed. 2 Active Dapagliflozin Propanediol (FARXIGA) 10 MG Tab Take 1 tablet (10 mg total) by mouth daily. Patient to start with half a tablet daily for 2 weeks then increase to whole tablet. 30 tablet 2 Active doxepin (SINEQUAN) 10 MG capsule Take 1 capsule (10 mg total) by mouth nightly at bedtime. 3 Active doxycycline hyclate (VIBRAMYCIN) 100 MG capsule Take 1 capsule (100 mg total) by mouth 2 (two) times daily. 3 Active REPATHA SURECLICK 140 MG/ML injection (PEN) Inject 1 mL (140 mg total) into the skin every 14 (fourteen) days. 3 Active metFORMIN (GLUCOPHAGE) 500 MG tablet Take 1 tablet (500 mg total) by mouth 2 (two) times daily. Active ezetimibe (ZETIA) 10 MG tablet Take 1 tablet (10 mg total) by mouth daily. 90 tablet 4 3 Active telmisartan (MICARDIS) 20 MG Tab Take 0.5 tablets (10 mg total) by mouth daily. 90 tablet 4 3 Active Active Problems Problem Noted Date Diagnosed Date Type 2 diabetes mellitus wit h hyperglycemia ([facility]) 06/07/2023 Overview (06/27/2023): Last Assessment & Plan: - uncontrolled - discussed taking metformin with meal - increase metformin to 1000mg daily - continue other meds - encouraged exercise - f/u in 3 mo with me or endo Arthritis of carpometacarpal (CMC) joint of righ t thumb 02/10/2022 CUCO (generalized anxiety disorder) 02/09/2022 Overview (06/27/2023): Last Assessment & Plan: - stable - continue current medication Moderate episode of recurren t major depressive disorder ([facility]) 02/09/2022 Overview (06/27/2023): Last Assessment & Plan: - stable - continue current medication Essential hypertension 04/13/2021 Overview (04/21/2021): Last Assessment & Plan: - stable - continue current medication Gastroesophageal reflux disease without esophagi tis 04/13/2021 Overview (06/27/2023): Last Assessment & Plan: - stable - continue current medication Hypertension associated with diabetes ([facility]) 04/13/2021 Overview (06/27/2023): Last Assessment & Plan: - stable - continue current medication Controlled type 2 diabetes m ellitus without complication, without long-term current use of insulin ([facility]) 04/13/2021 Overview (06/27/2023): Last Assessment & Plan: - stable - continue current medication - check labs H/O hypercalcemia 09/26/2020 NSTEMI (non-ST elevated myoc ardial infarction) ([facility]) 09/13/2020 Hyperlipidemia 01/25/2020 Type 2 diabetes mellitus wit hout complication, without long-term current use of insulin ([facility]) 03/02/2019 Resolved Problems Problem Noted Date Diagnosed Date Resolved Date Coronary artery disease invo lving [place] coronary artery of [place] heart with angina pectoris 01/06/2021 04/21/2021 Immunizations Name Administration Dates Next Due Dtap (Acel-Immune) 03/29/2015 Flucelvax 6 Months+ (Prefilled Syringe) 08/16/20 19 Fluzone High Dose - >Age 65 (Prefilled Syringe) 08/16/2020 Influenza (Generic) 08/02/2021,08/16/2020 Influenza Adult (Generic) 08/02/2021,08/16/2019 MODERNA COVID-19 (12+) MRNA, LNP-S, PF, 100 MCG/ 0.5 ML DOSE 08/02/2021,01/20/2021,12/18/2020 Pneumococcal (Prevnar 13) 08/13/2021 Pneumococcal (Prevnar 20) 06/07/2023 Tdap (Generic) 08/21/2022,03/29/2015 Family History Medical History Relation Comments Abdominal Aortic Aneurysm Father Heart Attack Father Valve Disease Father Heart Attack Mother Relation Status Comments Brother (Age 69) Father (Age 87) Maternal Grandfather Maternal Grandmother Mother (Age 87) Paternal Grandfather Paternal Grandmother (Age 93) Sister Alive Social History Tobacco Use Types Packs/Day Years [...] on file 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 Gender Identity Not on file Sexual Orientation Not on file Occupation Industry Job Start Date Job End Date retired Not on file Not on file Not on file Last Filed Vital Signs Vital Sign Reading Time Taken Comments Blood Pressure 106/68 06/27/2023 11:26 AM CDT Pulse 70 06/27/2023 11:26 AM CDT Temperature 36.6 C (97.9 F) 02/02/2022 5:49 PM CDT Respiratory Rate 16 02/02/2022 10:45 PM CDT Oxygen Saturation 93% 06/27/2023 11:26 AM CDT Inhaled Oxygen Concentration - - Weight 73 kg (161 lb) 06/27/2023 11:26 AM CDT Height 160 cm (5' 3 ) 06/27/2023 11:26 AM CDT Body Mass Index 28.52 06/27/2023 11:26 AM CDT Plan of Treatment Health Maintenance Due Date Last Done Comments ASCVD Statin 1955 Colorectal Cancer Screening Colonoscopy (10 Years) 1955 Kidney Health Evaluation 1955 Diabetes: Retinopathy Eye Exam 1972 Hepatitis C 1972 Mammogram Screening 1994 Zoster Vaccines (1 of 2) 2004 RSV Immunization or 60+ Years (1 - Risk 60-74 years 1-dose series) 2014 AAA SCREENING 2019 Annual Medicare Wellness Visit 2019 Hemoglobin A1C 11/14/2022 05/14/2022, 06/0 05/2021, 09/14/2020 COVID-19 Vaccine ( - season) 2024 08/02/2021, 01/20/2021, 12/18/2020 ASCVD LDL 07/13/2024 07/13/2023, 11/08, 05/14/2022 Lipid Panel 07/13/2024 07/13/2023, 11/08, 05/14/2022, Additional history exists Influenza Adult (#1) 2024 08/02/2021, 08/02/2021, 08/16/2020, Additional history exists DTaP, Tdap and Td Vaccines (4 - Td or Tdap) 08/21/2032 08/21/2022, 03/29/2015, 03/29/2015 Dexa Scan (General) Completed 05/31/2022 Pneumococcal Vaccine: 65+ Years Completed 06/07/2023, 08/13/2021 Meningococcal B Vaccine Aged Out No l onger eligible based on patient's age to complete this topic Meningococcal Vaccine Aged Out No stiven tam eligible based on patient's age to complete this topic RSV Immunizations Under 20 Months Aged Out No longer eligible based on patient's age to complete this topic Procedures Procedure Name Priority Date/Time Associated Diagnosis Comments LIPID PANEL Routine 07/13/2023 HEMOGLOBIN, GLYCOSYLATED Routine 05/14/2022 from Last 3 Months or Most Recently Relevant to Health Maintenance Results * LIPID PANEL (07/13/2023) CHOLESTEROL 125 TRIGLYCERIDES 92 HDL 81 LDL (CALCULATED) 27 Narrative Resulting Agency Comment us Default History Genericprovider LABORATORY Edited Result - Final * HEMOGLOBIN, GLYCOSYLATED (05/14/2022) HGB A1C 7.5 % 05/14/2022 us Doc [facility] Abstract LABORATORY Final Result from Last 3 Months or Most Recently Relevant to Health Maintenance Insurance [facility] Care Teams Egg And Spice Mixer Relationship Specialty Start Date End Date Tano Fregoso MD [address] [address] PCP - General FAMILY PRACTICE 04/21/21 Li Lee MD [facility] [place] [id number] ENDOCRINOLOGY 06/07/22
--- OUTSIDE RECORDS SUMMARY | 2025-01-10 16:58 | XMS_ITS | Patient Health Summary ---
Author Organization [facility] Address [address] [facility] [place] [address] Care Team Providers Care Recovery Coordinator Name Role Phone Tano Fregoso MD Primary Care Provider + Note from [facility],non-owned Affiliates and Associated Physician Practices is amultiple site organization consisting of ambulatory clinics and hospital sitesin [place], [place], [place] and [place]. This disclosure is being madepursuant to the Care Everywhere program and may not contain all information available regarding this patient. Last updated 18.[facility] Allergies * Diclofenac Epolamine(Unknown) * Dulaglutide(Diarrhea,Vomiting) -High Criticality * Exenatide(Other) -Low Criticality Medications * Be aware that medications may not be up to date on this document. Alwaysverify current medications with the patient. * telmisartan (MICARDIS) 20 MG tablet(Started 01/31/2019) Take 1 (one) tablet by mouth once daily * pantoprazole EC (PROTONIX) 40 MG tablet(Started 02/02/2019) Take 1 (one) tablet by mouth once daily * aspirin EC (Ecotrin) 81 MG tablet Take 1 (one) tablet by mouth once daily * Farxiga 10 MG tablet(Started 10/18/2023) Take 1 (one) tablet by mouth every morning * Repatha SureClick 140 MG/ML auto-injector(Started 07/28/2023) INJECT 1 ML UNDER THE SKIN EVERY 2 WEEKS IN THE MORNING * glimepiride (Amaryl) 2 MG tablet(Started 10/27/2023) Take 2 (two) tablets by mouth 2 times daily, before breakfast and supper * metoprolol succinate XL 24hr (Toprol XL) 25 MG tablet * amitriptyline (Elavil) 25 MG tablet(Started 12/01/2023) * buPROPion XL 24hr (Wellbutrin-XL) 150 MG tablet Take 1 (one) tablet by mouth every morning * clonazePAM (KlonoPIN) 0.5 MG tablet(Started 05/17/2024) Take 1 (one) tablet by mouth once daily as needed * escitalopram (Lexapro) 5 MG tablet(Started 05/17/2024) Take 1 (one) tablet by mouth once daily * hydrOXYzine HCl (Atarax) 25 MG tablet(Started 05/17/2024) Take 1 (one) tablet by mouth 2 times daily as needed Active Problems Problem Noted Date Diagnosed Date SOB (shortness of breath) 04/24/2024 Palpitations 12/22/2023 Dysphagia 10/14/2023 11/09/2023 Muscle spasm 08/23/2023 11/09/2023 Right upper quadrant abdominal pain 08/23/2023 11/09/2023 Dyslipidemia 07/28/2023 11/09/2023 Uncontrolled type 2 diabetes mellitus 07/18/2023 11/09/2023 Stage 3 chronic kidney disease 02/28/2023 0 11/09/2023 Arthritis of carpometacarpal (CMC) joint of righ t thumb 02/10/2022 11/09/2023 CUCO (generalized anxiety disorder) 02/09/2022 11/09/2023 Moderate episode of recurrent major depressive d isorder 02/09/2022 11/09/2023 Abdominal pain 04/13/2021 11/09/2023 Allergic rhinitis 04/13/2021 11/09/2023 Coronary artery disease invo lving nome coronary artery of nome heart without angina pectoris 04/13/2021 11/09/2023 Gastroesophageal reflux disease without esophagi tis 04/13/2021 11/09/2023 Essential hypertension 04/13/2021 Mixed hyperlipidemia 04/13/2021 11/09/2023 Establishing care with new doctor, encounter for [...] Sex Assigned at Female 11/24/2021 9:23 PM ELECTROLYTIC ETCHER Gender Identity Female 11/24/2021 9:23 PM ELECTROLYTIC ETCHER Sexual Orientation Straight 11/24/2021 9: 23 PM ELECTROLYTIC ETCHER Last Filed Vital Signs Vital Sign Reading [...] Mass Index 27.92 06/06/2024 1:38 PM CDT Procedures * DERMATOPATHOLOGY(Performed 06/03/2023) Performed for Dermatitis, unspecified * CARDIAC STRESS TEST ORDER(Performed 04/16/2019) * ECHOCARDIOGRAM 2D WITH DOPPLER(Performed 03/08/2019) Performed for Establishing care with new doctor, encounter for, Type 2 diabetes mellitus without complication, without long-term current use of insulin (HCC), Chest discomfort, Nonspecific abnormal electrocardiogram (ECG) (EKG) * ECHOCARDIOGRAM STRESS(Performed 03/07/2019) Performed for Establishing care with new doctor, encounter for, Type 2 diabetes mellitus without complication, without long-term current use of insulin (HCC), Chest discomfort, Nonspecific abnormal electrocardiogram (ECG) (EKG) * EKG 12-LEAD(Performed 03/02/2019) Performed for Establishing care with new doctor, encounter for * DERMATOPATHOLOGY(Performed 12/09/2016) Results * DERMATOPATHOLOGY (06/03/2023 12:00 AM CDT) Only the most recent of2 resultswithin the time period is included. Case Report Dermatopathology Report Case: [id number] Authorizing Provider: Pricila Victor MD Collected: 06/03/2023 12:00 AM Ordering Location: [facility] DermPath Lab Received: 06/06/2023 12:58 PM Pathologist: Sun Barba MD Specimen: Skin, left elbow 1:12 PM T DERMATOPATHOLOGY LABORATORY Final Diagnosis Specimen A. SKIN, left elbow: HEALING SKIN CHANGES (L90.5) DERMAL SCAR (L90.5) LICHEN SIMPLEX CHRONICUS (L28.0) (see microscopic description) 1:12 PM T DERMATOPATHOLOGY LABORATORY Clinical History Prurigo 1:12 PM CDT DERMATOPATHOLOGY LABORATORY Gross Description Specimen A: Received is one formalin filled container labeled with the patient's name and designated left elbow. The specimen consists of a shave biopsy measuring 7x6x3 mm. Jar 0. 1:12 PM CDT DERMATOPATHOLOGY LABORATORY Microscopic Description Specimen A. SKIN, left elbow: There is epidermal hyperplasia beneath which there are vascular proliferation, fibroblasts, and an edematous stroma. There are fibroblasts and collagen bundles oriented parallel to the skin surface with elongated blood vessels, some of which are oriented perpendicular to the skin surface. These changes extend to the margin of the specimen. Sections show associated acanthosis, hypergranulosis, and hyperkeratosis. The papillary dermis is fibrotic. 1:12 PM T DERMATOPATHOLOGY LABORATORY Disclaimer An external and internal positive and negative controls are appropriate for the histochemical, immunohistochemical and immunofluorescence stain(s) in this case (if any), except where stated explicitly. The performance characteristics of the stain(s) cited in this report were developed and its performance characteristic determined by the Dermatopathology Laboratory at [facility], directed by Dr. Luis E Negron. These tests need not be, and therefore are not, approved by the [place] Food and Drug Administration. The tests are used for clinical purposes. Billing Codes Specimen Charges Stain Charges 71740 1 1:12 PM CDT DERMATOPATHOLOGY LABORATORY Embedded Images 1:12 PM CDT DERMATOPATHOLOGY LABORATORY Pathology/Cytolog y TISSUE SPECIMEN FROM SKIN / Unknown 06/03/2023 06/06/2023 12:58 PM CDT Pricila Victor MD LAB - PATHOLOGY/CYTO LOGY ORDERABLES DERMATOPATHOLOGY LABORATORY [facility] Department of Dermatology [address], [address] [phone] * CARDIAC STRESS TEST ORDER (04/16/2019 6:41 PM CDT) Narrative 04/16/2019 6:41 PM CDT Ordered by an unspecified provider. Scanned Document CARDIAC SERVICES ORD ERABLES * ECHOCARDIOGRAM 2D WITH DOPPLER (03/08/2019 1:55 PM CDT) 03/08/2019 1:55 PM CDT Narrative [facility] CARDIAC SERVICES - 03/12/2019 6:34 PM CDT [facility] [place] [facility] [address] [id number] Transthoracic Echocardiogram 2D, M-mode, Doppler, and Color Doppler Patient: ELDER GALAN MR number: [id number] Height: 63 in Weight: 168.1 lb BSA: 1.8 m Study date: 08-Mar-2019 : 1955 Age: 63 years Gender: Female Race: 2 Diagnoses: R07.9 - Chest pain, unspecified Reading Physician: Edmundo Gonzalez MD Referring Physician: Edmundo Gonzalez MD CARDING MACHINE OPERATOR: Beatris Birch [facility] Cardiology Group: [facility] Summary: - Left ventricle: - Systolic function was normal. Ejection fraction was estimated in the range of 55 % to 65 %. - There were no regional wall motion abnormalities. - Wall thickness was normal. - Doppler parameters were consistent with abnormal left ventricular relaxation (grade 1 diastolic dysfunction). History: Prior history: Patient has no history of cardiovascular disease. Procedure: The study was performed in the [facility]. This was a routine study. The transthoracic approach was used. The study included complete 2D imaging, M-mode, complete spectral Doppler, and color Doppler. Systolic blood pressure was 120 mmHg. Diastolic blood pressure was 76 mmHg. Left ventricle: Size was normal. Systolic function was normal. Ejection fraction was estimated in the range of 55 % to 65 %. There were no regional wall motion abnormalities. Wall thickness was normal. Doppler: Doppler parameters were consistent with abnormal left ventricular relaxation (grade 1 diastolic dysfunction). Aortic valve: The valve was trileaflet. Leaflets exhibited normal thickness and normal cuspal separation. Doppler: Transaortic velocity was within the normal range. There was no stenosis. There was no regurgitation. Aorta: The root exhibited normal size. Mitral valve: Valve structure was normal. There was normal leaflet separation. Doppler: The transmitral velocity was within the normal range. There was no evidence for stenosis. There was no regurgitation. Left atrium: Size was normal. Right ventricle: The size was normal. Systolic function was normal. Wall thickness was normal. Tricuspid valve: Doppler: There was trivial regurgitation. Right atrium: Size was normal. Pericardium: There was no pericardial effusion. The pericardium was normal in appearance. System measurement tables 2D IVSd: 1 cm LVIDd: 3.7 cm LVIDs: 2.3 cm LVPWd: 0.9 cm CW PV Vmax: 0.8 m/s AV Vmax: 1.3 m/s AV maxP.8 mmHg PV maxP.8 mmHg RAP: 5 mmHg TR Vmax: 2.4 m/s TR maxP.4 mmHg MM LA Diam: 3.2 cm Ao Diam: 2.8 cm PW LVOT Vmax: 0.9 m/s E' Av.1 m/s E' Lat: 0.1 m/s E' Sept: 0.1 m/s E/E' Av.6 E/E' Lat: 7.4 E/E' Sept: 7.9 MV A Isaac: 0.8 m/s MV Dec Glynn: 1.7 m/s2 MV E Isaac: 0.6 m/s MV E/A Ratio: 0.7 RVSP: 27.4 mmHg Prepared and signed by Edmundo Gonzalez MD Signed 12-Mar-2019 18:34:09 Procedure Note Unknown, Provider, - 03/12/2019 [facility] [address] [address] [place] [address] Transthoracic Echocardiogram 2D, M-mode, Doppler, and Color Doppler Patient: ELDER GALAN MR number: [id number] Height: 63 in Weight: 168.1 lb BSA: 1.8 m Study date: 08-Mar-2019 : 1955 Age: 63 years Gender: Female Race: 2 Diagnoses: R07.9 - Chest pain, unspecified Reading Physician: Edmundo Gonzalez MD Referring Physician: Edmundo Gonzalez MD CARDING MACHINE OPERATOR: Beatris Birch [facility] Cardiology Group: [facility] Summary: - Left ventricle: - Systolic function was normal. Ejection fraction was estimated in the range of 55 % to 65 %. - There were no regional wall motion abnormalities. - Wall thickness was normal. - Doppler parameters were consistent with abnormal left ventricular relaxation (grade 1 diastolic dysfunction). History: Prior history: Patient has no history of cardiovascular disease. Procedure: The study was performed in the [facility]. This was a routine study. The transthoracic approach was used. The study included complete 2D imaging, M-mode, complete spectral Doppler, and color Doppler. Systolic blood pressure was 120 mmHg. Diastolic blood pressure was 76 mmHg. Left ventricle: Size was normal. Systolic function was normal. Ejection fraction was estimated in the range of 55 % to 65 %. There were no regional wall motion abnormalities. Wall thickness was normal. Doppler: Doppler parameters were consistent with abnormal left ventricular relaxation (grade 1 diastolic dysfunction). Aortic valve: The valve was trileaflet. Leaflets exhibited normal thickness and normal cuspal separation. Doppler: Transaortic velocity was within the normal range. There was no stenosis. There was no regurgitation. Aorta: The root exhibited normal size. Mitral valve: Valve structure was normal. There was normal leaflet separation. Doppler: The transmitral velocity was within the normal range. There was no evidence for stenosis. There was no regurgitation. Left atrium: Size was normal. Right ventricle: The size was normal. Systolic function was normal. Wall thickness was normal. Tricuspid valve: Doppler: There was trivial regurgitation. Right atrium: Size was normal. Pericardium: There was no pericardial effusion. The pericardium was normal in appearance. System measurement tables 2D IVSd: 1 cm LVIDd: 3.7 cm LVIDs: 2.3 cm LVPWd: 0.9 cm CW PV Vmax: 0.8 m/s AV Vmax: 1.3 m/s AV maxP.8 mmHg PV maxP.8 mmHg RAP: 5 mmHg TR Vmax: 2.4 m/s TR maxP.4 mmHg MM LA Diam: 3.2 cm Ao Diam: 2.8 cm PW LVOT Vmax: 0.9 m/s E' Av.1 m/s E' Lat: 0.1 m/s E' Sept: 0.1 m/s E/E' Av.6 E/E' Lat: 7.4 E/E' Sept: 7.9 MV A Isaac: 0.8 m/s MV Dec Glynn: 1.7 m/s2 MV E Isaac: 0.6 m/s MV E/A Ratio: 0.7 RVSP: 27.4 mmHg Prepared and signed by Edmundo Gonzalez MD Signed 12-Mar-2019 18:34:09 Edmundo Gonzalez MD ECHO ORDERABLES [facility] CARDIAC SERVICES * ECHOCARDIOGRAM STRESS (03/07/2019 3:00 PM CDT) 03/07/2019 3:00 PM CDT Narrative [facility] CARDIAC [facility] - 03/12/2019 6:23 PM CDT [facility] [place] [facility] [id number] [place] [address] Exercise Stress Echocardiography Name: ELDER GALAN MR #: [id number] Study date: 07-Mar-2019 : 1955 Age: 63 years Gender: Female Height: 63 in Weight: 168 lb BSA: 1.8 m Diagnosis: R07.9 - Chest pain, unspecified Reading Physician: Edmundo Gonzalez MD Referring Physician: Edmundo Gonzalez MD CARDING MACHINE OPERATOR: Beatris Birch [facility] Cardiology Group: [facility] CLINICAL QUESTION: Detection of coronary artery disease. HISTORY: The patient is a 63 year old female. REST ECG: Normal sinus rhythm. PROCEDURE: The procedure was explained to the patient and informed consent was obtained. Treadmill exercise testing was performed, using the Ki protocol. Stress and rest echocardiographic evaluation with 2D imaging and Definity intravenous contrast was performed from multiple acoustic windows for evaluation of ventricular function. Systolic blood pressure was 14 mmHg, at the start of the study. Diastolic blood pressure was 99 mmHg, at the start of the study. The heart rate was 84 bpm, at the start of the study. KI PROTOCOL: HR bpm SBP mmHg DBP mmHg Symptoms Baseline 130 145 99 none Stage 1 118 160 90 -- Stage 2 133 164 90 -- Stage 3 137 -- -- -- Recovery 1 92 150 92 -- STRESS SUMMARY: Duration of exercise was 7 min and 7 sec. The patient exercised to protocol stage 3. Maximal work rate was 10.1 METs. Maximal heart rate during stress was 142 bpm ( 91 % of maximal predicted heart rate). Target heart rate was achieved. Maximal systolic blood pressure during stress was 164 mmHg. The rate-pressure product for the peak heart rate and blood pressure was 06562. The stress test was terminated due to achievement of target heart rate. The stress ECG was negative for ischemia. There were no stress arrhythmias or conduction abnormalities. STRESS 2D ECHOCARDIOGRAPHIC RESULTS: BASELINE: Although no diagnostic regional wall motion abnormality was identified, this possibility cannot be completely excluded on the basis of this study. PEAK STRESS: There was no evidence for new left ventricular regional wall motion abnormalities. SUMMARY: - Stress results: Duration of exercise was 7 min and 7 sec. Maximal work rate was 10.1 METs. Target heart rate was achieved. - ECG conclusions: The stress ECG was negative for ischemia. - Baseline: Although no diagnostic regional wall motion abnormality was identified, this possibility cannot be completely excluded on the basis of this study. IMPRESSIONS: No new wall motion abnormalities. Limited study- definity used Prepared and signed by Edmundo Gonzalez MD Signed 12-Mar-2019 18:23:25 Procedure Note Unknown, ProviderMD - 03/12/2019 [facility] [place] [facility] [address] [place] [address] Exercise Stress Echocardiography Name: ELDER GALAN MR #: [id number] Study date: 07-Mar-2019 : 1955 Age: 63 years Gender: Female Height: 63 in Weight: 168 lb BSA: 1.8 m Diagnosis: R07.9 - Chest pain, unspecified Reading Physician: Edmundo Gonzalez MD Referring Physician: Edmundo Gonzalez MD CARDING MACHINE OPERATOR: Beatris Birch [facility] Cardiology Group: [facility] CLINICAL QUESTION: Detection of coronary artery disease. HISTORY: The patient is a 63 year old female. REST ECG: Normal sinus rhythm. PROCEDURE: The procedure was explained to the patient and informed consent was obtained. Treadmill exercise testing was performed, using the Ki protocol. Stress and rest echocardiographic evaluation with 2D imaging and Definity intravenous contrast was performed from multiple acoustic windows for evaluation of ventricular function. Systolic blood pressure was 14 mmHg, at the start of the study. Diastolic blood pressure was 99 mmHg, at the start of the study. The heart rate was 84 bpm, at the start of the study. KI PROTOCOL: HR bpm SBP mmHg DBP mmHg Symptoms Baseline 130 145 99 none Stage 1 118 160 90 -- Stage 2 133 164 90 -- Stage 3 137 -- -- -- Recovery 1 92 150 92 -- STRESS SUMMARY: Duration of exercise was 7 min and 7 sec. The patient exercised to protocol stage 3. Maximal work rate was 10.1 METs. Maximal heart rate during stress was 142 bpm ( 91 % of maximal predicted heart rate). Target heart rate was achieved. Maximal systolic blood pressure during stress was 164 mmHg. The rate-pressure product for the peak heart rate and blood pressure [place] [address]. The stress test was terminated due to achievement of target heart rate. The stress ECG was negative for ischemia. There were no stress arrhythmias or conduction abnormalities. STRESS 2D ECHOCARDIOGRAPHIC RESULTS: BASELINE: Although no diagnostic regional wall motion abnormality was identified, this possibility cannot be completely excluded on the basis of this study. PEAK STRESS: There was no evidence for new left ventricular regional wall motion abnormalities. SUMMARY: - Stress results: Duration of exercise was 7 min and 7 sec. Maximal work rate was 10.1 METs. Target heart rate was achieved. - ECG conclusions: The stress ECG was negative for ischemia. - Baseline: Although no diagnostic regional wall motion abnormality was identified, this possibility cannot be completely excluded on the basis of this study. IMPRESSIONS: No new wall motion abnormalities. Limited study- definity used Prepared and signed by Edmundo Gonzalez MD Signed 12-Mar-2019 18:23:25 Edmundo Gonzalez MD ECHO ORDERABLES [facility] CARDIAC [facility] * EKG 12-LEAD (03/02/2019) Narrative [facility] RESULT SCAN - 03/02/2019 ekg done in office. Edmundo Gonzalez MD ECG ORDERABLES [facility] RESULT SCAN Care Teams Recovery Coordinator Relationship Specialty Start Date End Date Tano Fregoso MD [address] [place] [id number] PCP - General Family Medicine 12/07/23
--- OUTSIDE RECORDS SUMMARY | 2025-01-10 16:59 | XMS_ITS | Patient Health Record ---
Author Organization [facility] As [employer] Address [address] [place] [address] Care Team Providers Care Stonecutter Assistant Name Role Phone Zenobia RUFFIN, Tano Primary Care Provider UnavailMiriam Sanz Unavailable [phone] Kristi Decker Unavailable [phone] Migration, Provider Unavailable Unavailable Allergies Allergen (clinical drug ingredient) Drug/Non Drug Allergy documented on EMR Reaction Allergy Type Onset Date Status Bydureon Unknown Drug Allergy 12/13/2023 Active dulaglutide Trulicity Unknown Drug Allergy 12/13/2023 Acti ve Reason For Referral No Information Medications Medication SIG (Take, Route, Frequency, Duration) Notes Start Date End Date Status Fenofibrate 160 MG Oral 03/16/2024 Unknown Glimepiride 2 MG Oral 03/16/2024 Un known Escitalopram Oxalate 5 MG 1 tablet Orall y Once a day for 90 days Active hydrOXYzine HCl 25 MG 1 tablet Oral twice a day for 30 days As needed Active buPROPion HCl ER (XL) 300 MG 1 tablet in the morning Oral Once a day for 90 days Active Pantoprazole Sodium 40 MG Oral 03/16/2024 Unknown metFORMIN HCl ER 500 MG Oral 03/16/2024 Unknown Farxiga 10 MG Oral 03/16/2024 Unkno wn Metoprolol Succinate ER 25 MG Oral 03/16/2024 Unknown Montelukast Sodium 10 MG Oral 03/16/2024 Unknown Telmisartan 20 mg Oral 03/16/2024 U nknown Repatha SureClick 140 mg/mL Subcutaneous 03/16/2024 Unknown Pioglitazone HCl 30 MG Oral 03/16/2024 Unknown clonazePAM 0.5 MG 1 tablet Oral Once a day As needed 01/07/2025 Active Jardiance 25 MG Oral 03/16/2024 Unk nown Immunizations Vaccine Route Administration Date Status Comme nts Moderna Covid-19 Vaccine 1st dose Unknown 12/18/2020 Ad ministered Moderna Covid-19 Vaccine 1st dose Unknown 01/20/2021 Ad ministered Moderna Covid-19 Vaccine 1st dose Unknown 08/02/2021 Ad ministered Moderna Covid-19 Vaccine 1st dose Unknown 04/03/2022 Ad ministered Social History Sex Assigned At : Social History Observation Description Sex Assigned At Female Problems Problem Type SNOMED Code ICD Code Onset Dates Problem Status W/U Status Risk Notes Problem Severe recurrent major depression without psychotic features (89518299) Major depressive disorder, recurrent severe without psychotic features (F33.2) Active confirmed Problem Generalized anxiety disorder (29503109) Generalized anxiety disorder (F41.1) Active confirmed Encounters Encounter Location Date Provider Diagnosis [facility] [place] [id number] [address] 01/19/2024 Provider Migration Generalized anxiety disorder F41.1 [facility] [place] [id number] [address] 02/15/2024 Miriam [place] Generalized anxiety disorder F41.1 ; Attention-deficit hyperactivity disorder, combined type F90.2 and Major depressive disorder, recurrent severe without psychotic features F33.2 [facility] [address] [address] 03/16/2024 Miriam [place] Generalized anxiety disorder F41.1 ; Major depressive disorder, recurrent severe without psychotic features F33.2 and Attention-deficit hyperactivity disorder, combined type F90.2 [facility] [address] [place] [address] 04/16/2024 Miriam [place] Major depressive disorder, recurrent severe without psychotic features F33.2 and Generalized anxiety disorder F41.1 [facility] [address] [place] [address] 05/17/2024 Miriam [place] Major depressive disorder, recurrent severe without psychotic features F33.2 and Generalized anxiety disorder F41.1 [facility] [address] [facility] [address] [place] [address] 06/18/2024 Miriamtevin Ridley Major depressive disorder, recurrent severe without psychotic features F33.2 and Generalized anxiety disorder F41.1 [facility] [address] [facility] [address] [place] [address] 09/25/2024 Miriam Ridley Major depressive disorder, recurrent severe without psychotic features F33.2 and Generalized anxiety disorder F41.1 [facility] [address] [facility] [address] [place] [address] 01/16/2024 Provider Migration [facility] [address] [facility] [address] [place] [address] 01/19/2024 Provider [facility] [place], [facility] [address] [facility] [address] [place] [address] 01/27/2024 Provider [facility] [address] [address] 02/12/2024 Provider [facility] [place] [facility] [address] [address] 03/24/2024 Provider [facility] [place] [facility] [address] [address] 03/25/2024 Provider [facility] [place] [facility] [address] [address] 08/07/2024 Miriam Ridley Major depressive disorder, recurrent severe without psychotic features F33.2 Assessments Encounter Date Diagnosis (ICD Code) Assessment Notes Treatment Notes Treatment Clinical Notes Section Notes 05/17/2024 Major depressive disorder, recurrent severe without psychotic features (ICD-10 - F33.2) 04/16/2024 Major depressive disorder, recurrent severe without psychotic features (ICD-10 - F33.2) Increase Wellbutrin to 300mg daily for mood. Patient educated on all medications including potential benefits, side effects, risks. Educated on proper dosing schedule and importance of compliance. 04/16/2024 Generalized anxiety disorder (ICD-10 - F41.1) 08/07/2024 Major depressive disorder, recurrent severe without psychotic features (ICD-10 - F33.2) 09/25/2024 Major depressive disorder, recurrent severe without psychotic features (ICD-10 - F33.2) 1. MDD increased depression secondary to relationship stress with daughter -Increase Wellbutrin to 300mg daily --previously had constipation with 300mg daily, monitor -cont escitalopram 5mg daily -cont counseling 2. CUCO overall stable -cont escitalopram 5mg daily -cont counseling -cont hydroxyzine PRN -encourage non-pharmaceuti carmen treatments including deep breathing, grounding exercises, physical activity, healthy diet. 05/17/2024 Generalized anxiety disorder (ICD-10 - F41.1) 06/18/2024 Major depressive disorder, recurrent severe without psychotic features (ICD-10 - F33.2) 01/19/2024 Generalized anxiety disorder (ICD-10 - F41.1) 02/15/2024 Major depressive disorder, recurrent severe without psychotic features (ICD-10 - F33.2) 02/15/2024 Generalized anxiety disorder (ICD-10 - F41.1) 02/15/2024 Attention-defici t hyperactivity disorder, combined type (ICD-10 - F90.2) 03/16/2024 Major depressive disorder, recurrent severe without psychotic features (ICD-10 - F33.2) 03/16/2024 Generalized anxiety disorder (ICD-10 - F41.1) 03/16/2024 Attention-defici t hyperactivity disorder, combined type (ICD-10 - F90.2) 06/18/2024 Generalized anxiety disorder (ICD-10 - F41.1) 09/25/2024 Generalized anxiety disorder (ICD-10 - F41.1) 1. MDD increased depression secondary to relationship stress with daughter -Increase Wellbutrin to 300mg daily --previously had constipation with 300mg daily, monitor -cont escitalopram 5mg daily -cont counseling 2. CUCO overall stable -cont escitalopram 5mg daily -cont counseling -cont hydroxyzine PRN -encourage non-pharmaceuti carmen treatments including deep breathing, grounding exercises, physical activity, healthy diet. 05/17/2024 Other Start Lexapro 5mg daily for mood, anxiety. She has been taking old 300mg of wellbutrin for past month, continue this dose. Patient educated on all medications including potential benefits, side effects, risks. Educated on proper dosing schedule and importance of compliance. [place] PDMP report checked and consistent with prescription history, no controlled substance prescriptions from other providers. 06/18/2024 Other Stable, continue current medications. Refills sent in. Patient educated on all medications including potential benefits, side effects, risks. Educated on proper dosing schedule and importance of compliance. 09/25/2024 Other Increase Wellbutrin to 150mg daily for depression --monitor constipation Patient educated on all medications including potential benefits, side effects, risks. Educated on proper dosing schedule and importance of compliance. Supportive therapy provided. 1. MDD increased depression secondary to relationship stress with daughter -Increase Wellbutrin to 300mg daily --previously had constipation with 300mg daily, monitor -cont escitalopram 5mg daily -cont counseling 2. CUCO overall stable -cont escitalopram 5mg daily -cont counseling -cont hydroxyzine PRN -encourage non-pharmaceuti carmen treatments including deep breathing, grounding exercises, physical activity, healthy diet. Plan Of Treatment Next Appt Details Provider Name:Miriam Dana Ridley, 03/25/2025 01:30:00 PM, [address], [place], [address], Insurance Providers Payer Name Payer Address Payer Phone Subscriber Number Group Number Insured Name Patient Relationship to Insured Coverage Start Date Coverage End Date [place] [address] [place] [address] [id number] IZABELLAELDER BANKS Self - patient is the insured [facility] [address] [place] [address] [id number] IZABELLAELDER BANKS Self - patient is the insured Medical (General) History Surgical History Surgery Date(Month/Year) Any surgical history 03/17/1987 Cardiac stent 09/14/2020 Procedure on heart ([id number]) 1 Other 10/16/2016
--- OUTSIDE RECORDS SUMMARY | 2025-01-10 16:59 | XMS_ITS ---
Author Organization [facility] [place] Address [address] [place] [address] Care Team Providers Care Production Sound Mixer Name Role Phone Zenobia RUFFIN, Tano Primary Care Provider UnavailMiriam Sanz Unavailable [phone] Allergies Allergen (clinical drug ingredient) Drug/Non Drug Allergy documented on EMR Reaction Allergy Type Onset Date Status Bydureon Unknown Drug Allergy 12/13/2023 Active dulaglutide Trulicity Unknown Drug Allergy 12/13/2023 Acti ve REASON FOR VISIT follow up Medications Medication SIG (Take, Route, Frequency, Duration) Notes Start Date End Date Status Metoprolol Succinate ER 25 MG Oral 03/16/2024 Unknown Montelukast Sodium 10 MG Oral 03/16/2024 Unknown Telmisartan 20 mg Oral 03/16/2024 U nknown Erythromycin 5 MG/GM Ophthalmic 03/16/2024 Unknown Repatha SureClick 140 mg/mL Subcutaneous 03/16/2024 Unknown Jardiance 25 MG Oral 03/16/2024 Unk nown Escitalopram Oxalate 5 MG 1 tablet Orally Once a day for 90 days Active Pioglitazone HCl 30 MG Oral 03/16/2024 Unknown Fenofibrate 160 MG Oral 03/16/2024 Unknown Glimepiride 2 MG Oral 03/16/2024 Un known Pantoprazole Sodium 40 MG Oral 03/16/2024 Unknown metFORMIN HCl ER 500 MG Oral 03/16/2024 Unknown Farxiga 10 MG Oral 03/16/2024 Unkno wn hydrOXYzine HCl 25 MG 1 tablet Oral twice a day for 30 days As needed Active buPROPion HCl ER (XL) 300 MG 1 tablet in the morning Oral Once a day for 90 days please cancel 150mg script Active clonazePAM 0.5 MG 1 tablet Oral Once a day As needed 05/17/2024 Active Social History Sex Assigned At : Social History Observation Description Sex Assigned At Female Encounters Encounter Location Date Provider Diagnosis [facility] [address] [facility] [address] [place] [address] 06/18/2024 Miriam Ridley Major depressive disorder, recurrent severe without psychotic features F33.2 and Generalized anxiety disorder F41.1 Assessments Encounter Date Diagnosis (ICD Code) Assessment Notes Treatment Notes Treatment Clinical Notes Section Notes 06/18/2024 Major depressive disorder, recurrent severe without psychotic features (ICD-10 - F33.2) 06/18/2024 Generalized anxiety disorder (ICD-10 - F41.1) 06/18/2024 Other Stable, continue current medications. Refills sent in. Patient educated on all medications including potential benefits, side effects, risks. Educated on proper dosing schedule and importance of compliance. Plan Of Treatment Medication Medication Name Sig Start Date Stop Date Notes Escitalopram Oxalate 5 MG 1 tablet Orall y Once a day for 90 days hydrOXYzine HCl 25 MG 1 tablet Oral twic e a day for 30 days buPROPion HCl ER (XL) 300 MG 1 tablet in the morning Oral Once a day for 90 days please cancel 150mg script Treatment Notes Assessment Notes Other Stable, continue current medications. Refills sent in. Patient educated on all medications including potential benefits, side effects, risks. Educated on proper dosing schedule and importance of compliance. Next Appt Details Follow Up: 3 Months, Reason: medication follow up Provider Name:Miriam Ridley, 03/25/2025 01:30:00 PM, [address], [facility] [address], [place], [address], Progress Notes * MY PAREKH GDOB: 4 (68 yo F)Acc No.[id number]:06/18/2024 Patient: Poppy MY HAMPTON Provider: Mallika RIDLEY PMHNP :1955 A ge:68 Y S ex:Female Date:06/18/2024 Address:[address] [place], [place] [address], [id number] Subjective: * Chief Complaints: * 1 . Follow up. * HPI: H istory of Presenting Problem: Anxiety R ates anxiety 3/10 with 10 being most severe. . D epression R ates depression 4/10 with 10 being most severe. . M ood lability?no hx anthony . P sychosis n o hx psychosis . S uicidal ideation d enies. Here for medication follow up. Escitalopram started last apt. Reports she feels better, anxiety is improving. Has been working through CBT and DBT workbooks. Daughter is still not speaking with her, although My is still watching the grandchildren. No panic attacks since last apt. Depression is overall stable, although identifies that she feels hurt by her daughter. No suicidal ideation. Denies side effects to lexapro since starting. Sleep is good, getting about 7-8 hours nightly. Energy is fair. Appetite is good. P ast Psychiatric Hospitalizations: Social hx: (Karla); Has one son and one daughter. 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 Medical hx: DM, history of [place]. Medication history: klonopin, Paxil, Wellbutrin, lexapro, Pristiq History of dementia with mother- at age 87. My has gotten checked for biomarkers for Alzheimer's-she does not have them. * ROS: G eneral / Constitutional: Patient denies c hange in appetite, lightheadedness, weakness, lightheadedness. G astrointestinal: Patient denies d iarrhea, nausea. N eurologic: Patient denies c onfusion, memory loss, tremor. ? P sychiatric: Patient denies s uicidal thoughts, auditory / visual hallucinations, delusions. C [facility] for details. * Medical History: P roblems: Attention deficit hyperactivity disorder, combined type, Generalized anxiety disorder, History of pancreatitis, Hyperlipidemia, Mild neurocognitive disorder, Severe recurrent major depression without psychotic features, Type 2 diabetes mellitus, ,. * Surgical History: A [place] surgical history 03/17/1987, Cardiac stent 09/14/2020, Procedure on heart ([id number]) 09/14/2021, Other 10/16/2016. * Family History: P aternal Aunt: Heart disease . F ather: Heart disease , Alcohol abuse , Alcoholism . P aternal Grandmother: Alcoholism . M aternal Grandfather: Family history of sudden cardiac . M aternal Grandmother: Malignant neoplastic disease . B rother: Heart disease . S ister: Alcohol abuse , Depressive disorder , Diabetes mellitus , Anxiety disorder . * Social History: M igrated Social History: M igrated Social History: Alcohol Intake: None 07/29/2023,Tobacco Years: Never smoker 03/29/2022. * Medications: T aking buPROPion HCl ER (XL) 300 MG Tablet Extended Release 24 Hour 1 tablet in the morning Oral Once a day , Notes to Pharmacist: please cancel 150mg script, Taking clonazePAM 0.5 MG Tablet 1 tablet Oral Once a day As needed, Taking hydrOXYzine HCl 25 MG Tablet 1 tablet Oral twice a day As needed, Taking Escitalopram Oxalate 5 MG Tablet 1 tablet Orally Once a day , Unknown Farxiga 10 MG Tablet Oral , Unknown metFORMIN HCl ER 500 MG Tablet Extended Release 24 Hour Oral , Unknown Pantoprazole Sodium 40 MG Tablet Delayed Release Oral , Unknown Jardiance 25 MG Tablet Oral , Unknown Glimepiride 2 MG Tablet Oral , Unknown Fenofibrate 160 MG Tablet Oral , Unknown Pioglitazone HCl 30 MG Tablet Oral , Unknown Repatha SureClick 140 mg/mL Solution Auto-injector Subcutaneous , Unknown Erythromycin 5 MG/GM Ointment Ophthalmic , Unknown Telmisartan 20 mg Tablet Oral , Unknown Montelukast Sodium 10 MG Tablet Oral , Unknown Metoprolol Succinate ER 25 MG Tablet Extended Release 24 Hour Oral * Allergies: B ydureon: Allergy - Onset Date 12/13/2023, Trulicity: Allergy - Onset Date 12/13/2023. Objective: * Vitals: * Examination: P sychiatry: Appearance: w ell-groomed. Abnormal body movements: n one. Affect / mood: a ppropriate. Attitude: c ooperative. Homicidal ideation: n one. Suicidal ideation: n one. Degree of awareness of surroundings: w ithin normal limits.? Delusions: n o. Hallucinations: n o. Insight: g ood. Judgement: g ood. Orientation: a wake, alert and oriented x 3. Perceptual disorders: n o perceptual disorder noted. Psychomotor activity: w ithin normal range. Speech / language: n ormal rate, volume, and articulation (RVR). Thought content: a ppropriate. Thought process: i ntact. Assessment: * Assessment: 1. M ajor depressive disorder, recurrent severe without psychotic features - F33.2 (Primary)? 2. G eneralized anxiety disorder - F41.1 Plan: * Treatment: 2. G eneralized anxiety disorder Refill hydrOXYzine HCl Tablet, 25 MG, 1 tablet, Oral, twice a day As needed, 30 days, 60 Tablet, Refills 2. 3. O thers Notes: Stable, continue current medications. Refills sent in. Patient educated on all medications including potential benefits, side effects, risks. Educated on proper dosing schedule and importance of compliance. * Procedure Codes: G 2211 VISIT COMPLEXITY INHERENT TO ONGOING CARE RELATED TO A PATIENT'S SINGLE, SERIOUS CONDITION OR A COMPLEX CONDITION * Follow Up: 3 Months (Reason: medication follow up) * Billing Information: * Visit Code: 30006 OFFICE OUTPATIENT VISIT 25 MINUTES DETAILED HISTORY AND EXAM/MODERATE MEDICAL DECISION MAKING. * Procedure Codes: G2211 VISIT COMPLEXITY INHERENT TO ONGOING CARE RELATED TO A PATIENT'S SINGLE, SERIOUS CONDITION OR A COMPLEX CONDITION. * Sign off status: Completed true * Provider: LUIS ARAUJO Date: 0 06/18/2024 Generated for Janette hackett/Leandra/Linitting on: 0 01/10/2025 04:58 PM INSTRUMENTATION AND CONTROL TECHNICIAN History and Physical Notes * HPI (History of Present Illness) Category Sub-Category Detail Notes Category Not es History of Presenting Problem Anxiety Rates anxiety 3/10 with 10 b eing most severe. Here for medication follow up. Escitalopram started last apt. Reports she feels better, anxiety is improving. Has been working through CBT and DBT workbooks. Daughter is still not speaking with her, although My is still watching the grandchildren. No panic attacks since last apt. Depression is overall stable, although identifies that she feels hurt by her daughter. No suicidal ideation. Denies side effects to lexapro since starting. Sleep is good, getting about 7-8 hours nightly. Energy is fair. Appetite is good. Depression Rates depression 4/1 0 with 10 being most severe. Suicidal ideation denies Psychosis no hx psychosis Mood lability no hx anthony Past Psychiatric Hospitalizations Social hx: (Karla); Has one son and one daughter. 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 Medical hx: DM, history of [place]. Medication history: klonopin, Paxil, Wellbutrin, lexapro, Pristiq History of dementia with mother- at age 87. My has gotten checked for biomarkers for Alzheimer's-she does not have them. Examination Category Sub-Category Detail Notes Category Not es Psychiatry Appearance: well-groomed Attitude: cooperative Psychomotor activity: within normal rang e Abnormal body movements: none Degree of awareness of surroundings: wit hin normal limits Orientation: awake, alert and barbara ented x 3 Affect / mood: appropriate Speech / language: normal rate, volume, and articulation (RVR) Insight: good Judgement: good Thought process: intact Thought content: appropriate Perceptual disorders: no perceptual diso rder noted Suicidal ideation: none Homicidal ideation: none Delusions: no Hallucinations: no
--- OUTSIDE RECORDS SUMMARY | 2025-01-10 16:59 | XMS_ITS | Encounter Summary ---
Author Organization [facility] Address [address] [place] [address] Care Team Providers Care Wooden Shade Hardware Installer Name Role Phone Froilan Anderson MD Primary Care Provider [phone] Tano Fregoso MD Primary Care Provider + Encounter Details Date Type Department Care Team (Late st Contact Info) Description 06/03/2023 Lab Requisition [facility] - DermPath Lab [address] [place] [address] Pricila Victor MD [address] [place] [address] [place] [address] Dermatitis, unspecified Social History Tobacco Use Types Packs/Day Years Used Date Smoking Tobacco: Never Smokeless Tobacco: Never Sex and Gender Information Value Date Recorded Sex Assigned at Female 11/24/2021 9:23 PM [place] Gender Identity Female 11/24/2021 9:23 PM [place] Sexual Orientation Straight 11/24/2021 9: 23 PM [place] documented as of this encounter Plan of Treatment Upcoming Encounters Date Type Department Care Team (Late st Contact Info) Description 06/06/2025 11:30 AM CDT Office Visit [facility] [address], [facility] [address] [place] [address] Elysia Gunderson Che, MD [address] [facility] [address] [place] [address] documented as of this encounter Procedures Procedure Name Priority Date/Time Associated Diagnosis Comments DERMATOPATHOLOGY Routine 06/03/2023 12:0 0 AM CDT Dermatitis, unspecified documented in this encounter Results * DERMATOPATHOLOGY (06/03/2023 12:00 AM CDT) Case Report Dermatopathology Report Case: [id number] Authorizing Provider: Pricila Victor MD Collected: 06/03/2023 12:00 AM Ordering Location: [facility] DermPath Lab Received: 06/06/2023 12:58 PM Pathologist: Sun Barba MD Specimen: Skin, left elbow 1:12 PM CDT DERMATOPATHOLOGY LABORATORY Final Diagnosis Specimen A. SKIN, left elbow: HEALING SKIN CHANGES (L90.5) DERMAL SCAR (L90.5) LICHEN SIMPLEX CHRONICUS (L28.0) (see microscopic description) 1:12 PM CDT DERMATOPATHOLOGY LABORATORY Clinical History Prurigo 1:12 PM [...] The papillary dermis is fibrotic. 1:12 PM CDT DERMATOPATHOLOGY LABORATORY Disclaimer An external and internal positive and negative controls are appropriate for the histochemical, immunohistochemical and immunofluorescence stain(s) in this case (if any), except where stated explicitly. The performance characteristics of the stain(s) cited in this report were developed and its performance characteristic determined by the Dermatopathology Laboratory at [facility], directed by Dr. Luis E Negron. These tests need not be, and therefore are not, approved by the [place] Food and Drug Administration. The tests are used for clinical purposes. Billing Codes Specimen Charges Stain Charges 67493 1 3 1:12 PM CDT DERMATOPATHOLOGY LABORATORY Embedded Images 3 1:12 PM CDT DERMATOPATHOLOGY LABORATORY Pathology/Cytolog y TISSUE SPECIMEN FROM SKIN / Unknown 06/03/2023 06/06/2023 12:58 PM CDT Pricila Victor MD LAB - PATHOLOGY/CYTO LOGY ORDERABLES DERMATOPATHOLOGY LABORATORY [facility] - Department of Dermatology [address] [phone] documented in this encounter Visit Diagnoses Diagnosis Dermatitis, unspecified documented in this encounter Care Teams Wooden Shade Hardware Installer Relationship Specialty Start Date End Date Froilan Anderson MD [address] [place] [address] [address] [place] [id number] PCP - General 08/27/14 12/06/23 Tano Fregoso MD [address] [place] [id number] PCP - General Family Medicine 12/07/23 documented as of this encounter
--- OUTSIDE RECORDS SUMMARY | 2025-01-10 16:59 | XMS_ITS ---
Author Organization [facility] Address [address] [facility] [address] [place] [address] Care Team Providers Care Pump Attendant Name Role Phone Zenobia RUFFIN, Tano Primary Care Provider UnavailMiriam Sanz Unavailable [phone] Allergies Allergen (clinical drug ingredient) Drug/Non Drug Allergy documented on EMR Reaction Allergy Type Onset Date Status Bydureon Unknown Drug Allergy 12/13/2023 Active dulaglutide Trulicity Unknown Drug Allergy 12/13/2023 Acti ve REASON FOR VISIT follow up Medications Medication SIG (Take, Route, Frequency, Duration) Notes Start Date End Date Status Pantoprazole Sodium 40 MG Oral 03/16/2024 Unknown metFORMIN HCl ER 500 MG Oral 03/16/2024 Unknown Fenofibrate 160 MG Oral 03/16/2024 Unknown Glimepiride 2 MG Oral 03/16/2024 Un known Jardiance 25 MG Oral 03/16/2024 Unk nown Farxiga 10 MG Oral 03/16/2024 Unkno wn Metoprolol Succinate ER 25 MG Oral 03/16/2024 Unknown clonazePAM 0.5 MG 1 tablet Oral Once a day As needed 05/17/2024 Active Escitalopram Oxalate 5 MG 1 tablet Orall y Once a day for 90 days Active hydrOXYzine HCl 25 MG 1 tablet Oral twice a day for 30 days As needed Active Montelukast Sodium 10 MG Oral 03/16/2024 Unknown Telmisartan 20 mg Oral 03/16/2024 U nknown Repatha SureClick 140 mg/mL Subcutaneous 03/16/2024 Unknown Pioglitazone HCl 30 MG Oral 03/16/2024 Unknown buPROPion HCl ER (XL) 300 MG 1 tablet in the morning Oral Once a day for 90 days Active Social History Sex Assigned At : Social History Observation Description Sex Assigned At Female Encounters Encounter Location Date Provider Diagnosis [facility] [address] [address] 09/25/2024 Miriam Ridley Major depressive disorder, recurrent severe without psychotic features F33.2 and Generalized anxiety disorder F41.1 Assessments Encounter Date Diagnosis (ICD Code) Assessment Notes Treatment Notes Treatment Clinical Notes Section Notes 09/25/2024 Major depressive disorder, recurrent severe without [...] breathing, grounding exercises, physical activity, healthy diet. 09/25/2024 Generalized anxiety disorder (ICD-10 - F41.1) 1. MDD increased depression secondary to relationship stress with daughter -Increase Wellbutrin to 300mg daily --previously had constipation with 300mg daily, monitor -cont escitalopram 5mg daily -cont counseling 2. CUCO overall stable -cont escitalopram 5mg daily -cont counseling -cont hydroxyzine PRN -encourage non-pharmaceuti carmen treatments including deep breathing, grounding exercises, physical activity, healthy diet. 09/25/2024 Other Increase Wellbutrin to 150mg daily [...] physical activity, healthy diet. Plan Of Treatment Medication Medication Name Sig Start Date Stop Date Notes Escitalopram Oxalate 5 MG 1 tablet Orall y Once a day for 90 days hydrOXYzine HCl 25 MG 1 tablet Oral twic e a day for 30 days buPROPion HCl ER (XL) 300 MG 1 tablet in the morning Oral Once a day for 90 days Treatment Notes Assessment Notes Other Increase Wellbutrin to 150mg daily for depression --monitor constipation Patient educated on all medications including potential benefits, side effects, risks. Educated on proper dosing schedule and importance of compliance. Supportive therapy provided. Next Appt Details Follow Up: 6 Months, Reason: medication follow up Provider Name:Miriam Ridley, 03/25/2025 01:30:00 PM, [address], [facility] [address], [place], [address], Progress Notes * MY PAREKH GDOB: 4 (68 yo F)Acc No.[id number]:09/25/2024 Patient: MY MUÑOZ Provider: Mallika RIDLEY PMHNP :1955 A ge:68 Y S ex:Female Date:09/25/2024 Address:[address] [place], [place] [id number] Pcp:Tano Fregoso MD Subjective: * Chief Complaints: * F ollow up * HPI: H istory of Presenting Problem: Anxiety R ates anxiety 3/10 with 10 being most severe. . D epression R ates depression 7/10 with 10 being most severe. . M ood lability?no hx anthony . P sychosis n o hx psychosis . S uicidal ideation d enies. P sychotherapy Dana lares, priscilla weekly. . Here for medication follow up. No medication changes made last apt. Started individual counseling, feels this has been helpful. Continues to have relationship stress with daughter. Although, daughter is planning to have a birthday green party for her in October. They are also planning to be together for and Catherine. Her sister got ill with diverticulitis, doing better now. Depression is terrible , feels sad over relationship with daughter. Has been tearful recently although had a conversation with son in law this morning which made her feel better. Sleep is fair, getting about 8 hours nightly. Energy is good. Appetite is fair. P ast Psychiatric Hospitalizations: Social hx: (Karla); Has one son and one daughter. 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 Medical hx: DM, history of [place]. Medication history: klonopin, Paxil, Wellbutrin, lexapro, Pristiq History of dementia with mother- at age 87. My has gotten checked for biomarkers for Alzheimer's-she does not have them. D epression Screening: CUCO-7 (2018 Edition) F eeling nervous, anxious, or on edge?Nearly every day, N ot being able to stop or control worrying S everal days, W orrying too much about different things S everal days, T rouble relaxing S everal days, B eing so restless that it is hard to sit still N ot at all, B ecoming easily annoyed or irritable M ore than half the days, F eeling afraid as if something awful might happen N ot at all. D epression screening: PHQ-9 L ittle interest or pleasure in doing things N early every day, F eeling down, depressed, or hopeless M ore than half the days, T rouble falling or staying asleep, or sleeping too much N ot at all, F eeling tired or having little energy M ore than half the days, P oor appetite or overeating N ot at all, F eeling bad about yourself or that you are a failure, or have let yourself or your family down S everal days, T rouble concentrating on things, such as reading the newspaper or watching television?Not at all, M oving or speaking so slowly that other people could have noticed; or the opposite, being so fidgety or restless that you have been moving around a lot more than usual N ot at all, T houghts that you would be better off or of hurting yourself in some way N ot at all, T otal Score 8 , I nterpretation M ild Depression. I ntervention D epression Screening Findings N egative. P sychotherapy with Med eval: Therapy with Med eval P sychotherapy with Medication management Y es, P sychotherapy done Time Spent Minute 1 6 Min, T ype of therapy done S upportive Therapy. Supportive therapy provided via active listening and encouragement regarding relationship with daughter. * ROS: G eneral / Constitutional: Patient denies c hange in appetite, lightheadedness, weakness, lightheadedness. G astrointestinal: Patient denies d iarrhea, nausea. N eurologic: Patient denies c onfusion, memory loss, tremor. ? P sychiatric: Patient denies s uicidal thoughts, auditory / visual hallucinations, delusions, delusions, psychosis, irritability. P atient complains of a nxiety, depressed mood. Isabela William [facility] for details. * Medical History: * Surgical History: A ny surgical history 03/17/1987Cardiac stent 09/14/2020Procedure on heart ([id number]) 09/14/2021Other 10/16/2016 * Hospitalization/Major Diagno stic Procedure: * Family History: P aternal Aunt: Heart [...] Years: Never smoker 03/29/2022. * Medications: T akingclonazePAM 0.5 MG Tablet 1 tablet Oral Once a day As neededhydrOXYzine HCl 25 MG Tablet 1 tablet Oral twice a day As neededEscitalopram Oxalate 5 MG Tablet 1 tablet Orally Once a day buPROPion HCl ER (XL) 150 MG Tablet Extended Release 24 Hour 1 tablet in the morning Orally Once a day , Notes to Pharmacist: decreaseTaking clonazePAM 0.5 MG Tablet 1 tablet Oral Once a day As neededTaking hydrOXYzine HCl 25 MG Tablet 1 tablet Oral twice a day As neededTaking Escitalopram Oxalate 5 MG Tablet 1 tablet Orally Once a day Taking buPROPion HCl ER (XL) 150 MG Tablet Extended Release 24 Hour 1 tablet in the morning Orally Once a day , Notes to Pharmacist: decreaseUnknownFarxiga 10 MG Tablet Oral metFORMIN HCl ER 500 MG Tablet Extended Release 24 Hour Oral Pantoprazole Sodium 40 MG Tablet Delayed Release Oral Jardiance 25 MG Tablet Oral Glimepiride 2 MG Tablet Oral Fenofibrate 160 MG Tablet Oral Pioglitazone HCl 30 MG Tablet Oral Repatha SureClick 140 mg/mL Solution Auto- injector Subcutaneous Telmisartan 20 mg Tablet Oral Montelukast Sodium 10 MG Tablet Oral Metoprolol Succinate ER 25 MG Tablet Extended Release 24 Hour Oral Medication List reviewed and reconciled with the patientNazario Ungerxiga 10 MG Tablet Oral Unknown metFORMIN HCl ER 500 MG Tablet Extended Release 24 Hour Oral Unknown Pantoprazole Sodium 40 MG Tablet Delayed Release Oral Unknown Jardiance 25 MG Tablet Oral Unknown Glimepiride 2 MG Tablet Oral Unknown Fenofibrate 160 MG Tablet Oral Unknown Pioglitazone HCl 30 MG Tablet Oral Unknown Repatha SureClick 140 mg/mL Solution Auto-injector Subcutaneous Unknown Telmisartan 20 mg Tablet Oral Unknown Montelukast Sodium 10 MG Tablet Oral Unknown Metoprolol Succinate ER 25 MG Tablet Extended Release 24 Hour Oral Medication List reviewed and reconciled with the patient * Allergies: B ydureon: Allergy - Onset Date 12/13/2023Trulicity: Allergy - Onset Date 12/13/2023no[Allergies Verified] Objective: * Vitals: * Examination: P sychiatry: [...] 2. G eneralized anxiety disorder - F41.1 1. MDD increased depression secondary to relationship stress with daughter -Increase Wellbutrin to 300mg daily --previously had constipation with 300mg daily, monitor -cont escitalopram 5mg daily -cont counseling 2. CUCO overall stable -cont escitalopram 5mg daily -cont counseling -cont hydroxyzine PRN -encourage non-pharmaceutical treatments including deep breathing, grounding exercises, physical activity, healthy diet. Plan: * Treatment: 2. G eneralized anxiety disorder Refill hydrOXYzine HCl Tablet, 25 MG, 1 tablet, Oral, twice a day As needed, 30 days, 60 Tablet, Refills 2. 3. O thers Notes: Increase Wellbutrin to 150mg daily for depression --monitor constipation Patient educated on all medications including potential benefits, side effects, risks. Educated on proper dosing schedule and importance of compliance. Supportive therapy provided. * Procedure Codes: 9 6127 BEHAV ASSMT W/SCORE & DOCD/STAND [id number] PSYCHOTHERAPY W/PATIENT W/E&M SRVCS 30 [id number] VISIT COMPLEXITY INHERENT TO ONGOING CARE RELATED TO A PATIENT'S SINGLE, SERIOUS CONDITION OR A COMPLEX [id number] CLIN DEPRESSION SCREEN DOC * Follow Up: 6 Months (Reason: medication follow up) * Billing Information: * Visit Code: 29212 OFFICE OUTPATIENT VISIT 25 MINUTES DETAILED HISTORY AND EXAM/MODERATE MEDICAL DECISION MAKING. * Procedure Codes: 93258 BEHAV ASSMT W/SCORE & DOCD/STAND INSTRUMENT. 99179 PSYCHOTHERAPY W/PATIENT W/E&M SRVCS 30 MIN. G2211 VISIT COMPLEXITY INHERENT TO ONGOING CARE RELATED TO A PATIENT'S SINGLE, SERIOUS CONDITION OR A COMPLEX CONDITION. G8431 CLIN DEPRESSION SCREEN DOC. * ACTORY TECHNICIAN Sign off status: Completed true * Provider: LUIS ARAUJO Date: 11/25/2023 Generated for Janette hackett/Leandra/Aryan on: 0 01/10/2025 04:58 PM REFRACTORY TECHNICIAN History and Physical Notes * HPI (History of Present Illness) Category Sub-Category Detail Notes Category Not es History of Presenting Problem Anxiety Rates anxiety 01/14 with 10 b eing most severe. Here for medication follow up. No medication changes made last apt. Started individual counseling, feels this has been helpful. Continues to have relationship stress with daughter. Although, daughter is planning to have a birthday green party for her in October. They are also planning to be together for [employer] and [place]. Her sister got ill with diverticulitis, doing better now. Depression is terrible , feels sad over relationship with daughter. Has been tearful recently although had a conversation with son in law this morning which made her feel better. Sleep is fair, getting about 8 hours nightly. Energy is good. Appetite is fair. Depression Rates depression 05/07 0 with 10 being most severe. Suicidal ideation denies Psychosis no hx psychosis Mood lability no hx anthony Psychotherapy priscilla López weekl y. Past Psychiatric Hospitalizations Social hx: (Karla); Has one son and one daughter. 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 Medical hx: DM, history of [place]. Medication history: klonopin, Paxil, Wellbutrin, lexapro, Pristiq History of dementia with mother- at age 87. My has gotten checked for biomarkers for Alzheimer's-she does not have them. Depression screening PHQ-9 Little inte rest or pleasure in doing things: Nearly every day Feeling down, depressed, or hopeless: Mo re than half the days Trouble falling or staying asleep, or sl eeping too much: Not at all Feeling tired or having little energy: M ore than half the days Poor appetite or overeating: Not at all Feeling bad about yourself o r that you are a failure, or have let yourself or your family down: Several days Trouble concentrating on thi ngs, such as reading the newspaper or watching television: Not at all Moving or speaking so slowly that other people could have noticed; or the opposite, being so fidgety or restless that you have been moving around a lot more than usual: Not at all Thoughts that you would be b nasrin off or of hurting yourself in some way: Not at all Total Score: 8 Interpretation: Mild Depression Intervention Depression Screening Findings: N egative Depression Screening CUCO-7 (2018 Edition) Feelin g nervous, anxious, or on edge: Nearly every day Not being able to stop or control worryi ng: Several days Worrying too much about different things : Several days Trouble relaxing: Several days Being so restless that it is hard to sit still: Not at all Becoming easily annoyed or irritable: Mo re than half the days Feeling afraid as if something awful valencia ht happen: Not at all Psychotherapy with Med eval Therapy with Med eval Psychotherapy with Medication management: Yes Supportive therapy provided via active listening and encouragement regarding relationship with daughter. Psychotherapy done Time Spent Minute: 16 Min Type of therapy done: Supportive Therapy Examination Category Sub-Category Detail Notes Category Not [...]
--- OUTSIDE RECORDS SUMMARY | 2025-01-10 16:59 | XMS_ITS | Clinical Summary ---
Author Organization [facility] Address [address] [place] [phone] Care Team Providers Care Compressed Gas Tester Name Role Phone Tano Fregoso MD Primary Care Provider + Allergies Active Allergy Reactions Criticality Noted Date Comments Exenatide Microspheres Other (See comments) Low 02/21/2023 Pancreatitis Diclofenac Unknown 04/13/2021 Dulaglutide Diarrhea,Vomiting High 09/26/2020 Treated in ER, stomach pain, diarrhea, pancreatis Exenatide Unknown Low 02/21/2023 Pancreatitis Medications aspirin 81 mg enteric coated tablet Take 1 tablet (81 mg total) by mouth daily 09/16/20 20 Active fluticasone propionate (FLONASE) 50 mcg/actuation nasal spray Administer 1 spray into each nostril daily Active flash glucose sensor (FreeStyle Genia 2 Sensor) kit Use and change every 14 days 1 kit 07/26/20 23 Active cholecalcifero l (D3-2000) 2000 unit capsule Take 1 capsule (2,000 Units total) by mouth daily 08/22/20 23 Active glimepiride (AMARYL) 2 mg tablet Take 0.5 tablets (1 mg total) by mouth 2 (two) times a day 10/27/20 23 Active buPROPion XL (WELLBUTRIN XL) 300 mg 24 hr tablet Take 1 tablet (300 mg total) by mouth every morning 03/16/20 24 Active escitalopram (LEXAPRO) 5 mg tablet Take 1 tablet (5 mg total) by mouth daily 05/17/20 24 Active hydrOXYzine (ATARAX) 25 mg tablet Take 1 tablet (25 mg total) by mouth 2 (two) times a day as needed 05/17/20 24 Active clonazePAM (KlonoPIN) 0.5 mg tablet Take 1 tablet (0.5 mg total) by mouth daily as needed 05/17/20 24 Active amitriptyline (ELAVIL) 25 mg tabletIndicati ons:Abdominal pain TAKE 1 TABLET(25 MG) BY MOUTH EVERY NIGHT 90 tablet 4 10/09/[address] (PROTONIX) 40 mg EC tabletIndicati ons:Gastroesop hageal reflux disease without esophagitis TAKE 1 TABLET(40 MG) BY MOUTH DAILY 100 tablet 10/29/20 24 Active telmisartan (MICARDIS) 20 mg tabletIndicati ons:Hypertensi on associated with diabetes (HCC) TAKE 1 TABLET(20 MG) BY MOUTH DAILY 90 tablet 1 11/05/20 24 Active traZODone (DESYREL) 50 mg tablet Take 2 tablets (100 mg total) by mouth nightly for 1 dose 1 tablet 11/08/19 25 Active Additional Information Patient not taking.Reported on 01/08/2025 semaglutide (OZEMPIC) 0.25 mg or 0.5 mg (2 mg/3 mL) pen injector injectionIndic ations:Type 2 diabetes mellitus with hyperglycemia, without long-term current use of insulin ([facility]) Inject 0.5 mg under the skin once a week 3 mL 12/18/19 25 025 Active Farxiga 10 mg tabletIndicati ons:Type 2 diabetes mellitus with hyperglycemia, without long-term current use of insulin ([facility]),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 Take 1 tablet (10 mg total) by mouth every morning 90 tablet 3 12/18/19 25 026 Active metoprolol XL (TOPROL-XL) 25 mg extended release tablet TAKE 1 TABLET(25 MG) BY MOUTH DAILY 90 tablet 1 12/28/19 25 Active traZODone (DESYREL) 50 mg tablet Take 1 tablet (50 mg total) by mouth nightly 1 tablet 12/31/19 25 025 Active Additional Information Patient not taking.Reported on 01/08/2025 Repatha SureClick 140 mg/mL pen injector ADMINISTER 1 ML(140 MG) UNDER THE SKIN EVERY 14 DAYS 2 mL 5 01/10/20 25 Active Farxiga 10 mg tablet Take 1 tablet (10 mg total) by mouth every morning 11/21/19 23 025 Discontinued(R eorder) amitriptyline (ELAVIL) 10 mg tabletIndicati ons:Irritable bowel syndrome with diarrhea Take 1 tablet (10 mg total) by mouth nightly 30 tablet 4 01/20/20 24 025 Discontinued(A lternate therapy) traZODone (DESYREL) 50 mg tablet Take 1 tablet (50 mg total) by mouth nightly for 1 dose 1 tablet 06/13/20 24 025 Discontinued(T herapy completed) Repatha SureClick 140 mg/mL pen injector Inject 1 mL (140 mg total) under the skin every 14 (fourteen) days 2 mL 5 08/20/20 24 025 Discontinued metoprolol XL (TOPROL-XL) 25 mg extended release tablet TAKE 1 TABLET(25 MG) BY MOUTH DAILY 90 tablet 1 09/28/20 24 025 Discontinued tirzepatide (Mounjaro) 7.5 mg/0.5 mL pen injectorIndica tions:Controll ed type 2 diabetes mellitus without complication, without long-term current use of insulin (HCC) Inject 7.5 mg under the skin once a week 2 mL 10/15/20 24 025 Discontinued(A lternate therapy) tirzepatide (Mounjaro) 5 mg/0.5 mL pen injectorIndica tions:Type 2 diabetes mellitus with hyperglycemia, without long-term current use of insulin (HCC) Inject 5 mg under the skin once a week 2 mL 3 11/14/19 25 025 Discontinued(A lternate therapy) Active Problems Problem Noted Date Diagnosed Date Irritable bowel syndrome with diarrhea 5 Nonsmoker 06/13/2024 TRACY (obstructive sleep apnea) 06/13/2024 Psychophysiological insomnia 06/13/2024 Delayed sleep phase syndrome 06/13/2024 SOB (shortness of breath) 04/24/2024 Assessment & Plan (04/24/2024 4:28 PM CDT): - unclear etiology, unlikely cardiac given neg cath - will check sleep study and PFTs Palpitations 12/22/2023 Gastroesophageal reflux disease 10/14/2023 Dysphagia 10/14/2023 Gum inflammation 09/27/2023 Muscle spasm 08/23/2023 Assessment & Plan (08/23/2023 11:46 AM CDT): - suspect back pain due to muscle spasm around SI joint and R paraspinal muscles. - tx with tizanidine and vicodin - encouraged mobility - f/u if no improvement in sx. RUQ abdominal pain 08/23/2023 Assessment & Plan (08/23/2023 11:47 AM CDT): - continued abd pain, worse with food, primarily in RUQ region. - Abd CT neg for gallbladder disease but sx and exam consistent with gallbladder stones - will get US of RUQ to r/o gall stones - rec pt try holding farxiga and rosuvastatin for a few days to r/o medication effect causing her symptoms. - f/u if sx continue. Dyslipidemia 07/28/2023 Type 2 diabetes mellitus with hyperglycemia 11/2022 Assessment & Plan (07/25/2024 2:16 PM CDT): - uncontrolled, worsening - encouraged exercise and diet changes - will start mounjaro 2.5mg weekly and titrate up - continue farxiga and glimepiride Assessment & Plan (08/23/2023 11:48 AM CDT): - stable - continue glimepiride but will hold farxiga briefly to see if sx related to med side effect Assessment & Plan (06/07/2023 3:18 PM CDT): - uncontrolled - discussed taking metformin with meal - increase metformin to 1000mg daily - continue other meds - encouraged exercise - f/u in 3 mo with me or endo Stage 3 chronic kidney disease 02/28/2023 Arthritis of carpometacarpal (CMC) joint of righ t thumb 02/10/2022 CUCO (generalized anxiety disorder) 02/09/2022 Assessment & Plan (04/24/2024 4:28 PM CDT): - stable - continue wellbutrin Assessment & Plan (08/12/2023 11:46 AM CDT): - stable - continue current medication per psych Assessment & Plan (06/07/2023 3:17 PM CDT): - stable - continue current medication Assessment & Plan (12/08/2022 4:04 PM PRODUCT/INDUSTRY CONSULTANT): - stable - continue current medication Assessment & Plan (02/09/2022 12:00 PM CDT): - uncontrolled - continue paxil - ref for counseling Moderate episode of recurrent major depressive d isorder 02/09/2022 Assessment & Plan (04/24/2024 4:28 PM CDT): - stable - continue wellbutrin Assessment & Plan (06/07/2023 3:17 PM CDT): - stable - continue current medication Assessment & Plan (02/09/2022 12:00 PM CDT): - uncontrolled - continue paxil - ref for counseling - if no improvement will add wellbutrin - f/u in 6 mo Controlled type 2 diabetes joanna yoon without complication, without long-term current use of insulin 04/13/2021 Assessment & Plan (04/24/2024 4:26 PM CDT): - uncontrolled - continue glimepiride and farxiga - add ozempic 0.25mg weekly, will titrate up slowly q3mo due to prior issues with trulicity - f/u in 3 mo Assessment & Plan (09/13/2023 3:16 PM PRODUCT/INDUSTRY CONSULTANT): - stable - continue current medications - restart faxiga Assessment & Plan (08/12/2023 11:47 AM CDT): - improving - increase glimepiride to 1mg bid and monitor glucose, if consistently above 120 then increase to 2mg bid - continue to hold metformin - f/u in 3 mo Assessment & Plan (04/08/2023 1:26 PM CDT): - stable - continue current medication - check labs Assessment & Plan (12/08/2022 4:03 PM PRODUCT/INDUSTRY CONSULTANT): - stable - continue current medication per endo - pt to get labs tomorrow Assessment & Plan (02/09/2022 11:59 AM CDT): - stable - continue current medication Assessment & Plan (08/13/2021 12:15 PM CDT): - stable - continue current medication Assessment & Plan (04/13/2021 2:35 PM CDT): - stable - continue current medication - check A1c - f/u with endocrine Hypertension associated with diabetes 04/13/2021 Assessment & Plan (07/25/2024 2:16 PM CDT): - stable - continue telmisartan, metoprolol Assessment & Plan (04/24/2024 4:27 PM CDT): - stable - continue telmisartan, metoprolol Assessment & Plan (09/13/2023 3:16 PM PRODUCT/INDUSTRY CONSULTANT): - stable - continue current medication Assessment & Plan (08/23/2023 11:48 AM CDT): - stable - continue current medication Assessment & Plan (08/12/2023 11:46 AM CDT): - stable - continue current medication Assessment & Plan (06/07/2023 3:17 PM CDT): - stable - continue current medication Assessment & Plan (04/08/2023 1:26 PM CDT): - stable - continue current medication Assessment & Plan (12/17/2022 3:19 PM PRODUCT/INDUSTRY CONSULTANT): - stable - continue current medication Assessment & Plan (12/08/2022 4:03 PM PRODUCT/INDUSTRY CONSULTANT): - stable - continue current medication Assessment & Plan (02/09/2022 11:59 AM CDT): - stable - continue current medication Assessment & Plan (11/25/2021 12:25 PM PRODUCT/INDUSTRY CONSULTANT): - stable - continue current medication Assessment & Plan (08/13/2021 12:15 PM CDT): - stable - continue current medication Assessment & Plan (04/13/2021 2:36 PM CDT): - stable - continue current medication Mixed hyperlipidemia 04/13/2021 Assessment & Plan (07/25/2024 2:16 PM CDT): - stable - continue repatha Assessment & Plan (04/24/2024 4:27 PM CDT): - stable - continue repatha Assessment & Plan (09/13/2023 3:17 PM PRODUCT/INDUSTRY CONSULTANT): - stable - restart statin Assessment & Plan (08/23/2023 11:49 AM CDT): - stable but will hold statin for a few days to ensure sx not related to statin myopathy Assessment & Plan (08/12/2023 11:46 AM CDT): - stable - continue current medication Assessment & Plan (06/07/2023 3:17 PM CDT): - stable - continue current medication Assessment & Plan (04/08/2023 1:26 PM CDT): - stable - continue current medication Assessment & Plan (12/08/2022 4:03 PM PRODUCT/INDUSTRY CONSULTANT): - stable - continue current medication Assessment & Plan (08/13/2021 12:15 PM CDT): - stable - continue current medication Assessment & Plan (04/13/2021 2:36 PM CDT): - stable - continue current medication 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 04/13/2021 Assessment & Plan (07/25/2024 2:16 PM CDT): - stable - continue asa, repatha Assessment & Plan (04/24/2024 4:27 PM CDT): - stable - continue asa, repatha Assessment & Plan (09/13/2023 3:16 PM PRODUCT/INDUSTRY CONSULTANT): - stable - continue current medication Assessment & Plan (06/07/2023 3:17 PM CDT): - stable - continue current medication Assessment & Plan (12/08/2022 4:03 PM PRODUCT/INDUSTRY CONSULTANT): - stable - continue current medication Assessment & Plan (02/09/2022 11:59 AM CDT): - stable - continue current medication Assessment & Plan (11/25/2021 12:26 PM PRODUCT/INDUSTRY CONSULTANT): - stable - continue current medication Assessment & Plan (08/13/2021 12:15 PM CDT): - stable - continue current medication Assessment & Plan (04/13/2021 2:36 PM CDT): - stable - continue current medication Gastroesophageal reflux disease without esophagi tis 04/13/2021 Assessment & Plan (04/24/2024 4:27 PM CDT): - stable - continue protonix Assessment & Plan (08/12/2023 11:46 AM CDT): - stable - continue current medication Assessment & Plan (12/08/2022 4:04 PM PRODUCT/INDUSTRY CONSULTANT): - stable - continue current medication Assessment & Plan (02/09/2022 12:00 PM CDT): - stable - continue current medication Assessment & Plan (11/25/2021 12:25 PM PRODUCT/INDUSTRY CONSULTANT): - stable - continue current medication Assessment & Plan (08/13/2021 12:15 PM CDT): - stable - continue current medication Assessment & Plan (04/20/2021 9:20 AM CDT): - uncontrolled - continue protonix and famotidine - if GERD sx continue will order EGD Assessment & Plan (04/13/2021 2:36 PM CDT): - stable - continue current medication - may use BID for short period if uncontrolled while feeling ill Allergic rhinitis 04/13/2021 Assessment & Plan (04/24/2024 4:28 PM CDT): - stable - continue flonase Assessment & Plan (08/13/2021 12:15 PM CDT): - stable - continue current medication Assessment & Plan (04/13/2021 2:37 PM CDT): - stable - continue current medication Abdominal pain 04/13/2021 Assessment & Plan (09/13/2023 3:19 PM PRODUCT/INDUSTRY CONSULTANT): - unclear etiology but given associated diarrhea will trial tx for IBS - start amitriptyline 25mg qhs - f/u with GI as planned. - if sx continue consider RUQ US Assessment & Plan (04/20/2021 9:21 AM CDT): - continue flagyl and cipro - continue zofran prn - will obtain records from [facility] to review imaging and labs - f/u Tuesday if sx not improved or sooner prn Assessment & Plan (04/13/2021 2:37 PM CDT): - unclear etiology - suspect diverticulitis - will tx with cipro and flagyl - if no improvement f/u in clinic for re-eval - check labs Sweating abnormality 04/13/2021 Assessment & Plan (04/13/2021 2:38 PM CDT): - unclear etiology - check CBC, TSH - if continues after feeling better will do further workup - f/u in 4 mo Breast mass, right 04/13/2021 Assessment & Plan (04/13/2021 2:38 PM CDT): - due for f/u MRI in June H/O hypercalcemia 09/26/2020 NSTEMI (non-ST elevated myocardial infarction) 1 11/13/2019 02/21/2023 Encounter for annual wellness exam in Medicare p atient 03/02/2019 Assessment & Plan (04/24/2024 4:28 PM CDT): - Reviewed with the patient BMI, blood pressure, diet, exercise, and encouraged healthy lifestyle choices. - Screened for high risk behaviors, diet and exercise habits, and symptoms of depression. - check screening labs - encouraged regular exercise and weight loss Assessment & Plan (12/08/2022 4:05 PM PRODUCT/INDUSTRY CONSULTANT): - Reviewed with the patient BMI, blood pressure, diet, exercise, and encouraged healthy lifestyle choices. - Screened for high risk behaviors, diet and exercise habits, and symptoms of depression. - reviewed screening labs - encouraged regular exercise and weight loss Resolved Problems Problem Noted Date Diagnosed Date Resolved Date Abdominal pain, right upper quadrant 10/14/2023 11/23/2024 Encounter for staple removal 04/08/2023 06/07/2023 Assessment & Plan (04/08/2023 1:20 PM CDT): - laceration healing well - hector removed without problems. - f/u prn Acute non-recurrent maxillary sinusitis 12/08/2022 06/07/2023 Assessment & Plan (12/08/2022 4:04 PM PRODUCT/INDUSTRY CONSULTANT): - augmentin - flonase - f/u prn Acute bilateral low back ronna n with right-sided sciatica 05/12/2022 06/07/2023 Assessment & Plan (05/12/2022 11:12 AM CDT): - uncontrolled - percocet for pain control - tizanidine - home PT - f/u prn Pain in lateral portion of left knee 02/09/2022 06/07/2023 Assessment & Plan (02/09/2022 12:01 PM CDT): - good stability in knee - suspect OA - check xray - home PT Right hand pain 11/25/2021 12/17/2022 Assessment & Plan (11/25/2021 12:27 PM PRODUCT/INDUSTRY CONSULTANT): - suspect bruising vs. OA - check xray to ensure no fx. Rib pain 11/25/2021 12/17/2022 Assessment & Plan (11/25/2021 12:26 PM PRODUCT/INDUSTRY CONSULTANT): - no palpable abnormality - pt reassured - will check xray to ensure normal rib without cause for pain Tinea corporis 08/13/2021 12/17/2022 Assessment & Plan (08/13/2021 12:16 PM CDT): - tx with clotrimazole topical bid - f/u if no improvement in 2-4 wks Anxiety 04/13/2021 12/17/2022 Assessment & Plan (08/13/2021 12:15 PM CDT): - stable - continue current medication Assessment & Plan (04/13/2021 2:37 PM CDT): - stable - continue current medication Chest discomfort 03/02/2019 06/07/2023 Nonspecific abnormal electro cardiogram (ECG) (EKG) 03/02/2019 06/07/2023 Encounters Date Type Department Care Team Description 01/10/2025 Telephone [facility] [address] [facility] [address] [place] [phone] Patricia Peters MD 01/08/2025 1:00 PM PRODUCT/INDUSTRY CONSULTANT Office Visit [facility] [address] [facility] [address] [place] [phone] Ewa Cook NP Coronary artery disease involving suquam[place] coronary artery of suquamish heart without angina pectoris (Primary Dx); Hyperlipidemia associated with type 2 diabetes mellitus (HCC); Lipid screening 01/08/2025 Telephone [facility] [address] [place] [address] Hong Beck, [facility] 01/03/2025 7:57 PM PRODUCT/INDUSTRY CONSULTANT - 01/03/2025 11:59 PM PRODUCT/INDUSTRY CONSULTANT Hospital Encounter [facility] [address] [place] [address] TRACY (obstructive sleep apnea) Discharge Disposition: Discharge to home or self care 12/21/2024 Telephone [facility] Obstetrical Gynecology [facility] [facility] [address] [place] [phone] Annette Crawley LPN 12/20/2024 9:13 AM PRODUCT/INDUSTRY CONSULTANT - 12/20/2024 11:59 PM PRODUCT/INDUSTRY CONSULTANT Hospital Encounter [facility] [address] [place] [id number] Heterogeneously dense tissue of both breasts on mammography; Family history of breast cancer; Other signs and symptoms in breast Discharge Disposition: Discharge to home or self care 12/18/2024 10:45 AM PRODUCT/INDUSTRY CONSULTANT Office Visit [facility] [address] [facility] [address] [place] [phone] Tano Fregoso MD Type 2 diabetes mellitus with hyperglycemia, without long-term current use of insulin (HCC) (Primary Dx); Hypertension associated with diabetes (HCC); Mixed hyperlipidemia; 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; Gastroesophageal reflux disease without esophagitis; CUCO (generalized anxiety disorder); Moderate episode of recurrent major depressive disorder (HCC) 11/14/2024 Telephone [facility] [address] [place] [address] [place] [phone] Tano Fregoso MD Med Refill 11/09/2024 Telephone [facility] [address] [place] [address] [place] [phone] Tano Fregoso MD Medical Question/Miscellaneous 11/09/2024 Telephone [facility] [address] [place], [place] [phone] Brannon Mccloud MD sleep study results 11/08/2024 Orders Only [facility] Pulmonology [address] [facility] [address] [place] [phone] Brannon Mccloud MD TRACY (obstructive sleep apnea) (Primary Dx) 11/04/2024 8:00 PM PRODUCT/INDUSTRY CONSULTANT - 11/04/2024 11:59 PM PRODUCT/INDUSTRY CONSULTANT Hospital Encounter [facility] [address] [place] [address] SOB (shortness of breath); TRACY (obstructive sleep apnea); Psychophysiological insomnia; Delayed sleep phase syndrome; Nonsmoker; Non-seasonal allergic rhinitis due to pollen Discharge Disposition: Discharge to home or self care 10/26/2024 10:00 AM PRODUCT/INDUSTRY CONSULTANT Office Visit [facility] at [address] [phone] Gely Witt NP Fall, initial encounter (Primary Dx); Acute ear pain, right 10/26/2024 Nurse Triage [facility] [address] [place] [phone] Jody Callawayerine Tremor (Primary Dx) 10/25/2024 Telephone [facility] [address] [place], [place] [address], [place] [phone] Tano Fregoso MD 10/25/2024 Nurse Triage [facility] [address] [place] [address] [address] [place] [phone] Tano Fregoso MD 10/15/2024 Telephone [facility] [address] [place] [address] [address] [place] [phone] Tano Fregoso MD Medical Question/Miscellaneous from Last 3 Months Immunizations Immunization Administration Dates Next Due COVID-19 mRNA (HouseCall) 0.3 m L (30 mcg) vaccine (12 years and up) 08/11/2023 DTaP 03/29/2015 Influenza, Quadrivalent, Isis l Culture-based MDCK, Preservative Free, Antibiotic Free, Intramuscular 08/16/2019 Influenza, Quadrivalent, Hig h Dose, Preservative Free, Intrr 09/13/2023,08/02/2021,08/16/2020 Influenza, Trivalent, Cell Culture-based MDCK, Preservative Free, Antibiotic Free, Intramuscular 08/16/2019 Influenza, Trivalent, High D ose, Split, Preservative Free, Intramuscular 07/25/2024 Influenza, Unspecified 12/17/2022(Deferr ed: Patient Refused),08/07/2022(Deferred: Patient Refused),08/02/2021,08/16/2020, 019 Moderna SARS-CoV-2 Monovalen t Vaccination (12+ YRS) 08/02/2021,01/20/2021,12/18/2020 Pneumococcal Conjugate PCV 13 08/13/2021 Pneumococcal Conjugate Pcv20 06/07/2023 Tdap 08/21/2022,03/29/2015 Surgical History Surgery Date Site/Laterality Comments CARDIAC STENT PLACEMENT BUNIONECTOMY SECTION FRACTURE SURGERY 2016 SHUNT EXTERNALIZATION 09-13-2020 CARDIAC CATHETERIZATION BLEPHAROPLASTY 12/09/2023 Bilateral Medical History Medical History Date Comments Diabetes mellitus (HCC) Hypertension Hyperlipidemia Heart disease Heart attack (HCC) 09/13/2020 Depression GERD (gastroesophageal reflux disease) 2012 Anxiety 1987 Arthritis 2021 Coronary artery disease CAD (coronary artery disease) Motion sickness Type 2 diabetes mellitus (HCC) TRACY (obstructive sleep apnea) 06/13/2024 Family History Medical History Relation Name Comments Allergy (severe) Brother aaron mayorga Breast cancer Cousin 1 Breast cancer Cousin 2 Heart disease Father Aaron Mayorga Breast cancer Maternal Grandmother Arthritis Mother Miesha Mayorga Heart disease Mother Miesha Mayorga Memory loss Mother Miesha Mayorga Breast cancer Mother's Sister 1 Depression Mother's Sister 2 Shellie Digna Depression Mother's Sister 3 Alison Digna Rashes / Skin problems Sister Khushi Mayorga Ovarian cancer Neg Hx Uterine cancer Neg Hx Relation Name Status Comments Brother aaron mayorga Cousin 1 Alive Cousin 2 Alive Father Aaron Mayorga (Age 87) Maternal Grandmother Mother Miesha Mayorga (Age 87) Mother's Sister 1 Mother's Sister 2 Shellie Digna Mother's Sister 3 Alison Digna Sister Khushi Mayorga Social History Tobacco Use Types Packs/Day Years Used Date Smoking Tobacco: Never Passive Smoke Exposure: Past Smokeless Tobacco: Never Tobacco Cessation:Counseling Given: Not Answered AUDIT-C Answer Date Recorded Q1: How often [...] on file Legal Sex Female 4:16 AM PRODUCT/INDUSTRY CONSULTANT Gender Identity Not on file Sexual Orientation Not on file Obstetrics History Para Term AB IAB SAB Ectopic Multiple Livin g Live Births 2 2 2 2 2 Date Outcome GA Total Labor Labor/2nd/3rd Weight Sex Type Anes PTL Rika A1 A5 Name Clin Term Vag-S pont Living Term CS-LT ranv Living Last Filed Vital Signs Vital Sign Reading Time Taken Comments Blood Pressure 108/70 01/08/2025 1:07 PM PRODUCT/INDUSTRY CONSULTANT Pulse 86 01/08/2025 1:07 PM PRODUCT/INDUSTRY CONSULTANT Temperature 36.2 C (97.1 F) 12/18/2024 10:52 AM PRODUCT/INDUSTRY CONSULTANT Respiratory Rate 16 12/18/2024 10:52 AM PRODUCT/INDUSTRY CONSULTANT Oxygen Saturation 95% 01/08/2025 1:07 PM PRODUCT/INDUSTRY CONSULTANT Inhaled Oxygen Concentration - - Weight 71.2 kg (157 lb) 01/08/2025 1:07 PM PRODUCT/INDUSTRY CONSULTANT Height 160 cm (5' 3 ) 01/08/2025 1:07 PM PRODUCT/INDUSTRY CONSULTANT Body Mass Index 27.81 01/08/2025 1:07 PM PRODUCT/INDUSTRY CONSULTANT Plan of Treatment Health Maintenance Due Date Last Done Comments Foot Exam 1955 Hepatitis B Screening 1972 Zoster Vaccine (1 of 2) 2004 Covid-19 Vaccine (2023- 5 season) 2024 08/11/2023, 08/21/2022, 04/03/2022, Additional history exists Depression Screening 04/24/2025 04/24/2024, 04/24/2024, 12/08/2022, Additional history exists Fall Risk Assessment 04/24/2025 04/24/2024, 04/10/2024, 12/22/2023, Additional history exists Well Visit 65+ 04/24/2025 04/24/2024, 02/11/2022, 08/13/2021 Breast Cancer Screening-Mammogram 05/16/2025 05/16/2024, 04/29/2023, 06/29/2021 Hemoglobin A1C 06/17/2025 12/18/2024, 07/08, 04/24/2024, Additional history exists Albumin Creatinine Ratio, Urine 07/25/2025 07/25/2024, 05/31/2023, 04/16/2021 eGFR 11/10/2025 11/10/2024, 07/08, 04/10/2024, Additional history exists Lipid Panel 01/08/2026 01/08/2025, 07/08, 07/13/2023, Additional history exists Osteoporosis Screening-Bone Density Scan 04/20/2026 04/20/2024, 05/31/2022 Colon Cancer Screening-Colonoscopy 06/21/20262020 Dilated Eye Exam 09/18/2026 09/18/2024, , 04/29/2022 DTaP/Tdap/Td Vaccine (4 - Td or Tdap) 08/21/2032 08/21/2022, 03/29/2015, 03/29/2015 Hepatitis C Screening Completed 04/13/2021 Pneumococcal vaccine 65+ Completed 06/07/2023, 05/2021 Influenza Vaccine Completed 07/25/2024, , 08/02/2021, Additional history exists Medical Devices Implanted Type Area Senior Solutions Architect Device Identifier Shelf Expiration Date Model / Serial / Lot Stent- 0 Implanted:Qty: 1 on 09/14/2020 Stent Coronary Keynoir Synergy / / [id number] [place] Device Closure Vascade Od5 Fr Femoral Artery [id number] - [id number] Implanted:Qty: 1 on 04/10/2024 by Patricia Peters MD at [facility] [id number] / / Procedures Procedure Name Priority Date/Time Associated Diagnosis Comments POCT LIPID PANEL Routine 01/08/2025 1:46 PM PRODUCT/INDUSTRY CONSULTANT Lipid screening PSG (SIMPLE) Routine 01/03/2025 7:57 PM PRODUCT/INDUSTRY CONSULTANT TRACY (obstructive sleep apnea) MRI BREAST BILATERAL W WO CONTRAST Schedule Routine, Read Routine (OP Routine) 12/20/2024 10:41 AM PRODUCT/INDUSTRY CONSULTANT Heterogeneously dense tissue of both breasts on mammography Family history of breast cancer Other signs and symptoms in breast POCT HEMOGLOBIN A1C Routine 12/18/2024 11:13 AM PRODUCT/INDUSTRY CONSULTANT Type 2 diabetes mellitus with hyperglycemia, without long-term current use of insulin (HCC) THYROID FUNCTION CASCADE Routine 11/10/2024 12:00 PM PRODUCT/INDUSTRY CONSULTANT Tremor ERYTHROCYTE SEDIMENTATION RATE Routine 11/10/2024 12:00 PM PRODUCT/INDUSTRY CONSULTANT Tremor CRP (ACUTE PHASE) Routine 11/10/2024 12:00 PM PRODUCT/INDUSTRY CONSULTANT Tremor CBC WITH AUTO DIFFERENTIAL Routine 11/10/2024 12:00 PM PRODUCT/INDUSTRY CONSULTANT Tremor COMPREHENSIVE METABOLIC PANEL Routine 11/10/2024 12:00 PM PRODUCT/INDUSTRY CONSULTANT Tremor PSG (SIMPLE) Routine 11/04/2024 8:03 PM PRODUCT/INDUSTRY CONSULTANT SOB (shortness of breath) TRACY (obstructive sleep apnea) Psychophysiological insomnia Delayed sleep phase syndrome Nonsmoker Non-seasonal allergic rhinitis due to pollen DIABETIC EYE EXAM Routine 09/18/2024 ALBUMIN CREATININE RATIO, URINE Routine 07/25/2024 2:28 PM CDT Type 2 diabetes mellitus with hyperglycemia, without long-term current use of insulin (HCC) DIAGNOSTIC MAMMOGRAM BILATERAL W REN Schedule Routine, Read Routine (OP Routine) 05/16/2024 1:13 PM CDT Breast pain, right Encounter for screening mammogram for malignant neoplasm of breast DEXA AXIAL SKELETON BONE DENSITY 1 OR MORE SITES Schedule Routine, Read Routine (OP Routine) 04/20/2024 3:45 PM CDT Screening for osteoporosis Other specified menopausal and perimenopausal disorders COLONOSCOPY Routine 06/21/2021 HEPATITIS C ANTIBODY Routine 04/13/2021 2:46 PM CDT Need for hepatitis C screening test from Last 3 Months or Most Recently Relevant to Health Maintenance Results * POCT lipid panel (01/08/2025 1:46 PM PRODUCT/INDUSTRY CONSULTANT) Cholesterol, POC 256 mg/dL HDL, POC 56 mg/dL Triglycerides, POC 325 mg/dL LDL Cholesterol POC 134 mg/dL Chol/HDL Ratio, POC 2.4 Non-HDL Cholesterol, POC 199 mg/dL Cholesterol Total, POC 256 mg/dL Capillary blood 01/08/2025 1 :46 PM PRODUCT/INDUSTRY CONSULTANT Ewa Cook NP POINT OF CARE TEST ORDERA BLES Final Result * PSG (01/03/2025 7:57 PM PRODUCT/INDUSTRY CONSULTANT) Brannon Mccloud MD SLEEP CENTER ORDERABLES Fin al Result [facility] [address] [place] [address] * MRI Breast Bilateral W WO Contrast (12/20/2024 10:41 AM PRODUCT/INDUSTRY CONSULTANT) Anatomical Region Laterality Modality Breast Bilateral Magnetic Resonan ce 12/20/2024 12:2 9 PM PRODUCT/INDUSTRY CONSULTANT Impressions 12/20/2024 12:29 PM PRODUCT/INDUSTRY CONSULTANT No suspicious abnormality in EITHER breast. OVERALL FINAL ASSESSMENT: BI-RADS Category 1: Negative. RECOMMENDATION: Annual screening mammography, with screening breast MRI if clinically indicated, are recommended. Electronically signed by: Patria Steward M.D. Narrative 12/20/2024 12:29 PM PRODUCT/INDUSTRY CONSULTANT EXAMINATION: 1. MRI EXAMINATION OF THE BREASTS WITH AND WITHOUT CONTRAST 2. 3D POST PROCESSING ON A DEDICATED 3D WORKSTATION HISTORY: High-risk Screening. 69-year-old woman with a reported family history of breast cancer. TECHNIQUE: MRI examination of the breasts per breast tumor protocol with and without gadolinium contrast. A dedicated breast imaging coil was used. The images were transferred to a breast CAD system for 3D post processing and contrast kinetics analysis. CONTRAST: Gadoterate meglumine, 14 ml COMPARISON: MRI 08/12/2022, 01/07/2022, mammogram 05/16/2024 BREAST COMPOSITION: Scattered fibroglandular tissue BACKGROUND PARENCHYMAL ENHANCEMENT: Moderate FINDINGS: Moderate background parenchymal enhancement limits evaluation. Within this limitation, there is no suspicious enhancement in EITHER breast. No abnormally enlarged lymph nodes are identified in the visualized portions of either axilla. Viktoriya Segovia MD IMG MRI PROCEDURES Final R esult * (ABNORMAL) POCT hemoglobin A1c (12/18/2024 11:13 AM PRODUCT/INDUSTRY CONSULTANT) Hemoglobin A1C, POC 7.3 4.0 - 5.6 % Blood 12/18/2024 11:1 3 AM PRODUCT/INDUSTRY CONSULTANT Tano Fregoso MD POINT OF CARE TEST ORDER MORRIS Final Result * Thyroid Function [place] (11/10/2024 12:00 PM PRODUCT/INDUSTRY CONSULTANT) Pathologist [facility] TSH 1.710 0.450 - 4.500 uIU/mL [facility] - 01 Comment: No apparent thyroid disorder. Additional testing not indicated. In rare instances, Secondary Hypothyroidism as well as Subclinical Hypothyroidism have been reported in some patients with normal TSH values. Blood 11/10/2024 12:0 0 PM PRODUCT/INDUSTRY CONSULTANT 11/10/2024 Narrative [facility] - 11/11/2024 8:07 AM PRODUCT/INDUSTRY CONSULTANT Performed at: 01 - [address] [id number] Wire Coiler Machine Operator: Ernie Crowley PhD, Phone: [phone] Tano Fregoso MD LAB BLOOD ORDERABLES Fin al Result [facility] - 01 * (ABNORMAL) CBC with auto differential (11/10/2024 12:00 PM PRODUCT/INDUSTRY CONSULTANT) Pathologist [facility] WBC 6.6 3.4 - 10.8 x10E3/uL [facility] - 01 RBC 5.47(H) 3.77 - 5.28 x10E6/uL [facility] - 01 Hgb 15.2 11.1 - 15.9 g/dL [facility] - 01 Hct 47.3(H) 34.0 - 46.6 % [facility] - 01 MCV 87 79 - 97 fL [facility] - 01 MCH 27.8 26.6 - 33.0 pg [facility] - 01 MCHC 32.1 31.5 - 35.7 g/dL [facility] - 01 Rdw 14.0 11.7 - 15.4 % [facility] - 01 Platelets 326 150 - 450 x10E3/uL [facility] - 01 Neutrophils pct 56 Not Estab. % [facility] - 01 Lymphs pct 27 Not Estab. % [facility] - 01 Monocytes pct 8 Not Estab. % [facility] - 01 Eosinophils pct 8 Not Estab. % [facility] - 01 Basophil pct 1 Not Estab. % [facility] - 01 Neutrophil abs 3.7 1.4 - 7.0 x10E3/uL [facility] - 01 Lymphs (Absolute) 1.8 0.7 - 3.1 x10E3/uL [facility] - 01 Monocyte abs 0.5 0.1 - 0.9 x10E3/uL [facility] - 01 Eosinophils, abs 0.5(H) 0.0 - 0.4 x10E3/uL [facility] - 01 Basophils, abs 0.1 0.0 - 0.2 x10E3/uL [facility] - 01 Immature Granulocytes 0 Not Estab. % [facility] - 01 Immature Grans (Abs) 0.0 0.0 - 0.1 x10E3/uL [facility] - 01 Blood 11/10/2024 12:0 0 PM PRODUCT/INDUSTRY CONSULTANT 11/10/2024 Narrative [facility] - 11/11/2024 7:06 AM PRODUCT/INDUSTRY CONSULTANT Performed at: [address] [place], [place] [id number] Wire Coiler Machine Operator: Ernie Crowley PhD, Phone: [phone] Tano Fregoso MD LAB BLOOD ORDERABLES Fin al Result Performing Organization Address [facility] de Phone Number [facility] - * Erythrocyte sedimentation rate (11/10/2024 12:00 PM PRODUCT/INDUSTRY CONSULTANT) [facility] Erythrocyte sedimentation rate 9 0 - 40 mm/hr [facility] - 01 Blood 11/10/2024 12:0 0 PM PRODUCT/INDUSTRY CONSULTANT 11/10/2024 Narrative [facility] - 11/11/2024 8:07 AM PRODUCT/INDUSTRY CONSULTANT Performed at: [address] [place] [id number] Wire Coiler Machine Operator: Ernie Crowley PhD, Phone: [phone] Tano Fregoso MD LAB BLOOD ORDERABLES Fin al Result Performing Organization Address [facility] de Phone Number [facility] - * CRP (acute phase) (11/10/2024 12:00 PM PRODUCT/INDUSTRY CONSULTANT) CRP 2 0 - 10 mg/L [facility] - 01 Blood 11/10/2024 12:0 0 PM PRODUCT/INDUSTRY CONSULTANT 11/10/2024 Narrative [facility] - 11/11/2024 8:07 AM PRODUCT/INDUSTRY CONSULTANT Performed at: [address] [id number] Wire Coiler Machine Operator: Ernie Crowley PhD, Phone: [phone] us Tano Fregoso MD LAB BLOOD ORDERABLES Fin al Result [facility] - 01 * (ABNORMAL) Comprehensive metabolic panel (11/10/2024 12:00 PM PRODUCT/INDUSTRY CONSULTANT) Glucose 175(H) 70 - 99 mg/dL [facility] - 01 BUN 15 8 - 27 mg/dL [facility] - 01 Creatinine, Serum 1.27(H) 0.57 - 1.00 mg/dL [facility] - 01 eGFR 45(L) >59 mL/min/1.7 3 [facility] - 01 BUN/creat ratio 12 12 - 28 [facility] - 01 Sodium 136 134 - 144 mmol/L [facility] - 01 Potassium, sr 4.8 3.5 - 5.2 mmol/L [facility] - 01 Chloride 100 96 - 106 mmol/L [facility] - 01 CO2 21 20 - 29 mmol/L [facility] - 01 Calcium 9.6 8.7 - 10.3 mg/dL [facility] - 01 Protein, sr 7.2 6.0 - 8.5 g/dL [facility] - 01 Albumin 4.5 3.9 - 4.9 g/dL [facility] - 01 Globulin, Total 2.7 1.5 - 4.5 g/dL [facility] - 01 Bilirubin, Total 0.4 0.0 - 1.2 mg/dL [facility] - 01 Alk phos 83 44 - 121 IU/L [facility] - 01 AST 17 0 - 40 IU/L [facility] - 01 ALT 12 0 - 32 IU/L [facility] - 01 Blood 11/10/2024 12:0 0 PM PRODUCT/INDUSTRY CONSULTANT 11/10/2024 Narrative [facility] - 11/11/2024 8:07 AM PRODUCT/INDUSTRY CONSULTANT Performed at: - [address] [id number] Wire Coiler Machine Operator: Ernie Crowley PhD, Phone: [phone] us Tano Fregoso MD LAB BLOOD ORDERABLES Fin al Result [facility] - 01 * PSG (11/04/2024 8:03 PM PRODUCT/INDUSTRY CONSULTANT) us Brannon Mccloud MD SLEEP CENTER ORDERABLES Fin al Result Performing Organization Address City/[facility]/ZIP Co de Phone Number [facility] [address] [place] [address] * Diabetic Eye Exam (09/18/2024) 09/18/2024 us Historical Provider HEALTH MAINTENANCE Edited Result - Final * Albumin Creatinine Ratio, Urine (07/25/2024 2:28 PM CDT) Albumin Ur <12.0 mg/L Comment: Interpretive Data No reference range established. Current interpretive data was last revised 2019. Testing performed by: [address] [address] Creatinine Ur 63.9 mg/dL [facility] Comment: Interpretive Data No reference range established. Current interpretive data was last revised 2019. Testing performed by: [address] [address] Albumin Creatinine Ratio, Ur <19 1 - 29 mg/g [facility] Comment:Testing performed by : [address] [address] Urine 07/25/2024 2:28 PM CDT 07/25/2024 8:07 PM CDT us Tano Fregoso MD LAB URINE ORDERABLES Fin al Result [facility] [address] [facility] [place] [address] * Diagnostic Mammogram Bilateral W Ren (05/16/2024 1:13 PM CDT) Anatomical Region Laterality Modality Breast Bilateral Mammography 05/16/2024 1:28 PM CDT Narrative 05/16/2024 1:31 PM CDT EXAM DESCRIPTION: US BREAST RIGHT LIMITED; DIAGNOSTIC MAMMOGRAM BILATERAL W REN REASON FOR STUDY: 68-year-old woman comes in today for evaluation of focal pain in the right breast, and screening of the left breast COMPARISON: Diagnostic mammogram and sonogram dated 04/29/2023, 06/29/2021. FINDINGS: CC and MLO digital breast tomosynthesis of both breasts with C view was performed. Targeted sonographic examination of the right breast was also performed with real-time grayscale images and color Doppler. FINDINGS: MAMMOGRAPHIC FINDINGS: DENSITY: The breasts are heterogeneously dense, which may obscure small masses. BREASTS: A metallic BB marker was placed on the right breast over the area of reported focal pain, which localizes to the 9 o'clock position middle depth. This is essentially identical to the site of previously reported focal pain in 2022, and 2020. There are no suspicious findings in the vicinity of the marker. Overall, there are no new suspicious findings in either breast on mammogram. ULTRASOUND FINDINGS: Targeted sonographic examination of the right breast is performed at the 9 o'clock position 7 cm from the nipple, corresponding to the area of reported focal pain. Only benign fatty and fibroglandular tissue is seen at this level without suspicious solid or cystic masses. IMPRESSION: 1. There are no suspicious findings in the right breast on mammogram or sonogram to account for the reported focal pain at the 9 o'clock position 7 cm from the nipple. This essentially corresponds to the same sites of previously reported focal pain back in 2022 and 2020. Diagnostic workup at that time also yielded negative results. Any further management at this time should be based on clinical assessment. 2. There are no new suspicious findings in either breast on mammogram. Continued monthly breast self-examination is recommended, and annual screening mammography in 12 months. BIRADS: 1 - Negative The patient was notified of the results and recommendations at the time of the examination. THIS IS AN ELECTRONICALLY VERIFIED FINAL REPORT 05/16/2024 1:31 PM - Electronically signed by Constantino Norton M.D. RL: MAT Report ID: [id number] Reading Location: [facility] Viktoriya Segovia MD IMG MAMMO PROCEDURES Final Result * Dexa Axial Skeleton Bone Density 1 Or 2 Site (04/20/2024 3:45 PM CDT) Anatomical Region Laterality Modality Body N/A Mammography 04/20/2024 7:52 PM CDT Narrative 04/20/2024 7:52 PM CDT EXAM DESCRIPTION: DEXA AXIAL SKELETON BONE DENSITY 1 OR MORE SITES REASON FOR STUDY: 68 y/o year old F with given history of: screening for osteoporosis Postmenopausal Senior Solutions Architect/Model: [employer] A (S/N [id number]) CLINICAL INFORMATION: Current height: 61.5 inches Maximum height: 64 inches Weight: 162 pounds Risk factors: Postmenopausal COMPARISON: None available FINDINGS: AP LUMBAR SPINE L1-L4: Total BMD is 1.034 g/cm2 T-score is -0.1 LEFT HIP: Total BMD is 1.039 g/cm2 T-score is 0.8 Femoral neck BMD is 0.754 g/cm2 T-score is -0.9 FRAX: FRAX not reported due to T-scores of hip, femoral neck and/or spine being at or above -1.0 (Normal). IMPRESSION: Normal bone mass. REFERENCE: Bone mineral density: T-Score: Normal (T-score above or = -1.0) Low bone mass (T-score between -1.0 and -2.5) replaces the previously used term osteopenia Osteoporosis (T-score = or below -2.5) Z-Score: Within the expected range for age (Z-score above -2.0) Below the expected range for age (Z-score is -2.0 or below) Please see below follow up recommendations. Medical evaluation for secondary causes of low bone mineral density may be appropriate. FRAX is a World Health Organization validated fracture risk assessment tool that calculates a person's 10 year probability of a major osteoporosis related fracture and hip fracture. According to the National Osteoporosis Foundation guidelines, postmenopausal women and men age 50 or older with low bone mass and a 10 year probability of a major osteoporosis related fracture = or greater than 20% or a 10 year probability of a hip fracture = or greater than 3% should be considered for pharmacological treatment for the prevention of osteoporosis. For further information, including treatment recommendations, please refer to the 2019 ISCD Official Positions (http://www.iscd.org) and the NOF's Clinician's Guide to Prevention and Treatment of Osteoporosis (http://www.nof.org/professionals/clinical-guidelines) THIS IS AN ELECTRONICALLY VERIFIED FINAL REPORT 04/20/2024 7:52 PM - Electronically signed by Kashmir Nick M.D. MF: [email or web address] Report ID: [id number] Reading Location: [place] [address] Procedure Note Kashmir Nick MD - 04/20/2024 EXAM DESCRIPTION: DEXA AXIAL SKELETON BONE DENSITY 1 OR MORE SITES REASON FOR STUDY: 68 y/o year old F with given history of: screeningfor osteoporosis Postmenopausal Senior Solutions Architect/Model: [employer] A (S/N [id number]) CLINICAL INFORMATION: Current height: 61.5 inches Maximum height: 64 inches Weight: 162 pounds Risk factors: Postmenopausal COMPARISON: None available FINDINGS: AP LUMBAR SPINE L1-L4: Total BMD is 1.034 g/cm2 T-score is -0.1 LEFT HIP: Total BMD is 1.039 g/cm2 T-score is 0.8 Femoral neck BMD is 0.754 g/cm2 T-score is -0.9 FRAX: FRAX not reported due to T-scores of hip, femoral neck and/or spine beingat or above -1.0 (Normal). IMPRESSION: Normal bone mass. REFERENCE: Bone mineral density: T-Score: Normal (T-score above or = -1.0) Low bone mass (T-score between -1.0 and -2.5) replaces thepreviously used term osteopenia Osteoporosis (T-score = or below -2.5) Z-Score: Within the expected range for age (Z-score above -2.0) Below the expected range for age (Z-score is -2.0 or below) Please see below follow up recommendations. Medical evaluation forsecondary causes of low bone mineral density may be appropriate. FRAX is a World Health Organization validated fracture risk assessmenttool that calculates a person's 10 year probability of a major osteoporosisrelated fracture and hip fracture. According to the National OsteoporosisFoundation guidelines, postmenopausal women and men age 50 or older with low bonemass and a 10 year probability of a major osteoporosis related fracture = or greater than 20% or a 10 year probability of a hip fracture = or greaterthan 3% should be considered for pharmacological treatment for the preventionof osteoporosis. For further information, including treatment recommendations, please referto the 2019 ISCD Official Positions (http://www.iscd.org) and the NOF's Clinician's Guide to Prevention and Treatment of Osteoporosis (http://www.nof.org/professionals/clinical-guidelines) THIS IS AN ELECTRONICALLY VERIFIED FINAL REPORT 04/20/2024 7:52 PM - Electronically signed by Kashmir Nick M.D. MF: MAHIN Report ID: [id number] Reading Location: [place] [address] Viktoriya Segovia MD IMG DXA PROCEDURES Final R esult * Colonoscopy (06/21/2021) Anatomical Region Laterality Modality Other Historical Provider ENDOSCOPY PROCEDURES Saniya l Result * Hepatitis C antibody (04/13/2021 2:46 PM CDT) Hep C Ab Nonreactive Nonreactive [facility] Comment: Interpretive Data Nonreactive: Antibodies to HCV not detected. Does NOT exclude the possibility of recent exposure to HCV. Equivocal: Equivocal for HCV antibodies. Supplemental molecular testing will be automatically performed to determine infection status in accordance with current CDC screening recommendations. Reactive: Positive for HCV antibodies. This may represent current or past HCV infection. Supplemental molecular testing will be automatically performed to determine current infection status in accordance with current CDC screening recommendations. Interpretive data was last revised on 2020. Blood specimen (specimen) 04/13/2021 2:46 PM CDT 04/13/2021 7:28 PM CDT us Tano Fregoso MD LAB MICROBIOLOGY - GENER AL ORDERABLES Final Result [facility] [address] [facility] [place] [address] from Last 3 Months or Most Recently Relevant to Health Maintenance Insurance MEDICARE [facility] MEDICARE [facility] Advance Directives For more information, please contact: [phone] * Full Code (Latest Code Status on File) Date Activated Date Inactivated Comments 04/10/2024 10:21 AM 04/10/2024 7:32 PM * Full Code Date Activated Date Inactivated Comments 12/26/2023 8:50 AM 12/26/2023 2:37 PM * Full Code Date Activated Date Inactivated Comments 12/26/2023 8:50 AM 12/26/2023 8:50 AM Care Teams Compressed Gas Tester Relationship Specialty [place] [address] [place] [id number] PCP - General Family Medicine 04/13/21
--- OUTSIDE RECORDS SUMMARY | 2025-01-10 16:59 | XMS_ITS | Referral Summary ---
Author Organization [facility] Building Address [address] [place] [phone] Care Team Providers Care Drop Shipment Clerk Name Role Phone Tano Fregoso MD Primary Care Provider + Encounters Date Type Department Care Team Description 01/10/2025 Telephone [facility] Medical [facility] Cardiology [address] [place] [phone] Patricia Peters MD 01/08/2025 Telephone [facility] [address] [place] [address] Hong Beck [facility] 01/08/2025 1:00 PM VALIDATION SOFTWARE FACILITATOR Office Visit [facility] Cardiology [address] [facility] [address] [place] [phone] Ewa Cook NP Coronary artery disease involving [place] coronary artery of [place] heart without angina pectoris (Primary Dx); Hyperlipidemia associated with type 2 diabetes mellitus (HCC); Lipid screening 01/03/2025 7:57 PM VALIDATION SOFTWARE FACILITATOR - 01/03/2025 11:59 PM VALIDATION SOFTWARE FACILITATOR Hospital Encounter [facility] [address] [place] [address] TRACY (obstructive sleep apnea) Discharge Disposition: Discharge to home or self care 12/21/2024 Telephone [facility] Obstetrical Gynecology [address] [facility] [address] [place] [phone] Annette Crawley LPN 12/20/2024 9:13 AM VALIDATION SOFTWARE FACILITATOR - 12/20/2024 11:59 PM VALIDATION SOFTWARE FACILITATOR Hospital Encounter [facility] Imaging and Radiology [address] [place] [address] Heterogeneously dense tissue of both breasts on mammography; Family history of breast cancer; Other signs and symptoms in breast Discharge Disposition: Discharge to home or self care 12/18/2024 10:45 AM VALIDATION SOFTWARE FACILITATOR Office Visit [facility] Primary Care [address] [place] [address] [address] [place] [address] Tano Fregoso MD Type 2 diabetes mellitus with hyperglycemia, without long-term current use of insulin (HCC) (Primary Dx); Hypertension associated with diabetes (HCC); Mixed hyperlipidemia; Coronary artery disease of [place] artery of [place] heart with stable angina pectoris; Gastroesophageal reflux disease without esophagitis; CUCO (generalized anxiety disorder); Moderate episode of recurrent major depressive disorder (HCC) 11/14/2024 Telephone [facility] Primary Care [address] [place] [address] [address] [place] [address] Tano Fregoso MD Med Refill 11/09/2024 Telephone [facility] Care [address] [place] [address] [address] [place] [address] Tano Fregoso MD Medical Question/Miscellaneous 11/09/2024 Telephone [facility] [address] [place] [address] Brannon Mccloud MD sleep study results 11/08/2024 Orders Only [facility] Pulmonology [address] [facility] [address] [place] [address] Brannon Mccloud MD TRACY (obstructive sleep apnea) (Primary Dx) 11/04/2024 8:00 PM VALIDATION SOFTWARE FACILITATOR - 11/04/2024 11:59 PM VALIDATION SOFTWARE FACILITATOR Hospital Encounter [facility] [address] [place] [address] SOB (shortness of breath); TRACY (obstructive sleep apnea); Psychophysiological insomnia; Delayed sleep phase syndrome; Nonsmoker; Non-seasonal allergic rhinitis due to pollen Discharge Disposition: Discharge to home or self care 10/26/2024 Nurse Triage [facility] Primary Care [address] [place] [phone] Jody Callaway Leila Tremor (Primary Dx) 10/26/2024 10:00 AM VALIDATION SOFTWARE FACILITATOR Office Visit [facility] Care at [address] [phone] Gely Witt NP Fall, initial encounter (Primary Dx); Acute ear pain, right 10/25/2024 Telephone [facility] Care [address] [place] [phone] Tano Fregoso MD 10/25/2024 Nurse Triage [facility] Care [address] [place] [phone] Tano Fregoso MD 10/15/2024 Telephone [facility] Care [address] [place] [phone] Tano Fregoso MD Medical Question/Miscellaneous from Last 3 Months Allergies Active Allergy Reactions Criticality Noted Date [...] change every 14 days 1 kit 07/26/20 Active cholecalcifero l (D3-2000) 2000 unit capsule [...] hyperglycemia, without long-term current use of insulin ([facility]) Inject 0.5 mg under the skin once a week 3 mL 12/18/19 25 025 Active Farxiga 10 mg tabletIndicati ons:Type 2 diabetes mellitus with hyperglycemia, without long-term current use of insulin ([facility]),Coronary artery disease of [place] artery of [place] heart with stable angina pectoris Take 1 [...] Diagnosed Date Irritable bowel syndrome with diarrhea Nonsmoker 06/13/2024 TRACY (obstructive sleep apnea) 06/13/2024 [...] medication Assessment & Plan (12/08/2022 4:04 PM VALIDATION SOFTWARE FACILITATOR): - stable - continue current medication Assessment [...] mo Assessment & Plan (09/13/2023 3:16 PM VALIDATION SOFTWARE FACILITATOR): - stable - continue current medications - [...] labs Assessment & Plan (12/08/2022 4:03 PM VALIDATION SOFTWARE FACILITATOR): - stable - continue current medication per [...] metoprolol Assessment & Plan (09/13/2023 3:16 PM VALIDATION SOFTWARE FACILITATOR): - stable - continue current medication Assessment [...] medication Assessment & Plan (12/17/2022 3:19 PM VALIDATION SOFTWARE FACILITATOR): - stable - continue current medication Assessment & Plan (12/08/2022 4:03 PM VALIDATION SOFTWARE FACILITATOR): - stable - continue current medication Assessment & Plan (02/09/2022 11:59 AM CDT): - stable - continue current medication Assessment & Plan (11/25/2021 12:25 PM VALIDATION SOFTWARE FACILITATOR): - stable - continue current medication Assessment [...] repatha Assessment & Plan (09/13/2023 3:17 PM VALIDATION SOFTWARE FACILITATOR): - stable - restart statin Assessment & [...] medication Assessment & Plan (12/08/2022 4:03 PM VALIDATION SOFTWARE FACILITATOR): - stable - continue current medication Assessment & Plan (08/13/2021 12:15 PM CDT): - stable - continue current medication Assessment & Plan (04/13/2021 2:36 PM CDT): - stable - continue current medication Coronary artery disease of n ative artery of [place] heart with stable angina pectoris 04/13/2021 Assessment & Plan (07/25/2024 2:16 PM CDT): - stable - continue asa, repatha Assessment & Plan (04/24/2024 4:27 PM CDT): - stable - continue asa, repatha Assessment & Plan (09/13/2023 3:16 PM VALIDATION SOFTWARE FACILITATOR): - stable - continue current medication Assessment & Plan (06/07/2023 3:17 PM CDT): - stable - continue current medication Assessment & Plan (12/08/2022 4:03 PM VALIDATION SOFTWARE FACILITATOR): - stable - continue current medication Assessment & Plan (02/09/2022 11:59 AM CDT): - stable - continue current medication Assessment & Plan (11/25/2021 12:26 PM VALIDATION SOFTWARE FACILITATOR): - stable - continue current medication Assessment [...] medication Assessment & Plan (12/08/2022 4:04 PM VALIDATION SOFTWARE FACILITATOR): - stable - continue current medication Assessment & Plan (02/09/2022 12:00 PM CDT): - stable - continue current medication Assessment & Plan (11/25/2021 12:25 PM VALIDATION SOFTWARE FACILITATOR): - stable - continue current medication Assessment [...] 04/13/2021 Assessment & Plan (09/13/2023 3:19 PM VALIDATION SOFTWARE FACILITATOR): - unclear etiology but given associated diarrhea will trial tx for IBS - start amitriptyline 25mg qhs - f/u with GI as planned. - if sx continue consider RUQ US Assessment & Plan (04/20/2021 9:21 AM CDT): - continue flagyl and cipro - continue zofran prn - will obtain records from [facility] to review imaging and labs - f/u [...] loss Assessment & Plan (12/08/2022 4:05 PM VALIDATION SOFTWARE FACILITATOR): - Reviewed with the patient BMI, blood [...] 06/07/2023 Assessment & Plan (12/08/2022 4:04 PM VALIDATION SOFTWARE FACILITATOR): - augmentin - flonase - f/u prn [...] 12/17/2022 Assessment & Plan (11/25/2021 12:27 PM VALIDATION SOFTWARE FACILITATOR): - suspect bruising vs. OA - check xray to ensure no fx. Rib pain 11/25/2021 12/17/2022 Assessment & Plan (11/25/2021 12:26 PM VALIDATION SOFTWARE FACILITATOR): - no palpable abnormality - pt reassured [...] abnormal electro cardiogram (ECG) (EKG) 03/02/2019 06/07/2023 Immunizations Immunization Administration Dates Next Due COVID-19 mRNA ([employer]) 0.3 m L (30 mcg) vaccine (12 [...] 08/13/2021 Pneumococcal Conjugate Pcv20 06/07/2023 Tdap 08/21/2022,03/29/2015 Social History Tobacco Use Types Packs/Day Years [...] on file Legal Sex Female 4:16 AM VALIDATION SOFTWARE FACILITATOR Gender Identity Not on file Sexual Orientation Not on file Last Filed Vital Signs Vital Sign Reading Time Taken Comments Blood Pressure 108/70 01/08/2025 1:07 PM VALIDATION SOFTWARE FACILITATOR Pulse 86 01/08/2025 1:07 PM VALIDATION SOFTWARE FACILITATOR Temperature 36.2 C (97.1 F) 12/18/2024 10:52 AM VALIDATION SOFTWARE FACILITATOR Respiratory Rate 16 12/18/2024 10:52 AM VALIDATION SOFTWARE FACILITATOR Oxygen Saturation 95% 01/08/2025 1:07 PM VALIDATION SOFTWARE FACILITATOR Inhaled Oxygen Concentration - - Weight 71.2 kg (157 lb) 01/08/2025 1:07 PM VALIDATION SOFTWARE FACILITATOR Height 160 cm (5' 3 ) 01/08/2025 1:07 PM VALIDATION SOFTWARE FACILITATOR Body Mass Index 27.81 01/08/2025 1:07 PM VALIDATION SOFTWARE FACILITATOR Plan of Treatment Not on file Medical Devices Implanted Type Area Sealing Machine Operator Device Identifier Shelf Expiration Date Model / Serial / Lot Stent- 0 Implanted:Qty: 1 on 09/14/2020 Stent Coronary [place] [employer]nergy / / [id number] [employer] [facility] Device Closure Vascade Od5 Fr Femoral Artery [id number] - [id number] Implanted:Qty: 1 on 04/10/2024 by Patricia Peters MD at [facility] [id number] / / Procedures Procedure Name Priority Date/Time Associated Diagnosis Comments POCT LIPID PANEL Routine 01/08/2025 1:46 PM VALIDATION SOFTWARE FACILITATOR Lipid screening PSG (SIMPLE) Routine 01/03/2025 7:57 PM VALIDATION SOFTWARE FACILITATOR TRACY (obstructive sleep apnea) MRI BREAST BILATERAL W WO CONTRAST Schedule Routine, Read Routine (OP Routine) 12/20/2024 10:41 AM VALIDATION SOFTWARE FACILITATOR Heterogeneously dense tissue of both breasts on mammography Family history of breast cancer Other signs and symptoms in breast POCT HEMOGLOBIN A1C Routine 12/18/2024 11:13 AM VALIDATION SOFTWARE FACILITATOR Type 2 diabetes mellitus with hyperglycemia, without long-term current use of insulin (HCC) THYROID FUNCTION CASCADE Routine 11/10/2024 12:00 PM VALIDATION SOFTWARE FACILITATOR Tremor ERYTHROCYTE SEDIMENTATION RATE Routine 11/10/2024 12:00 PM VALIDATION SOFTWARE FACILITATOR Tremor CRP (ACUTE PHASE) Routine 11/10/2024 12:00 PM VALIDATION SOFTWARE FACILITATOR Tremor CBC WITH AUTO DIFFERENTIAL Routine 11/10/2024 12:00 PM VALIDATION SOFTWARE FACILITATOR Tremor COMPREHENSIVE METABOLIC PANEL Routine 11/10/2024 12:00 PM VALIDATION SOFTWARE FACILITATOR Tremor PSG (SIMPLE) Routine 11/04/2024 8:03 PM VALIDATION SOFTWARE FACILITATOR SOB (shortness of breath) TRACY (obstructive sleep [...] * POCT lipid panel (01/08/2025 1:46 PM VALIDATION SOFTWARE FACILITATOR) Cholesterol, POC 256 mg/dL HDL, POC 56 mg/dL Triglycerides, POC 325 mg/dL LDL Cholesterol POC 134 mg/dL Chol/HDL Ratio, POC 2.4 Non-HDL Cholesterol, POC 199 mg/dL Cholesterol Total, POC 256 mg/dL Capillary blood 01/08/2025 1 :46 PM VALIDATION SOFTWARE FACILITATOR Ewa Cook NP POINT OF CARE TEST ORDERA BLES Final Result * PSG (01/03/2025 7:57 PM VALIDATION SOFTWARE FACILITATOR) Brannon Mccloud MD SLEEP CENTER ORDERABLES Fin al Result Performing Organization Address City/State/[facility] Co de Phone Number [facility] SLEEP [facility]IC[facility] [address] [place] [address] * MRI Breast Bilateral W WO Contrast (12/20/2024 10:41 AM VALIDATION SOFTWARE FACILITATOR) Anatomical Region Laterality Modality Breast Bilateral Magnetic Resonan ce 12/20/2024 12:2 9 PM VALIDATION SOFTWARE FACILITATOR Impressions 12/20/2024 12:29 PM VALIDATION SOFTWARE FACILITATOR No suspicious abnormality in EITHER breast. OVERALL FINAL ASSESSMENT: BI-RADS Category 1: Negative. RECOMMENDATION: Annual screening mammography, with screening breast MRI if clinically indicated, are recommended. Electronically signed by: Patria Steward M.D. Narrative 12/20/2024 12:29 PM VALIDATION SOFTWARE FACILITATOR EXAMINATION: 1. MRI EXAMINATION OF THE BREASTS [...] (ABNORMAL) POCT hemoglobin A1c (12/18/2024 11:13 AM VALIDATION SOFTWARE FACILITATOR) [facility] Hemoglobin A1C, POC 7.3 4.0 - 5.6 % Blood 12/18/2024 11:1 3 AM VALIDATION SOFTWARE FACILITATOR Tano Fregoso MD POINT OF CARE TEST ORDER MORRIS Final Result * Thyroid Function Baldwin (11/10/2024 12:00 PM VALIDATION SOFTWARE FACILITATOR) [facility] TSH 1.710 0.450 - 4.500 uIU/mL [facility] - 01 Comment: No apparent thyroid disorder. Additional testing not indicated. In rare instances, Secondary Hypothyroidism as well as Subclinical Hypothyroidism have been reported in some patients with normal TSH values. Blood 11/10/2024 12:0 0 PM VALIDATION SOFTWARE FACILITATOR 11/10/2024 Narrative [facility] - 11/11/2024 8:07 AM VALIDATION SOFTWARE FACILITATOR Performed at: [facility] [address] [id number] Him Manager: Ernie Crowley PhD, Phone: [phone] Tano Fregoso MD LAB BLOOD ORDERABLES Fin al Result [facility] - 01 * (ABNORMAL) CBC with auto differential (11/10/2024 12:00 PM VALIDATION SOFTWARE FACILITATOR) [facility] WBC 6.6 3.4 - 10.8 x10E3/uL [facility] [...] - 01 Blood 11/10/2024 12:0 0 PM VALIDATION SOFTWARE FACILITATOR 11/10/2024 Narrative [facility] - 11/11/2024 7:06 AM VALIDATION SOFTWARE FACILITATOR Performed at: - [facility] [address] [id number] Him Manager: Ernie Crowley PhD, Phone: [phone] us Tano Fregoso MD LAB BLOOD ORDERABLES Fin al Result [facility] - 01 * Erythrocyte sedimentation rate (11/10/2024 12:00 PM VALIDATION SOFTWARE FACILITATOR) Pathologist [facility] Erythrocyte sedimentation rate 9 0 - 40 mm/hr [facility] - 01 Blood 11/10/2024 12:0 0 PM VALIDATION SOFTWARE FACILITATOR 11/10/2024 Narrative [facility] - 11/11/2024 8:07 AM VALIDATION SOFTWARE FACILITATOR Performed at: [address] [place] [id number] Him Manager: Ernie Crowley PhD, Phone: [phone] Tano Fregoso MD LAB BLOOD ORDERABLES Fin al Result Performing Organization Address [facility] de Phone Number [facility] - 01 * CRP (acute phase) (11/10/2024 12:00 PM VALIDATION SOFTWARE FACILITATOR) [facility] CRP 2 0 - 10 mg/L [facility] - 01 Blood 11/10/2024 12:0 0 PM VALIDATION SOFTWARE FACILITATOR 11/10/2024 Narrative [facility] - 11/11/2024 8:07 AM VALIDATION SOFTWARE FACILITATOR Performed at: [address] [place] [id number] Him Manager: Ernie Crowley PhD, Phone: [phone] Tano Fregoso MD LAB BLOOD ORDERABLES Fin al Result Performing Organization Address [facility] de Phone Number [facility] - 01 * (ABNORMAL) Comprehensive metabolic panel (11/10/2024 12:00 PM VALIDATION SOFTWARE FACILITATOR) [facility] Glucose 175(H) 70 - 99 mg/dL [facility] - 01 BUN 15 8 - 27 mg/dL [facility] - 01 Creatinine, Serum 1.27(H) 0.57 - 1.00 mg/dL [facility] - 01 eGFR 45(L) >59 mL/min/1.7 3 [facility] - 01 BUN/creat ratio 12 12 - [facility] - 01 Sodium 136 134 - [...] - 01 Blood 11/10/2024 12:0 0 PM VALIDATION SOFTWARE FACILITATOR 11/10/2024 Narrative [facility] - 11/11/2024 8:07 AM VALIDATION SOFTWARE FACILITATOR Performed at: - [address] [id number] Him Manager: Ernie Crowley PhD, Phone: [phone] Tano Fregoso MD LAB BLOOD ORDERABLES Fin al Result [facility] - 01 * PSG (11/04/2024 8:03 PM VALIDATION SOFTWARE FACILITATOR) Brannon Mccloud MD SLEEP CENTER ORDERABLES Fin al Result [facility] SLEEP [facility]ICINE [address] [place] [address] * Diabetic Eye Exam (09/18/2024) 09/18/2024 Historical Provider HEALTH MAINTENANCE Edited Result - Final * Albumin Creatinine Ratio, Urine (07/25/2024 2:28 PM CDT) Albumin Ur <12.0 mg/L Comment: Interpretive Data No reference range established. Current interpretive data was last revised 2019. Testing performed by: [address] [address] Creatinine Ur 63.9 mg/dL [facility] Comment: Interpretive Data No reference range established. Current interpretive data was last revised 2019. Testing performed by: [address] [id number] Albumin Creatinine Ratio, Ur <19 1 - 29 mg/g [facility] Comment:Testing performed by : [address] [id number] Urine 07/25/2024 2:28 PM CDT 07/25/2024 8:07 PM CDT us Tano Fregoso MD LAB URINE ORDERABLES Fin al Result [facility] Department [place] [address] * Diagnostic Mammogram Bilateral W Ren (05/16/2024 [...] Constantino Norton M.D. RL: MAT Report ID: [id number] Reading Location: [facility] Viktoriya Segovia MD IMG MAMMO PROCEDURES Final [...] given history of: screening for osteoporosis Postmenopausal Sealing Machine Operator/Model: Lectorati A (S/N [id number]) CLINICAL INFORMATION: Current height: 61.5 inches Maximum [...] Kashmir Nick M.D. MF: MAHIN Report ID: [id number] Reading Location: [id number] Procedure Note Kashmir Nick MD - 04/20/2024 EXAM DESCRIPTION: DEXA AXIAL SKELETON BONE DENSITY 1 OR MORE SITES REASON FOR STUDY: 68 y/o year old F with given history of: screeningfor osteoporosis Postmenopausal Sealing Machine Operator/Model: Yohobuy Horizon A (S/N [id number]) CLINICAL INFORMATION: Current height: 61.5 inches Maximum [...] Kashmir Nick M.D. MF: MAHIN Report ID: [id number] Reading Location: [id number] Viktoriya Segovia MD IMG DXA PROCEDURES Final [...] 2:46 PM CDT 04/13/2021 7:28 PM CDT Tano Fregoso MD LAB MICROBIOLOGY - GENER AL ORDERABLES Final Result [facility] Department [place] [address] from Last 3 Months or Most Recently Relevant to Health Maintenance Insurance MEDICARE [facility] Member Subscriber Plan / Payer ( fective 2020-Present) Name:My Galan Relation to Subscriber:Self Name:My Galan Payer ID:[id number] Group ID:Not on file Type:COMMERCIAL Address: [place] [id number] MEDICARE [facility] Advance Directives For more information, please contact: [phone] * Full Code (Latest Code Status on File) Date Activated Date Inactivated Comments 04/10/2024 10:21 AM 04/10/2024 7:32 PM * Full Code Date Activated Date Inactivated Comments 12/26/2023 8:50 AM 12/26/2023 2:37 PM * Full Code Date Activated Date Inactivated Comments 12/26/2023 8:50 AM 12/26/2023 8:50 AM Care Teams Drop Shipment Clerk Relationship Specialty Start Date End Date Tano Fregoso MD [address] [id number] PCP - General Family Medicine 04/13/21
--- OUTSIDE RECORDS SUMMARY | 2025-01-10 20:52 | XMS_ITS | Encounter Summary ---
Author Organization [facility] Address [address] [place] [address] Care Team Providers Care Senior Training And Development Rep Name Role Phone Tano Fregoso MD Primary Care Provider [phone] Li Lee MD Unavailable Encounter Details Date Type Department Care Team (Late st Contact Info) Description 04/22/2021 Abstract [facility] [address] Sis Mchugh MA Social History Tobacco Use [...] on file Legal Sex Female 4:34 PM NEWS PRODUCTION ASSISTANT Gender Identity Not on file Sexual Orientation [...] Final Result * HEMOGLOBIN, GLYCOSYLATED (05/14/2022) Pathologist [facility] HGB A1C 7.5 % 05/14/2022 [facility] Final Result * LIPID PANEL (05/14/2022) Pathologist [facility] CHOLESTEROL 187 HDL 65 TRIGLYCERIDES 136 LDL (CALCULATED) 98 05/14/2022 [facility] Final Result * (ABNORMAL) COMPREHENSIVE METABOLIC PANEL (05/14/2022) Pathologist [facility] SODIUM S/P/B 140 POTASSIUM S/P/B 4.4 CO2 [...] Result * THYROXINE, FREE (FT4) (05/14/2022) Pathologist [facility] FREE T4 1.39 05/14/2022 [facility] Final Result * THYROID STIM HORMONE, TSH (05/14/2022) Pathologist [facility] TSH 2.770 05/14/2022 Doc [facility]AT[facility] [...] on filedocumented in this encounter Care Teams Senior Training And Development Rep Relationship Specialty Start Date End Date Tano Fregoso MD [address] [place] [id number] PCP - General FAMILY PRACTICE 04/21/21 Li Lee MD [address] [place] [address] [place] [phone] ENDOCRINOLOGY 06/07/22 documented as of this encounter
--- OUTSIDE RECORDS SUMMARY | 2025-01-10 20:52 | XMS_ITS | Referral Summary ---
Author Organization [facility] Address [address] [facility] [address] Care Team Providers Care Software Tools Build Engineer Name Role Phone Tano Fregoso MD Primary Care Provider + Source Comments [facility],non-owned Affiliates and Associated Physician Practices is amultiple site organization consisting of ambulatory clinics and hospital sitesin [place], [place], [place] and [place]. This disclosure is being madepursuant to the Care Everywhere program and may not contain all information available regarding this patient. Last updated 18.[facility] Allergies Active Allergy Reactions Criticality Noted Date [...] current medication Coronary artery disease invo lving knik coronary artery of knik heart without angina pectoris 04/13/2021 11/09/2023 Overview [...] Sex Assigned at Female 11/24/2021 9:23 PM CUSTOM WOOD STAIR BUILDER Gender Identity Female 11/24/2021 9:23 PM CUSTOM WOOD STAIR BUILDER Sexual Orientation Straight 11/24/2021 9: 23 PM CUSTOM WOOD STAIR BUILDER Last Filed Vital Signs Vital Sign Reading [...] CDT Office Visit [facility] - DATA BASE DESIGN ANALYST [address] [place] [phone] Elysia Gunderson Che, MD [address] [place] [address] Care Teams Software Tools Build Engineer Relationship Specialty [place] [address] [place] [address] [address] [place] [address] PCP - General Family Medicine 12/07/23
--- OUTSIDE RECORDS SUMMARY | 2025-01-10 20:52 | XMS_ITS | Clinical Summary ---
Author Organization [facility] Address [address] [place] [phone] Phone Care Team Providers Care Tabber Name Role Phone Unavailable Primary Care Provider Unavailabl e Social History Tobacco Use Types Packs/Day Years Used Date Smoking Tobacco: Never Assessed Comments Unknown Sex and Gender Information Value Date Recorded Sex Assigned at Not on file Legal Sex Female 3:26 PM AMMONIA NITRATE OPERATOR Gender Identity Not on file Sexual Orientation [...]
--- OUTSIDE RECORDS SUMMARY | 2025-01-10 20:52 | XMS_ITS | Clinical Summary ---
Author Organization [facility] Address [address] [place] [address] Care Team Providers Care Base Loader Name Role Phone Tano Fregoso MD Primary Care Provider + Source Comments [facility],non-owned Affiliates and Associated Physician Practices is amultiple site organization consisting of ambulatory clinics and hospital sitesin [place], [place], [place]. This disclosure is being madepursuant to the Care Everywhere program and may not contain all information available regarding this patient. Last updated 18.[facility] Allergies Active Allergy Reactions Criticality Noted Date [...] current medication Coronary artery disease invo lving yocha dehe coronary artery of [place] de[place] heart without angina pectoris 04/13/2021 11/09/2023 Overview [...] Sex Assigned at Female 11/24/2021 9:23 PM TAX ADJUSTER Gender Identity Female 11/24/2021 9:23 PM TAX ADJUSTER Sexual Orientation Straight 11/24/2021 9: 23 PM TAX ADJUSTER Last Filed Vital Signs Vital Sign Reading [...] CDT Office Visit [facility] - TOURS CAPTAIN [address] [place] [address] Elysia Gunderson Che, MD [address] [place] [address] Health Maintenance Due Date Last [...] age to complete this topic Care Teams Base Loader Relationship Specialty Start Date End Date Tano Fregoso MD [address] [phone] PCP - General Family Medicine 12/07/23
--- OUTSIDE RECORDS SUMMARY | 2025-01-10 20:52 | XMS_ITS | Continuity of Care Document ---
Author Organization [facility] Address [address] [place] [address] Phone Care Team Providers Care Ethics Instructor Name Role Phone Ney Briggs MD Unavailable Unavailable Advance Directives Directive Yes / No Effective Date File Name No Information Encounters Encounter Description Practice Location Reason(s) For Visit Diagnoses Date Provider Providers Copied on Encounter [facility], [address], [place], [place], [id number], [place] tel:[phone] [facility] No Information 4-[address]. [address] [facility] [place], [place], [id number], [place]. tel:[phone] Referring Provider: Anthony Harrell OD, [address] [place], [address]. tel:[phone] Family History Family Member Type Diagnosis Age [...]
--- OUTSIDE RECORDS SUMMARY | 2025-01-10 20:52 | XMS_ITS | Encounter Summary ---
Author Organization [facility] Address [address] [place] [address] Care Team Providers Care Hybrid Tester Name Role Phone Tano Fregoso MD Primary Care Provider + Encounter Details Date Type Department Care Team (Late st Contact Info) Description 01/10/2025 Telephone [facility] Medical Group Cardiology [address] [place] [address] Patricia Peters MD [address] [place] [id number] Social History Tobacco Use Types Packs/Day [...] on file Legal Sex Female 4:16 AM MITER GRINDER OPERATOR Gender Identity Not on file Sexual Orientation Not on file documented as of this encounter Miscellaneous Notes * Telephone Encounter - Tony Bales RN - 01/10/2025 4:18 PM MITER GRINDER OPERATOR Noted. Will await results from ED evaluation. R GRINDER OPERATOR * Telephone Encounter - Maureen Cohen - 01/10/2025 4:03 PM CST Pt son in law Darnell called to report that pt is having dizzy spells, heart is racing, and pt just does not feel well. They are going to take pt to ED. Contact: R GRINDER OPERATOR documented in this encounter Plan of Treatment Not on file documented as of this encounter Visit Diagnoses Not on filedocumented in this encounter Care Teams Hybrid Tester Relationship Specialty Start Date End Date Tano Fregoso MD [address] [place] [address] PCP - General Family Medicine 04/13/21 documented as of this encounter
--- OUTSIDE RECORDS SUMMARY | 2025-01-10 20:52 | XMS_ITS | Patient Health Summary ---
Author Organization [facility] Address [address] [facility] [place] [address] Care Team Providers Care Ore Charger Name Role Phone Tano Fregoso MD Primary Care Provider + Note from [facility],non-owned Affiliates and Associated Physician Practices is amultiple site organization consisting of ambulatory clinics and hospital sitesin [place], [place], [place] and [place]. This disclosure is being madepursuant to the Care Everywhere program and may not contain all information available regarding this patient. Last updated 18.[facility] Allergies * Diclofenac Epolamine(Unknown) * Dulaglutide(Diarrhea,Vomiting) -High [...] 04/13/2021 11/09/2023 Coronary artery disease invo lving [place] coronary artery of [place] heart without angina pectoris 04/13/2021 11/09/2023 Gastroesophageal [...] Sex Assigned at Female 11/24/2021 9:23 PM WIRE SPOOLER Gender Identity Female 11/24/2021 9:23 PM WIRE SPOOLER Sexual Orientation Straight 11/24/2021 9: 23 PM WIRE SPOOLER Last Filed Vital Signs Vital Sign Reading [...] is included. Case Report Dermatopathology Report Case: [id number] Authorizing Provider: Pricila Victor MD Collected: 06/03/2023 12:00 AM Ordering Location: [facility] DermPath Lab Received: 06/06/2023 12:58 PM Pathologist: [...] characteristic determined by the Dermatopathology Laboratory at [facility], directed by Dr. Luis E Negron. These tests need not be, and therefore are not, approved by the [place] Food and Drug Administration. The tests are used for clinical purposes. Billing Codes Specimen Charges Stain Charges 78178 1 1:12 PM CDT DERMATOPATHOLOGY LABORATORY Embedded Images 1:12 PM CDT DERMATOPATHOLOGY LABORATORY Pathology/Cytolog y TISSUE SPECIMEN FROM SKIN / Unknown 06/03/2023 06/06/2023 12:58 PM CDT Pricila Victor MD LAB - PATHOLOGY/CYTO LOGY ORDERABLES DERMATOPATHOLOGY LABORATORY [facility] Department of Dermatology [address], [address] [phone] * CARDIAC STRESS TEST ORDER (04/16/2019 6:41 PM CDT) Narrative 04/16/2019 6:41 PM CDT Ordered by an unspecified provider. Scanned Document CARDIAC SERVICES ORD ERABLES * ECHOCARDIOGRAM 2D WITH DOPPLER (03/08/2019 1:55 PM CDT) 03/08/2019 1:55 PM CDT Narrative [facility] - 03/12/2019 6:34 PM CDT [facility] [place] [facility] [address] [id number] Transthoracic Echocardiogram 2D, M-mode, Doppler, and Color Doppler Patient: ELDER GALAN MR number: [id number] Height: 63 in Weight: 168.1 lb BSA: 1.8 m Study date: 08-Mar-2019 : 1955 Age: 63 years Gender: Female Race: 2 Diagnoses: R07.9 - Chest pain, unspecified Reading Physician: Edmundo Gonzalez MD Referring Physician: Edmundo Gonzalez MD TONGUE AND GROOVE MACHINE OPERATOR: Beatris Birch [facility] Cardiology Group: [facility] Summary: - Left ventricle: - Systolic [...] Procedure: The study was performed in the [facility]. This was a routine study. The transthoracic [...] MV A Isaac: 0.8 m/s MV Dec Bourbon: 1.7 m/s2 MV E Isaac: 0.6 m/s MV E/A Ratio: 0.7 RVSP: 27.4 mmHg Prepared and signed by Edmundo Gonzalez MD Signed 12-Mar-2019 18:34:09 Procedure Note Unknown, Provider, - 03/12/2019 [facility] [place] [facility] [address] [address] [place] [address] Transthoracic Echocardiogram 2D, M-mode, Doppler, and Color Doppler Patient: ELDER GALAN MR number: [id number] Height: 63 in Weight: 168.1 lb BSA: 1.8 m Study date: 08-Mar-2019 : 1955 Age: 63 years Gender: Female Race: 2 Diagnoses: R07.9 - Chest pain, unspecified Reading Physician: Edmundo Gonzalez MD Referring Physician: Edmundo Gonzalez MD TONGUE AND GROOVE MACHINE OPERATOR: Beatris Birch [facility] Cardiology Group: [facility] Summary: - Left ventricle: - Systolic [...] Procedure: The study was performed in the [facility]. This was a routine study. The transthoracic [...] MV A Isaac: 0.8 m/s MV Dec Bourbon: 1.7 m/s2 MV E Isaac: 0.6 m/s MV E/A Ratio: 0.7 RVSP: 27.4 mmHg Prepared and signed by Edmundo Gonzalez MD Signed 12-Mar-2019 18:34:09 Edmundo Gonzalez MD ECHO ORDERABLES [facility] * ECHOCARDIOGRAM STRESS (03/07/2019 3:00 PM CDT) 03/07/2019 3:00 PM CDT Narrative [facility] - 03/12/2019 6:23 PM CDT [facility] [place] [facility] [address] [place] [address] Exercise Stress Echocardiography Name: ELDER GALAN MR #: [id number] Study date: 07-Mar-2019 : 1955 Age: 63 years Gender: Female Height: 63 in Weight: 168 lb BSA: 1.8 m Diagnosis: R07.9 - Chest pain, unspecified Reading Physician: Edmundo Gonzalez MD Referring Physician: Edmundo Gonzalez MD TONGUE AND GROOVE MACHINE OPERATOR: Beatris Birch [facility] Cardiology Group: [facility] CLINICAL QUESTION: Detection of coronary artery [...] peak heart rate and blood pressure [place] [address]. The stress test was terminated due to [...] 18:23:25 Procedure Note Unknown, ProviderMD - 03/12/2019 [facility] [place] [facility] [address] [place] [address] Exercise Stress Echocardiography Name: ELDER GALAN MR #: [id number] Study date: 07-Mar-2019 : 1955 Age: 63 years Gender: Female Height: 63 in Weight: 168 lb BSA: 1.8 m Diagnosis: R07.9 - Chest pain, unspecified Reading Physician: Edmundo Gonzalez MD Referring Physician: Edmundo Gonzalez MD TONGUE AND GROOVE MACHINE OPERATOR: Beatris Birch [facility] Cardiology Group: [facility] CLINICAL QUESTION: Detection of coronary artery [...] peak heart rate and blood pressure was [address]. The stress test was terminated due to [...] ECG ORDERABLES [facility] RESULT SCAN Care Teams Ore Charger Relationship Specialty Start Date End Date Tano Fregoso MD [address] [place] [address] PCP - General Family Medicine 12/07/23
--- OUTSIDE RECORDS SUMMARY | 2025-01-10 20:52 | XMS_ITS | Clinical Summary ---
Author Organization [facility] Address [address] [place] [address] Care Team Providers Care Mine Manager Name Role Phone Tano Fregoso MD Primary Care Provider [phone] Li Lee MD Unavailable Allergies Active Allergy [...] Type 2 diabetes mellitus wit h hyperglycemia ([facility]) 06/07/2023 Overview (06/27/2023): Last Assessment & Plan: [...] episode of recurren t major depressive disorder ([facility]) 02/09/2022 Overview (06/27/2023): Last Assessment & Plan: - stable - continue current medication Essential hypertension 04/13/2021 Overview (04/21/2021): Last Assessment & Plan: - stable - continue current medication Gastroesophageal reflux disease without esophagi tis 04/13/2021 Overview (06/27/2023): Last Assessment & Plan: - stable - continue current medication Hypertension associated with diabetes ([facility]) 04/13/2021 Overview (06/27/2023): Last Assessment & Plan: - stable - continue current medication Controlled type 2 diabetes m ellitus without complication, without long-term current use of insulin ([facility]) 04/13/2021 Overview (06/27/2023): Last Assessment & Plan: - stable - continue current medication - check labs H/O hypercalcemia 09/26/2020 NSTEMI (non-ST elevated myoc ardial infarction) ([facility]) 09/13/2020 Hyperlipidemia 01/25/2020 Type 2 diabetes mellitus wit hout complication, without long-term current use of insulin ([facility]) 03/02/2019 Resolved Problems Problem Noted Date Diagnosed Date Resolved Date Coronary artery disease invo lving jackson coronary artery of jackson heart with angina pectoris 01/06/2021 04/21/2021 Immunizations [...] on file Legal Sex Female 4:34 PM ADMISSIONS ADVISOR Gender Identity Not on file Sexual Orientation [...] Recently Relevant to Health Maintenance Insurance MEDICARE [facility] MEDICARE [facility] Care Teams Mine Manager Relationship Specialty Start Date End Date Tano Fregoso MD [address] [address] PCP - General FAMILY PRACTICE 04/21/21 Li Lee MD [facility] [place] [id number] ENDOCRINOLOGY 06/07/22
--- OUTSIDE RECORDS SUMMARY | 2025-01-10 20:52 | XMS_ITS | Continuity of Care Document ---
Author Organization [facility] Address [address] [place] [address] Phone Care Team Providers Care Tobacco Baler Name Role Phone Unavailable Unavailable Unavailable Results [...] Diagnoses Date Provider Providers Copied on Encounter [facility], [address], [place], [place], [address] , [place] tel: [phone] [facility] LONG-TERM USE MEDS NEC 8200 4 No Information [facility], [address], [place], [place], [address] , tel: [phone] [facility] ABN BLOOD CHEMISTRY NEC Sep-2 0-200 4 [employer] [place] [address], [place], [place], [address], [place]. tel:[phone] [facility], [address], [place], [place], [address] , [place] tel: [phone] [facility] ACUTE PHARYNGITISBENIGN HYPERTENSIONMIXED HYPERLIPIDEMIA Sep-1 7-200 4 [employer] [place] [address], [address], [place], [place], [address], [place]. tel:[phone] [facility], [address], [place], [place], [address] , [place] tel: [phone] [facility] ACUTE SINUSITIS NOS Apr-2 3-200 4 [employer] [place] [address], [place], [place], [address], [place]. tel:[phone] [employer], [address], [place], [place], [address] , [place] tel: [phone] [facility] SYMPT FEM CLIMACT STATE Mar-0 2-200 4 [employer]. [address], [place], [address], [place]. Family History Family Member Type Diagnosis [...]
--- OUTSIDE RECORDS SUMMARY | 2025-01-10 20:53 | XMS_ITS | Data Portability ---
Author Organization [place] - [facility] [employer], Main Office Address [address] [place] [address] Assessment No assessment recorded. Plan of Treatment Reminders Order Date Submit Date Provider Last Modified By Organization Details Last Modified Time Details Appointments None recorded. Lab None recorded. Referral endocrinolo gy referral 2022 023 Vee Flynn MD, [address],, [facility], [place], [address], 3 12:19:07 Procedures None recorded. Surgeries None recorded. Imaging None recorded. Medication Orders Repatha SureClick 140 mg/mL subcutaneou s pen injector 2022 023 [facility] #[id number], [address] [facility], [place], [place], [id number], 3 12:05:50 rosuvastati n 40 mg tablet 2022 023 [facility][id number], [address] [facility], [place], [place], [id number], 3 12:05:28 Farxiga 10 mg tablet 2022 023 [facility] [facility] #[id number], [address] [facility], [place], [place], [id number], 3 12:05:48 glimepiride 2 mg tablet 2022 023 [facility] #[id number], [address] [facility], [place], [place], [id number], 3 12:06:30 metformin ER 500 mg tablet,exte nded release 24 hr 2022 023 [facility] #[id number], [address], [place], [place], [id number], 3 12:06:32 Patient TargetsNo targets recorded. Patient InstructionsNo instructions recorded. Reason for Referral Endocrinology Referral for U ncontrolled type 2 diabetes mellitus Referring Physician: Li Lee, Endocrinology, Encounter Date: 07/28/2023 Results Created Date Observation Date Name Description Value Unit Range Abnormal Flag Note LastModifiedBy Organization Detail LastModifiedTime 03/01/2003/01/2023 , rodrick lilibeth Razo observ ation record ed. [email or web address] [facility] [address], [place], [address], 03/25/2023 09:10:33 Result Notes None recorded. Problems Name Problem SNOMED Code Status Onset Date Resolution Date Notes Provider Name and Address Organization Details Recorded Time Knee pain Active Not Available [facility] 3 02:33:04 Type 2 diabetes mellitus 69764300 Active 2019 Not Available [facility] 3 02:33:04 Hyperlipidemi a 03911771 Active 2019 Not Available [facility] 3 02:33:04 Chronic kidney disease stage 3 081141267 Active 2022 DO Flores, [employer] 3 10:14:14 Uncontrolled type 2 diabetes mellitus 241645645 Active 2022 Li Lee MD [address], [place], [address] , [employer] 3 20:19:34 Dyslipidemia 042056388 Active 2022 Li Lee MD [address], [place], [address] , [employer] 3 12:00:10 Mixed hyperlipidemi a 271256289 Active 2022 Li Lee MD [address], [facility] [address], [place], [address] , [facility] [employer] [facility] 3 13:12:55 Notes:Some problems listed i n Document: #[id number] could not be added to this patient's chart. Please review this document and add these problems to the patient's chart manually as needed. Problem Notes None recorded. Procedures Surgical History Date Name Laterality Status Provider Name and Address Organization Details Recorded Time 7 delivery completed Not Available [facility] 01/05/2023 02:30:41 Foot Surgery completed Not Available [facility] 01/05/2023 02:30:41 excision of bunion completed Not Available [facility] 01/05/2023 02:30:41 Imaging Results Imaging Date Name Status LastModified by Organiz ation Details LastModified Time 03/01/2023 US, kidney completed [email or web address] [facility] [address] [facility] [address], [place], [address], 03/25/2023 09:10:33 Procedure Notes None recorded. Medical Equipment None Reported. Allergies Allergen ID Allergen Name Allergen Category Reaction Reaction Severity Criticality Documentation Date Start Date Code Code System Note Provider Name and Address Organization Details Recorded Time 3288 Trulicity medicatio n vomiting Not available Not available 01/05/2023 53208 96 RxNorm Not Available [facility] 3 02:36:46 3289 diclofena c Not available Not available Not available Not available 01/05/2023 3355 RxNorm possi ble riddhi er for Liche n Planu s Not Available [facility] 3 02:36:46 Medications Name Sig Start Date Stop Date Status Note LastModified by Organization Details LastModified Time quetiapine 25 mg tablet TAKE 1 TABLET BY MOUTH EVERY DAY AT BEDTIME 12/24 completed Not Available Not Available Not Available amoxicillin 500 mg capsule 01/24 completed Not Available Not Available Not Available doxycycline hyclate 100 mg capsule TAKE 1 CAPSULE BY MOUTH TWICE DAILY active Not Available Not Available No t Available paroxetine 10 mg tablet TAKE 1 TABLET BY MOUTH EVERY DAY 07/28 completed Not Available Not Available Not Available ketoconazol e 2 % shampoo USE SHAMPOO 1 TO 3 TIMES A WEEK NEEDED FOR SCALP RASH. LEAVE ON FOR 5 TO 10 MINUTES BEFORE RINSING active Not Available Not Available No t Available tizanidine 2 mg tablet TAKE 1 TABLET BY MOUTH THREE TIMES DAILY 12/24 completed Not Available Not Available Not Available ibuprofen 800 mg tablet 01/24 completed Not Available Not Available Not Available nystatin 100,000 unit/gram topical ointment APPLY TOPICALLY TO THE AFFECTED AREA TWICE DAILY active Not Available Not Available No t Available hydrocodone 5 mg-acetamin ophen 325 mg tablet 01/24 completed Not Available Not Available Not Available ondansetron HCl 4 mg tablet 09/01 completed Not Available Not Available Not Available clonazepam 0.5 mg tablet TK 1 T PO BID 05/12 completed Not Available Not Available Not Available amoxicillin 250 mg-potassiu m clavulanate 125 mg tablet 01/24 completed Not Available Not Available Not Available metronidazo le 500 mg tablet 09/01 completed Not Available Not Available Not Available acetaminoph en 300 mg-codeine 30 mg tablet 01/24 completed Not Available Not Available Not Available clopidogrel 75 mg tablet 12/24 completed Not Available Not Available Not Available doxepin 10 mg capsule TAKE 1 TO 2 CAPSULES BY MOUTH EVERY NIGHT FOR ITCHING active Not Available Not Available No t Available ciprofloxac in 500 mg tablet 09/01 completed Not Available Not Available Not Available peg-electro lyte solution 420 gram oral solution TAKE DIRECTED BY OFFICE 09/01 completed Not Available Not Available Not Available aspirin 81 mg tablet,rogelio yed release TK 1 T PO QD active Not Available Not Available No t Available TobraDex 0.3 %-0.1 % eye ointment APPLY A SMALL AMOUNT TO EYE LIDS TWICE DAILY FOR 10 DAYS 09/01 completed Not Available Not Available Not Available glimepiride 2 mg tablet TAKE 2 TABLETS BY MOUTH TWICE DAILY BEFORE MEALS active Not Available Not Available No t Available glimepiride 1 mg tablet TAKE 2 TABLETS BY MOUTH TWICE DAILY 08/25 completed Not Available Not Available Not Available oxycodone-a cetaminophe n 5 mg-325 mg tablet TAKE 2 TABLETS BY MOUTH EVERY 4 HOURS FOR UP TO 5 DAYS NEEDED FOR PAIN 08/24 completed Not Available Not Available Not Available amoxicillin 875 mg tablet TAKE 1 TABLET BY MOUTH TWICE DAILY FOR 10 DAYS active Not Available Not Available No t Available famotidine 20 mg tablet TAKE 1 TABLET BY MOUTH TWICE DAILY 09/01 completed Not Available Not Available Not Available triamcinolo ne acetonide 0.1 % dental paste 01/24 completed Not Available Not Available Not Available dexamethaso ne 1 mg tablet Take one tablet at 10 pm the night prior to 8 am cortisol level active Not Available Not Available No t Available paroxetine 20 mg tablet TAKE 2 TABLETS BY MOUTH EVERY DAY active Not Available Not Available No t Available pantoprazol e 40 mg tablet,rogelio yed release active Not Available Not Available Not Available erythromyci n 5 mg/gram (0.5 %) eye ointment APPLY A THIN LAYER IN THE RIGHT EYE TWICE DAILY 09/01 completed Not Available Not Available Not Available neomycin-po lymyxin-dex ameth 3.5 mg/mL-10,00 0 unit/mL-0.1 % eye drops SHAKE LIQUID AND INSTILL 1 DROP IN BOTH EYES TWICE DAILY active Not Available Not Available No t Available promethazin e 25 mg tablet TAKE 1/2 TABLET BY MOUTH EVERY 6 HOURS NEEDED FOR NAUSEA 09/01 completed Not Available Not Available Not Available diclofenac sodium 75 mg tablet,rogelio yed release 01/24 completed Not Available Not Available Not Available montelukast 10 mg tablet TAKE 1 TABLET BY MOUTH DAILY active Not Available Not Available No t Available telmisartan 20 mg tablet TK 1 T PO ONCE D active Not Available Not Available No t Available metoprolol succinate ER 25 mg tablet,exte nded release 24 hr active Not Available Not Available Not Available levofloxaci n 500 mg tablet 01/24 completed Not Available Not Available Not Available doxycycline hyclate 20 mg tablet TAKE 2 TABLETS BY MOUTH DAILY 09/01 completed Not Available Not Available Not Available pioglitazon e 30 mg tablet TAKE 1 TABLET BY MOUTH EVERY DAY IN THE MORNING 08/24 completed Not Available Not Available Not Available betamethaso ne dipropionat e 0.05 % topical ointment APPLY TOPICALLY TO THE AFFECTED AREA TWICE DAILY active Not Available Not Available No t Available clobetasol 0.05 % scalp solution APPLY TO SCALP DAILY NEEDED UP TO 5 OUT 7 DAYS PER WEEK active Not Available Not Available No t Available metformin ER 500 mg tablet,exte nded release 24 hr TAKE 1 TABLET BY MOUTH EVERY DAY WITH DINNER 2022 active Not Available Not Available Not Avai lable clotrimazol e 1 % topical cream APPLY TOPICALLY TO THE AFFECTED AREA TWICE DAILY 09/01 completed Not Available Not Available Not Available naproxen 500 mg tablet 01/24 completed Not Available Not Available Not Available finasteride 1 mg tablet TAKE 1 TABLET BY MOUTH EVERY DAY IN THE MORNING 03/02 completed Not Available Not Available Not Available amoxicillin 875 mg-potassiu m clavulanate 125 mg tablet TAKE 1 TABLET BY MOUTH TWICE DAILY FOR 10 DAYS 12/24 completed Not Available Not Available Not Available clindamycin phosphate 1 % topical solution APPLY TO BUMPS ON SCALP TWICE DAILY NEEDED active Not Available Not Available No t Available tobramycin 0.3 %-dexametha sone 0.1 % eye drops,suspe nsion SHAKE LIQUID AND INSTILL 1 DROP IN BOTH EYES TWICE DAILY active Not Available Not Available No t Available clindamycin 1 % lotion APPLY TO BUMPS ON SCALP TWICE DAILY NEEDED active Not Available Not Available No t Available ezetimibe 10 mg tablet TAKE 1 TABLET BY MOUTH EVERY DAY 07/28 completed Not Available Not Available Not Available rosuvastati n 20 mg tablet 10/21 completed Not Available Not Available Not Available rosuvastati n 40 mg tablet TAKE 1 TABLET BY MOUTH EVERY DAY AT BEDTIME active Not Available Not Available No t Available bupropion HCl XL 300 mg 24 hr tablet, extended release TAKE 1 TABLET BY MOUTH EVERY DAY 07/28 completed Not Available Not Available Not Available bupropion HCl XL 150 mg 24 hr tablet, extended release TAKE 1 TABLET BY MOUTH EVERY DAY IN THE MORNING 07/28 completed Not Available Not Available Not Available escitalopra m 5 mg tablet TAKE 1 TABLET BY MOUTH EVERY DAY active Not Available Not Available No t Available metoprolol tartrate 25 mg tablet TK 1 T PO BID active Not Available Not Available No t Available fenofibrate 160 mg tablet TAKE 1 TABLET BY MOUTH DAILY IN THE MORNING 07/28 completed Not Available Not Available Not Available metformin ER 500 mg 24 hr tablet,exte nded release (gastric retention) one tablet twice daily before meals 10/21 completed Not Available Not Available Not Available Wal-Zyr D 5 mg-120 mg tablet,exte nded release TK 1 T PO BID 09/01 completed Not Available Not Available Not Available Onglyza 5 mg tablet 01/24 completed Not Available Not Available Not Available Brilinta 90 mg tablet TK 1 T PO BID active Not Available Not Available No t Available Farxiga 10 mg tablet active Not Available Not Available No t Available Jardiance 25 mg tablet TAKE 1 TABLET BY MOUTH DAILY IN THE MORNING 08/24 completed Not Available Not Available Not Available Trulicity 1.5 mg/0.5 mL subcutaneou s pen injector ADM 0.5 ML SC Q WK WC active Not Available Not Available No t Available Repatha SureClick 140 mg/mL subcutaneou s pen injector active Not Available Not Available Not Available Accu-Chek Guide test strips USE TO CHECK BLOOD SUGAR DAILY WHILE FASTING active Not Available Not Available No t Available Accu-Chek Guide Glucose Meter USE TO CHECK BLOOD SUGAR DAILY WHILE FASTING active Not Available Not Available No t Available Bydureon BCise 2 mg/0.85 mL subcutaneou s auto-inject or Inject 2 mg every week by subcutane ous route in the morning for 30 days. 09/01 completed Not Available Not Available Not Available Accu-Chek Fastclix Lancet Drum USE TO CHECK BLOOD SUGAR DAILY WHILE FASTING active Not Available Not Available No t Available FreeStyle Genia 2 Sensor kit USE AND CHANGE EVERY 14 DAYS active Not Available Not Available No t Available Fluzone High-Dose Quad (PF) 240 mcg/0.7 mL IM syringe ADM 0.7ML IM UTD 12/24 completed Not Available Not Available Not Available Vitals Date Recorded Body mass index (BMI) Body height Oxygen saturation Oxygen saturation in Arterial blood by Pulse oximetry Heart rate Body temperature Body weight Systolic blood pressure Diastolic blood pressure Provider Name and Address Organization Details Last Updated DateTime 2 30.4 kg/m2 160.02 cm 95 % 95 % 78 /min 97.7 [degF] 18858.4 5 g 110 mm[Hg] 78 mm[Hg] Not Available [employer] 3 02:30:56 Date Recorded Body mass index (BMI) Body height Oxygen saturation Oxygen saturation in Arterial blood by Pulse oximetry Heart rate Body temperature Body weight Systolic blood pressure Diastolic blood pressure Provider Name and Address Organization Details Last Updated DateTime 3 30.3 kg/m2 160.02 cm 97 % 97 % 76 /min 97.6 [degF] 79510.5 8 g 122 mm[Hg] 70 mm[Hg] Not Available [facility] 3 02:30:56 Date Recorded Body height Provider Name an d Address Organization Details Last Updated DateTime 03/02/2022 160.02 cm Not Available [facility] 3 02:30:57 Date Recorded Body height Body mass index (BMI) Body weight Heart rate Body temperature Systolic blood pressure Diastolic blood pressure Provider Name and Address Organization Details Last Updated DateTime 3 160.02 cm 28.5 kg/m2 40404.6 5 g 68 /min 98.6 [degF] 134 mm[Hg] 74 mm[Hg] Charley Manrique MA [place] [facility] [employer] 3 11:42:23 Social History Question Answer Notes LastModified by Organizat ion Details LastModified Time Tobacco Smoking Status Never Smoker Not Available [facility] 01/05/2023 02:24:38 What Is Your Level Of Alcohol Consumption? None [id number] Information not available 01/05/2023 Are You Blind Or Do You Have Difficulty Seeing? No [id number] Information not available 01/05/2023 What Is Your Level Of Caffeine Consumption? None [id number].[id number] Information not available 01/05/2023 How Much Tobacco Do You Chew? None [id number] Information not available 01/05/2023 In The 14 Days Before Symptom Onset, Have You Had Close Contact With A Laboratory-confir med COVID-19 While That Case Was Ill? No [id number] Information not available 01/05/2023 In The 14 Days Before Symptom Onset, Have You Had Close Contact With A Person Who Is Under Investigation For COVID-19 While That Person Was Ill? No [id number] Information not available 01/05/2023 Are You Deaf Or Do You Have Serious Difficulty Hearing? No MIGRATION.[id number] Information not available 01/05/2023 What Type Of Diet Are You Following? REGULAR [id number].[id number] Information not available 01/05/2023 Which Illicit Or Recreational Drugs Have You Used? None [id number].[id number] Information not available 01/05/2023 Do You Or Have You Ever Used E-cigarettes Or Vape? Never Used Electronic Cigarettes MIGRATION.[id number] Information not available 01/05/2023 What Is Your Occupation? Retired MIGRATION.[id number] Information not available 01/05/2023 What Is Your Relationship Status? [id number].[id number] Information not available 01/05/2023 Do You Or Have You Ever Used Smokeless Tobacco? Never Used Smokeless Tobacco MIGRATION.[id number] Information not available 01/05/2023 How Much Tobacco Do You Smoke? No MIGRATION.[id number] 0817 Information not available 01/05/2023 Do You Use Any Illicit Or Recreational Drugs? No MIGRATION.[id number] 2626 Information not available 01/05/2023 Have You Recently Traveled Abroad? No MIGRATION.[id number] 9155 Information not available 01/05/2023 Do You Have Any Dietary Restrictions? No MIGRATION.[id number] 1934 Information not available 01/05/2023 Sex: Female Functional Status Question Answer Note LastModified by Organizat ion Details LastModified Time Do you have difficulty walking or climbing stairs? No MIGRATION.[id number] 026 Information not available 01/05/2023 Do you have transportation difficulties? No MIGRATION.[id number] 026 Information not available 01/05/2023 Are you able to walk? [place]OREST MIGRATION.[id number] 026 Information not available 01/05/2023 Do you have difficulty doing errands alone? No MIGRATION.[id number] 026 Information not available 01/05/2023 Are you able to care for yourself? No MIGRATION.[id number] 026 Information not available 01/05/2023 Do you have difficulty dressing or bathing? No MIGRATION.[id number] 026 Information not available 01/05/2023 Mental Status Question Answer Note LastModified by Organizat ion Details LastModified Time Do you have difficulty concentrating, remembering or making decisions? No [id number] Information not available 01/05/2023 Family History Relationship Description Onset Age of this Age Resolved Age Notes LastModified by Organization Details LastModified Time Mother Dementia [id number] Not available 01/05/2023 02:30:43 Maternal Grandmother Malignant tumor of breast [id number].[id number] Not available 01/05/2023 02:30:43 Medical History Condition Response DIABETES, TYPE Y HEART DISEASE/HEART PROBLEMS HIGH CHOLESTEROL / HYPERLIPIDEMIA Y Gynecological HistoryNo gynecological history recorded. Obstetrics History GPAL:G 0 P 0 0 0 0 Past Encounters Encounter ID Performer Location Encounter Start Date Encounter Closed Date Diagnosis/Indication Diagnosis SNOMED-CT Code Diagnosis ICD10 Code Diagnosis Note [id number] _ATHENA_M IGRATION_ DEFAULT_1 _1 , 01/22/2021 00:00:00 01/22/2021 11:28:58 [id number] [facility] [address] [place] [address] 09/01/2021 00:00:00 09/01/2021 15:27:38 [id number] [facility] [place] [address] [place] [address] 12/01/2021 00:00:00 12/01/2021 13:32:54 [id number] [facility] [place] [address] [place] [address] 03/02/2022 00:00:00 03/02/2022 13:15:56 [id number] [facility] [place] [facility] [address] [place] [address] 08/24/2022 00:00:00 08/25/2022 12:09:21 [id number] [facility] [place] [facility] [address] [place] [address] 12/24/2022 00:00:00 12/24/2022 15:00:28 [id number] Li Lee MD [facility] [address] [place] [address] 07/28/2023 11:29:00 07/28/2023 12:19:07 Uncontrolled type 2 diabetes mellitus 983464727 E11.65 a1c 8% from May- continue current regimen as she is compliant with her [employer] genia 2 sensor - she is doing well on current regimen and not having any hypoglycem ia. She is off trulicity or any GLP1 agonist therapy due to significan t GI upset/conc martinez for pancreatit is. Continue metformin for insulin sensitizat ion, glimepirid e scale with meals and farxiga. refer to endocrinol ogy per patient request. Mixed hyperlipidemia 267 114672 E78.2 Continue statin and repatha as LDL in ideal range. Spent up to 25 minutes preparing to see the patient (eg, review of tests), obtaining and/or reviewing separately obtained history, performing a medically appropriat e examinatio n and evaluation , counseling and educating the patient, ordering medication s, tests, along with documentin g clinical informatio n in the electronic health record, independen tly interpreti ng results and communicat ing results to the patient. Patient can be followed by PCP - she/he is aware of my resignatio n and last day of August 19. If needed his/her PCP can refer patient to another endocrinol ogist in the area. All questions /concerns answered and refills necessary at visit today. Health Concerns Section Related Observation LastModified by Organization Detai ls LastModified Time None Recorded Concern Status LastModified by Organization Details LastModified Time None Recorded Advance Directives Directive None Recorded Payers Encounter Date Sequence Insurance Name Policy Number Policy Swain Covered Member ID Swain Member ID Guarantor Name 07/28/2023 1 [place] My [employer] [id number] My [employer] 07/28/2023 2 [facility] (MEDICARE SUPPLEMENT) My Galan [id number] My [employer] Notes Date Note Type Note Provider Name and Address Organization Details Recorded Time 07/28/2023 text/html 67 yo female com es in for follow up in management of type 2 DM (A1C of 8% from May), dyslipidemia. last seen in Dec at that time we restarted low dose metformin ER 500 mg daily with dinner and continued on farxiga 10 mg daily and glimepiride scale. she had significant GI upset on trulicity. She was in hospital after accidental poisoning from wellbutrin last week and follows up with psychiatrist tomorrow. She is tolerating the metformin and farxiga She uses [employer] genia 2 sensor and this has helped regulate her overall control. 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 Sugars running 230 mg/dL and under with average of 150 mg/dLDenies any hypoglycemia labs from 07/13/23:125/92/81/2 7glucose 145 mg/dLCr 1.06 mg/dL with GFR 57 ml/minmicroalbumin high at 109 ug/mgglucose 145 mg/dLvit D 27 ng/mLPTH normal/calcium normal Li Lee MD [address] [facility], [facility] [address], [place], [address], [place] [facility] 07/28/2023 13:13:17 OBGyn Episode No OBEpisode recorded.
--- OUTSIDE RECORDS SUMMARY | 2025-01-10 20:53 | XMS_ITS | Encounter Summary ---
Author Organization [facility] Address [address] [place] [address] Care Team Providers Care [employer] Director Name Role Phone Froilan Anderson MD Primary Care Provider [phone]- [phone] Tano Fregoso MD Primary Care Provider + Encounter Details Date Type Department Care Team (Late st Contact Info) Description 06/03/2023 Lab Requisition [facility] - DermPath Lab [address] [place] [address] Pricila Victor MD [address] [place] [address] [place] [address] Dermatitis, unspecified Social History Tobacco Use Types Packs/Day Years Used Date Smoking Tobacco: Never Smokeless Tobacco: Never Sex and Gender Information Value Date Recorded Sex Assigned at Female 11/24/2021 9:23 PM [employer] Gender Identity Female 11/24/2021 9:23 PM [employer] Sexual Orientation Straight 11/24/2021 9: 23 PM [employer] documented as of this encounter Plan of Treatment Upcoming Encounters Date Type Department Care Team (Late st Contact Info) Description 06/06/2025 11:30 AM CDT Office Visit [facility] [address], [facility] [address] [place] [address] Elysia Gunderson Che, MD [address] [facility] [address] [place] [address] documented as of this encounter Procedures Procedure Name Priority Date/Time Associated Diagnosis Comments DERMATOPATHOLOGY Routine 06/03/2023 12:0 0 AM CDT Dermatitis, unspecified documented in this encounter Results * DERMATOPATHOLOGY (06/03/2023 12:00 AM CDT) Case Report Dermatopathology Report Case: [id number] Authorizing Provider: Pricila Victor MD Collected: 06/03/2023 12:00 AM Ordering Location: [facility] DermPath Lab Received: 06/06/2023 12:58 PM Pathologist: [...] characteristic determined by the Dermatopathology Laboratory at [facility], directed by Dr. Luis E Negron. These tests need not be, and therefore are not, approved by the [place] Food and Drug Administration. The tests are used for clinical purposes. Billing Codes Specimen Charges Stain Charges 37809 1 3 1:12 PM CDT DERMATOPATHOLOGY LABORATORY Embedded Images 3 1:12 PM CDT DERMATOPATHOLOGY LABORATORY Pathology/Cytolog y TISSUE SPECIMEN FROM SKIN / Unknown 06/03/2023 06/06/2023 12:58 PM CDT Pricila Victor MD LAB - PATHOLOGY/CYTO LOGY ORDERABLES DERMATOPATHOLOGY LABORATORY [facility] - Department of Dermatology [address] [phone] documented in this encounter Visit Diagnoses Diagnosis Dermatitis, unspecified documented in this encounter Care Teams Middle [employer] Director Relationship Specialty Start Date End Date Froilan Anderson MD [address] [place] [address] [address] [place] [id number] PCP - General 08/27/14 12/06/23 Tano Fregoso MD [address] [place] [id number] PCP - General Family Medicine 12/07/23 documented as of this encounter
--- OUTSIDE RECORDS SUMMARY | 2025-01-10 20:53 | XMS_ITS | Referral Summary ---
Author Organization [facility] Address [address] [place] [phone] Care Team Providers Care Industrial Economics Teacher Name Role Phone Tano Fregoso MD Primary Care Provider + Encounters Date Type Department Care Team Description 01/10/2025 Telephone [facility] Medical [facility] Cardiology [address] [place] [phone] Patricia Peters MD 01/08/2025 Telephone [facility] Sleep Lab [address] [place] [address] Hong Beck [facility] 01/08/2025 1:00 PM COST MANAGER Office Visit [facility] Cardiology [address] [facility] [address] [place] [phone] Ewa Cook NP Coronary artery disease involving prairie band coronary artery of prairie band heart without angina pectoris (Primary Dx); Hyperlipidemia associated with type 2 diabetes mellitus (HCC); Lipid screening 01/03/2025 7:57 PM COST MANAGER - 01/03/2025 11:59 PM COST MANAGER Hospital Encounter [facility] Sleep Lab [address] [place] [address] TRACY (obstructive sleep apnea) Discharge Disposition: Discharge to home or self care 12/21/2024 Telephone [facility] Obstetrical Gynecology [address] [facility] [address] [place] [phone] Annette Crawley LPN 12/20/2024 9:13 AM COST MANAGER - 12/20/2024 11:59 PM COST MANAGER Hospital Encounter [facility] Imaging and Radiology [address] [place] [address] Heterogeneously dense tissue of both breasts on mammography; Family history of breast cancer; Other signs and symptoms in breast Discharge Disposition: Discharge to home or self care 12/18/2024 10:45 AM COST MANAGER Office Visit [facility] Primary Care [address] [place] [address] [address] [place] [address] Tano Fregoso MD Type 2 diabetes mellitus with hyperglycemia, without long-term current use of insulin (HCC) (Primary Dx); Hypertension associated with diabetes (HCC); Mixed hyperlipidemia; 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; Gastroesophageal reflux disease without esophagitis; CUCO (generalized anxiety disorder); Moderate episode of recurrent major depressive disorder (HCC) 11/14/2024 Telephone [facility] Primary Care [address] [place] [address] [address] [place] [address] Tano Fregoso MD Med Refill 11/09/2024 Telephone [facility] Care [address] [place] [address] [address] [place] [address] Tano Fregoso MD Medical Question/Miscellaneous 11/09/2024 Telephone [facility] Sleep Lab [address] [place] [address] Brannon Mccloud MD sleep study results 11/08/2024 Orders Only [facility] Pulmonology [address] [facility] [address] [place] [address] Brannon Mccloud MD TRACY (obstructive sleep apnea) (Primary Dx) 11/04/2024 8:00 PM COST MANAGER - 11/04/2024 11:59 PM COST MANAGER Hospital Encounter [facility] Sleep Lab [address] [place] [address] SOB (shortness of breath); TRACY (obstructive sleep apnea); Psychophysiological insomnia; Delayed sleep phase syndrome; Nonsmoker; Non-seasonal allergic rhinitis due to pollen Discharge Disposition: Discharge to home or self care 10/26/2024 Nurse Triage [facility] Primary Care [address] [place] [phone] Jody Callaway Leila Tremor (Primary Dx) 10/26/2024 10:00 AM COST MANAGER [facility] at [address] [phone] Gely Witt NP Fall, initial encounter (Primary Dx); Acute ear pain, right 10/25/2024 Telephone [facility] Care [address] [place] [phone] Tano Fregoso MD 10/25/2024 Nurse Triage [facility] Care [address] [place] [phone] Tano Fregoso MD 10/15/2024 Telephone [facility] Care [address] [place] [phone] Tano Fregoso MD Medical Question/Miscellaneous from [...] hyperglycemia, without long-term current use of insulin ([facility]) Inject 0.5 mg under the skin once a week 3 mL 12/18/19 25 025 Active Farxiga 10 mg tabletIndicati ons:Type 2 diabetes mellitus with hyperglycemia, without long-term current use of insulin ([facility]),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 Take 1 [...] medication Assessment & Plan (12/08/2022 4:04 PM COST MANAGER): - stable - continue current medication Assessment [...] mo Assessment & Plan (09/13/2023 3:16 PM COST MANAGER): - stable - continue current medications - [...] labs Assessment & Plan (12/08/2022 4:03 PM COST MANAGER): - stable - continue current medication per [...] metoprolol Assessment & Plan (09/13/2023 3:16 PM COST MANAGER): - stable - continue current medication Assessment [...] medication Assessment & Plan (12/17/2022 3:19 PM COST MANAGER): - stable - continue current medication Assessment & Plan (12/08/2022 4:03 PM COST MANAGER): - stable - continue current medication Assessment & Plan (02/09/2022 11:59 AM CDT): - stable - continue current medication Assessment & Plan (11/25/2021 12:25 PM COST MANAGER): - stable - continue current medication Assessment [...] repatha Assessment & Plan (09/13/2023 3:17 PM COST MANAGER): - stable - restart statin Assessment & [...] medication Assessment & Plan (12/08/2022 4:03 PM COST MANAGER): - stable - continue current medication Assessment & Plan (08/13/2021 12:15 PM CDT): - stable - continue current medication Assessment & Plan (04/13/2021 2:36 PM CDT): - stable - continue current medication Coronary artery disease of n ative artery of prairie band heart with stable angina pectoris 04/13/2021 Assessment & Plan (07/25/2024 2:16 PM CDT): - stable - continue asa, repatha Assessment & Plan (04/24/2024 4:27 PM CDT): - stable - continue asa, repatha Assessment & Plan (09/13/2023 3:16 PM COST MANAGER): - stable - continue current medication Assessment & Plan (06/07/2023 3:17 PM CDT): - stable - continue current medication Assessment & Plan (12/08/2022 4:03 PM COST MANAGER): - stable - continue current medication Assessment & Plan (02/09/2022 11:59 AM CDT): - stable - continue current medication Assessment & Plan (11/25/2021 12:26 PM COST MANAGER): - stable - continue current medication Assessment [...] medication Assessment & Plan (12/08/2022 4:04 PM COST MANAGER): - stable - continue current medication Assessment & Plan (02/09/2022 12:00 PM CDT): - stable - continue current medication Assessment & Plan (11/25/2021 12:25 PM COST MANAGER): - stable - continue current medication Assessment [...] 04/13/2021 Assessment & Plan (09/13/2023 3:19 PM COST MANAGER): - unclear etiology but given associated diarrhea will trial tx for IBS - start amitriptyline 25mg qhs - f/u with GI as planned. - if sx continue consider RUQ US Assessment & Plan (04/20/2021 9:21 AM CDT): - continue flagyl and cipro - continue zofran prn - will obtain records from [facility] to review imaging and labs [...] loss Assessment & Plan (12/08/2022 4:05 PM COST MANAGER): - Reviewed with the patient BMI, blood [...] 06/07/2023 Assessment & Plan (12/08/2022 4:04 PM COST MANAGER): - augmentin - flonase - f/u prn [...] 12/17/2022 Assessment & Plan (11/25/2021 12:27 PM COST MANAGER): - suspect bruising vs. OA - check xray to ensure no fx. Rib pain 11/25/2021 12/17/2022 Assessment & Plan (11/25/2021 12:26 PM COST MANAGER): - no palpable abnormality - pt reassured [...] Immunization Administration Dates Next Due COVID-19 mRNA (Pocket Video) 0.3 m L (30 mcg) vaccine (12 [...] on file Legal Sex Female 4:16 AM COST MANAGER Gender Identity Not on file Sexual Orientation Not on file Last Filed Vital Signs Vital Sign Reading Time Taken Comments Blood Pressure 108/70 01/08/2025 1:07 PM COST MANAGER Pulse 86 01/08/2025 1:07 PM COST MANAGER Temperature 36.2 C (97.1 F) 12/18/2024 10:52 AM COST MANAGER Respiratory Rate 16 12/18/2024 10:52 AM COST MANAGER Oxygen Saturation 95% 01/08/2025 1:07 PM COST MANAGER Inhaled Oxygen Concentration - - Weight 71.2 kg (157 lb) 01/08/2025 1:07 PM COST MANAGER Height 160 cm (5' 3 ) 01/08/2025 1:07 PM COST MANAGER Body Mass Index 27.81 01/08/2025 1:07 PM COST MANAGER Plan of Treatment Not on file Medical Devices Implanted Type Area Oracle Hyperion Consultant Device Identifier Shelf Expiration Date Model / Serial / Lot Stent- 0 Implanted:Qty: 1 on 09/14/2020 Stent Coronary [employer] Synergy / / [id number] Sulfagenix [facility] Device Closure Vascade Od5 Fr Femoral Artery [id number] - [id number] Implanted:Qty: 1 on 04/10/2024 by Patricia Peters MD at [facility] [id number] / / Procedures Procedure Name Priority Date/Time Associated Diagnosis Comments POCT LIPID PANEL Routine 01/08/2025 1:46 PM COST MANAGER Lipid screening PSG (SIMPLE) Routine 01/03/2025 7:57 PM COST MANAGER TRACY (obstructive sleep apnea) MRI BREAST BILATERAL W WO CONTRAST Schedule Routine, Read Routine (OP Routine) 12/20/2024 10:41 AM COST MANAGER Heterogeneously dense tissue of both breasts on mammography Family history of breast cancer Other signs and symptoms in breast POCT HEMOGLOBIN A1C Routine 12/18/2024 11:13 AM COST MANAGER Type 2 diabetes mellitus with hyperglycemia, without long-term current use of insulin (HCC) THYROID FUNCTION CASCADE Routine 11/10/2024 12:00 PM COST MANAGER Tremor ERYTHROCYTE SEDIMENTATION RATE Routine 11/10/2024 12:00 PM COST MANAGER Tremor CRP (ACUTE PHASE) Routine 11/10/2024 12:00 PM COST MANAGER Tremor CBC WITH AUTO DIFFERENTIAL Routine 11/10/2024 12:00 PM COST MANAGER Tremor COMPREHENSIVE METABOLIC PANEL Routine 11/10/2024 12:00 PM COST MANAGER Tremor PSG (SIMPLE) Routine 11/04/2024 8:03 PM COST MANAGER SOB (shortness of breath) TRACY (obstructive sleep [...] * POCT lipid panel (01/08/2025 1:46 PM COST MANAGER) Cholesterol, POC 256 mg/dL HDL, POC 56 mg/dL Triglycerides, POC 325 mg/dL LDL Cholesterol POC 134 mg/dL Chol/HDL Ratio, POC 2.4 Non-HDL Cholesterol, POC 199 mg/dL Cholesterol Total, POC 256 mg/dL Capillary blood 01/08/2025 1 :46 PM COST MANAGER Ewa Cook NP POINT OF CARE TEST ORDERA BLES Final Result * PSG (01/03/2025 7:57 PM COST MANAGER) Brannon Mccloud MD SLEEP CENTER ORDERABLES Fin al Result Performing Organization Address City/State/[facility] Co de Phone Number [facility]EP [facility]ICINE [address] [place] [address] * MRI Breast Bilateral W WO Contrast (12/20/2024 10:41 AM COST MANAGER) Anatomical Region Laterality Modality Breast Bilateral Magnetic Resonan ce 12/20/2024 12:2 9 PM COST MANAGER Impressions 12/20/2024 12:29 PM COST MANAGER No suspicious abnormality in EITHER breast. OVERALL FINAL ASSESSMENT: BI-RADS Category 1: Negative. RECOMMENDATION: Annual screening mammography, with screening breast MRI if clinically indicated, are recommended. Electronically signed by: Patria Steward M.D. Narrative 12/20/2024 12:29 PM COST MANAGER EXAMINATION: 1. MRI EXAMINATION OF THE BREASTS [...] (ABNORMAL) POCT hemoglobin A1c (12/18/2024 11:13 AM COST MANAGER) [facility] Hemoglobin A1C, POC 7.3 4.0 - 5.6 % Blood 12/18/2024 11:1 3 AM COST MANAGER Tano Fregoso MD POINT OF CARE TEST ORDER MORRIS Final Result * Thyroid Function Cobb (11/10/2024 12:00 PM COST MANAGER) [facility] TSH 1.710 0.450 - 4.500 uIU/mL [facility] - 01 Comment: No apparent thyroid disorder. Additional testing not indicated. In rare instances, Secondary Hypothyroidism as well as Subclinical Hypothyroidism have been reported in some patients with normal TSH values. Blood 11/10/2024 12:0 0 PM COST MANAGER 11/10/2024 Narrative [facility] - 11/11/2024 8:07 AM COST MANAGER Performed at: [facility] [address] [id number] Wolf Hunter: Ernie Crowley PhD, Phone: [phone] Tano Fregoso MD LAB BLOOD ORDERABLES Fin al Result [facility] - 01 * (ABNORMAL) CBC with auto differential (11/10/2024 12:00 PM COST MANAGER) [facility] WBC 6.6 3.4 - 10.8 x10E3/uL [facility] [...] - 01 Blood 11/10/2024 12:0 0 PM COST MANAGER 11/10/2024 Narrative [facility] - 11/11/2024 7:06 AM COST MANAGER Performed at: - [facility] [address] [id number] Wolf Hunter: Ernie Crowley PhD, Phone: [phone] us Tano Fregoso MD LAB BLOOD ORDERABLES Fin al Result [facility] - 01 * Erythrocyte sedimentation rate (11/10/2024 12:00 PM COST MANAGER) Pathologist [facility] Erythrocyte sedimentation rate 9 0 - 40 mm/hr [facility] - 01 Blood 11/10/2024 12:0 0 PM COST MANAGER 11/10/2024 Narrative [facility] - 11/11/2024 8:07 AM COST MANAGER Performed at: [address] [place] [id number] Wolf Hunter: Ernie Crowley PhD, Phone: [phone] Tano Fregoso MD LAB BLOOD ORDERABLES Fin al Result Performing Organization Address [facility] de Phone Number [facility] - 01 * CRP (acute phase) (11/10/2024 12:00 PM COST MANAGER) [facility] CRP 2 0 - 10 mg/L [facility] - 01 Blood 11/10/2024 12:0 0 PM COST MANAGER 11/10/2024 Narrative [facility] - 11/11/2024 8:07 AM COST MANAGER Performed at: [address] [place] [id number] Wolf Hunter: Ernie Crowley PhD, Phone: [phone] Tano Fregoso MD LAB BLOOD ORDERABLES Fin al Result Performing Organization Address [facility] de Phone Number [facility] - 01 * (ABNORMAL) Comprehensive metabolic panel (11/10/2024 12:00 PM COST MANAGER) [facility] Glucose 175(H) 70 - 99 mg/dL [facility] [...] - 01 Blood 11/10/2024 12:0 0 PM COST MANAGER 11/10/2024 Narrative [facility] - 11/11/2024 8:07 AM COST MANAGER Performed at: - [address] [id number] Wolf Hunter: Ernie Crowley PhD, Phone: [phone] Tano Fregoso MD LAB BLOOD ORDERABLES Fin al Result [facility] - 01 * PSG (11/04/2024 8:03 PM COST MANAGER) Brannon Mccloud MD SLEEP CENTER ORDERABLES Fin al Result [facility] SLEEP MEDICINE [address] [place] [address] * Diabetic Eye Exam (09/18/2024) 09/18/2024 Historical Provider HEALTH MAINTENANCE Edited Result - Final * Albumin Creatinine Ratio, Urine (07/25/2024 2:28 PM CDT) Albumin Ur <12.0 mg/L Comment: Interpretive Data No reference range established. Current interpretive data was last revised 2019. Testing performed by: [address] [address] Creatinine Ur 63.9 mg/dL [facility] Comment: Interpretive Data No reference range established. Current interpretive data was last revised 2019. Testing performed by: [address] [address] Albumin Creatinine Ratio, Ur <19 1 - 29 mg/g [facility] Comment:Testing performed by : [address] [address] Urine 07/25/2024 2:28 PM CDT 07/25/2024 8:07 PM CDT us Tano Fregoso MD LAB URINE ORDERABLES Fin al Result [facility] Department [place] [address] * Diagnostic Mammogram Bilateral W Ren (05/16/2024 1:13 PM CDT) Anatomical Region Laterality Modality Breast Bilateral Mammography 05/16/2024 1:28 PM CDT Narrative 05/16/2024 1:31 PM CDT EXAM DESCRIPTION: US BREAST RIGHT LIMITED; DIAGNOSTIC MAMMOGRAM BILATERAL W RNE REASON FOR STUDY: 68-year-old woman comes in [...] Constantino Norton M.D. RL: MAT Report ID: [id number] Reading Location: [facility] Viktoriya Segovia MD IMG MAMMO PROCEDURES Final [...] given history of: screening for osteoporosis Postmenopausal Oracle Hyperion Consultant/Model: [employer] A (S/N [id number]) CLINICAL INFORMATION: Current height: 61.5 inches Maximum [...] Kashmir Nick M.D. MF: MAHIN Report ID: [id number] Reading Location: [id number] Procedure Note Kashmir Nick MD - 04/20/2024 EXAM DESCRIPTION: DEXA AXIAL SKELETON BONE DENSITY 1 OR MORE SITES REASON FOR STUDY: 68 y/o year old F with given history of: screeningfor osteoporosis Postmenopausal [employer]ion Consultant/Model: [employer] A (S/N [id number]) CLINICAL INFORMATION: Current height: 61.5 inches Maximum [...] Kashmir Nick M.D. MF: MAHIN Report ID: [id number] Reading Location: [id number] Viktoriya Segovia MD IMG DXA PROCEDURES Final [...] - GENER AL ORDERABLES Final Result [facility] [address] [facility] Department [place] [address] from Last 3 Months or Most Recently Relevant to Health Maintenance Insurance MEDICARE [facility] Member Subscriber Plan / Payer ( fective 2020-Present) Name:My Galan Relation to Subscriber:Self Name:My Galan Payer ID:[id number] Group ID:Not on file Type:COMMERCIAL Address: [place] [id number] MEDICARE [facility] Advance Directives For more information, please contact: [phone] * Full Code (Latest Code Status on File) Date Activated Date Inactivated Comments 04/10/2024 10:21 AM 04/10/2024 7:32 PM * Full Code Date Activated Date Inactivated Comments 12/26/2023 8:50 AM 12/26/2023 2:37 PM * Full Code Date Activated Date Inactivated Comments 12/26/2023 8:50 AM 12/26/2023 8:50 AM Care Teams Industrial Economics Teacher Relationship Specialty Start Date End Date Tano Fregoso MD [address] [id number] PCP - General Family Medicine 04/13/21
--- OUTSIDE RECORDS SUMMARY | 2025-01-10 20:53 | XMS_ITS | Clinical Summary ---
Author Organization [facility] at the Medical Office Building Address [address] [place] [phone] Care Team Providers Care Edger Operator Name Role Phone Tano Fregoso MD [...] long-term current use of insulin ([facility]) Inject 0.5 mg under the skin once a week 3 mL 12/18/19 25 025 Active Farxiga 10 mg tabletIndicati ons:Type 2 diabetes mellitus with hyperglycemia, without long-term current use of insulin ([facility]),Coronary artery disease of [place] artery of [place] heart with stable angina pectoris Take 1 [...] medication Assessment & Plan (12/08/2022 4:04 PM ORIENTOR): - stable - continue current medication Assessment [...] mo Assessment & Plan (09/13/2023 3:16 PM ORIENTOR): - stable - continue current medications - [...] labs Assessment & Plan (12/08/2022 4:03 PM ORIENTOR): - stable - continue current medication per [...] metoprolol Assessment & Plan (09/13/2023 3:16 PM ORIENTOR): - stable - continue current medication Assessment [...] medication Assessment & Plan (12/17/2022 3:19 PM ORIENTOR): - stable - continue current medication Assessment & Plan (12/08/2022 4:03 PM ORIENTOR): - stable - continue current medication Assessment & Plan (02/09/2022 11:59 AM CDT): - stable - continue current medication Assessment & Plan (11/25/2021 12:25 PM ORIENTOR): - stable - continue current medication Assessment [...] repatha Assessment & Plan (09/13/2023 3:17 PM ORIENTOR): - stable - restart statin Assessment & [...] medication Assessment & Plan (12/08/2022 4:03 PM ORIENTOR): - stable - continue current medication Assessment & Plan (08/13/2021 12:15 PM CDT): - stable - continue current medication Assessment & Plan (04/13/2021 2:36 PM CDT): - stable - continue current medication Coronary artery disease of n ative artery of [place] heart with stable angina pectoris 04/13/2021 Assessment & Plan (07/25/2024 2:16 PM CDT): - stable - continue asa, repatha Assessment & Plan (04/24/2024 4:27 PM CDT): - stable - continue asa, repatha Assessment & Plan (09/13/2023 3:16 PM ORIENTOR): - stable - continue current medication Assessment & Plan (06/07/2023 3:17 PM CDT): - stable - continue current medication Assessment & Plan (12/08/2022 4:03 PM ORIENTOR): - stable - continue current medication Assessment & Plan (02/09/2022 11:59 AM CDT): - stable - continue current medication Assessment & Plan (11/25/2021 12:26 PM ORIENTOR): - stable - continue current medication Assessment [...] medication Assessment & Plan (12/08/2022 4:04 PM ORIENTOR): - stable - continue current medication Assessment & Plan (02/09/2022 12:00 PM CDT): - stable - continue current medication Assessment & Plan (11/25/2021 12:25 PM ORIENTOR): - stable - continue current medication Assessment [...] 04/13/2021 Assessment & Plan (09/13/2023 3:19 PM ORIENTOR): - unclear etiology but given associated diarrhea will trial tx for IBS - start amitriptyline 25mg qhs - f/u with GI as planned. - if sx continue consider RUQ US Assessment & Plan (04/20/2021 9:21 AM CDT): - continue flagyl and cipro - continue zofran prn - will obtain records from [facility] to review imaging and labs [...] loss Assessment & Plan (12/08/2022 4:05 PM ORIENTOR): - Reviewed with the patient BMI, blood [...] 06/07/2023 Assessment & Plan (12/08/2022 4:04 PM ORIENTOR): - augmentin - flonase - f/u prn [...] 12/17/2022 Assessment & Plan (11/25/2021 12:27 PM ORIENTOR): - suspect bruising vs. OA - check xray to ensure no fx. Rib pain 11/25/2021 12/17/2022 Assessment & Plan (11/25/2021 12:26 PM ORIENTOR): - no palpable abnormality - pt reassured [...] Type Department Care Team Description 01/10/2025 Telephone [facility] Cardiology [address] [facility] [address] [place] [phone] Patricia Peters MD 01/08/2025 1:00 PM ORIENTOR Office Visit [facility] Cardiology [address] [facility] [address] [place] [phone] Ewa Cook NP Coronary artery disease involving [place] coronary artery of [place] heart without angina pectoris (Primary Dx); Hyperlipidemia associated with type 2 diabetes mellitus (HCC); Lipid screening 01/08/2025 Telephone [facility] [address] [place] [address] Hong Beck, [facility] 01/03/2025 7:57 PM ORIENTOR - 01/03/2025 11:59 PM ORIENTOR Hospital Encounter [facility] [address] [place] [address] TRACY (obstructive sleep apnea) Discharge Disposition: Discharge to home or self care 12/21/2024 Telephone [facility] Obstetrical Gynecology [facility] [facility] [address] [place] [phone] Annette Crawley LPN 12/20/2024 9:13 AM ORIENTOR - 12/20/2024 11:59 PM ORIENTOR Hospital Encounter [facility] Imaging and Radiology [address] [place] [phone] Heterogeneously dense tissue of both breasts on mammography; Family history of breast cancer; Other signs and symptoms in breast Discharge Disposition: Discharge to home or self care 12/18/2024 10:45 AM ORIENTOR Office Visit [facility] Primary Care [address] [facility] [address] [place] [address] Tano Fregoso MD Type 2 diabetes mellitus with hyperglycemia, without long-term current use of insulin (HCC) (Primary Dx); Hypertension associated with diabetes (HCC); Mixed hyperlipidemia; Coronary artery disease of [place] artery of [place] heart with stable angina pectoris; Gastroesophageal reflux disease without esophagitis; CUCO (generalized anxiety disorder); Moderate episode of recurrent major depressive disorder (HCC) 11/14/2024 Telephone [facility] Primary Care [address] [place] [address] [place] [phone] Tano Fregoso MD Med Refill 11/09/2024 Telephone [facility] Primary Care [address] [place] [address] [place] [phone] Tano Fregoso MD Medical Question/Miscellaneous 11/09/2024 Telephone [facility] [address] [place], [place] [phone] Brannon Mccloud MD sleep study results 11/08/2024 Orders Only [facility] Pulmonology [address] [facility] [address] [place] [phone] Brannon Mccloud MD TRACY (obstructive sleep apnea) (Primary Dx) 11/04/2024 8:00 PM ORIENTOR - 11/04/2024 11:59 PM ORIENTOR Hospital Encounter [facility] [address] [place] [address] SOB (shortness of breath); TRACY (obstructive sleep apnea); Psychophysiological insomnia; Delayed sleep phase syndrome; Nonsmoker; Non-seasonal allergic rhinitis due to pollen Discharge Disposition: Discharge to home or self care 10/26/2024 10:00 AM ORIENTOR Office Visit [facility] at [address] [phone] Gely Witt NP Fall, initial encounter (Primary Dx); Acute ear pain, right 10/26/2024 Nurse Triage [facility] Primary Care [address] [place] [phone] Jody Callawayerine Tremor (Primary Dx) 10/25/2024 Telephone [facility] Primary Care [address] [place], [place] [address], [place] [phone] Tano Fregoso MD 10/25/2024 Nurse Triage [facility] Primary Care [address] [place] [address] [address] [place] [phone] Tano Fregoso MD 10/15/2024 Telephone [facility] Primary Care [address] [place] [address] [address] [place] [phone] Tano Fregoso MD Medical Question/Miscellaneous from Last 3 Months Immunizations Immunization Administration Dates Next Due COVID-19 mRNA ([employer]) 0.3 m L (30 mcg) vaccine (12 [...] on file Legal Sex Female 4:16 AM ORIENTOR Gender Identity Not on file Sexual Orientation [...] Comments Blood Pressure 108/70 01/08/2025 1:07 PM ORIENTOR Pulse 86 01/08/2025 1:07 PM ORIENTOR Temperature 36.2 C (97.1 F) 12/18/2024 10:52 AM ORIENTOR Respiratory Rate 16 12/18/2024 10:52 AM ORIENTOR Oxygen Saturation 95% 01/08/2025 1:07 PM ORIENTOR Inhaled Oxygen Concentration - - Weight 71.2 kg (157 lb) 01/08/2025 1:07 PM ORIENTOR Height 160 cm (5' 3 ) 01/08/2025 1:07 PM ORIENTOR Body Mass Index 27.81 01/08/2025 1:07 PM ORIENTOR Plan of Treatment Health Maintenance Due Date [...] history exists Medical Devices Implanted Type Area Chair Mender Device Identifier Shelf Expiration Date Model / Serial / Lot Stent- 0 Implanted:Qty: 1 on 09/14/2020 Stent Coronary [employer] / / [id number] [employer] Device Closure Vascade Od5 Fr Femoral Artery [id number] - [id number] Implanted:Qty: 1 on 04/10/2024 by Patricia Peters MD at [facility] [id number] / / Procedures Procedure Name Priority Date/Time Associated Diagnosis Comments POCT LIPID PANEL Routine 01/08/2025 1:46 PM ORIENTOR Lipid screening PSG (SIMPLE) Routine 01/03/2025 7:57 PM ORIENTOR TRACY (obstructive sleep apnea) MRI BREAST BILATERAL W WO CONTRAST Schedule Routine, Read Routine (OP Routine) 12/20/2024 10:41 AM ORIENTOR Heterogeneously dense tissue of both breasts on mammography Family history of breast cancer Other signs and symptoms in breast POCT HEMOGLOBIN A1C Routine 12/18/2024 11:13 AM ORIENTOR Type 2 diabetes mellitus with hyperglycemia, without long-term current use of insulin (HCC) THYROID FUNCTION CASCADE Routine 11/10/2024 12:00 PM ORIENTOR Tremor ERYTHROCYTE SEDIMENTATION RATE Routine 11/10/2024 12:00 PM ORIENTOR Tremor CRP (ACUTE PHASE) Routine 11/10/2024 12:00 PM ORIENTOR Tremor CBC WITH AUTO DIFFERENTIAL Routine 11/10/2024 12:00 PM ORIENTOR Tremor COMPREHENSIVE METABOLIC PANEL Routine 11/10/2024 12:00 PM ORIENTOR Tremor PSG (SIMPLE) Routine 11/04/2024 8:03 PM ORIENTOR SOB (shortness of breath) TRCAY (obstructive sleep apnea) Psychophysiological insomnia Delayed sleep [...] * POCT lipid panel (01/08/2025 1:46 PM ORIENTOR) Cholesterol, POC 256 mg/dL HDL, POC 56 mg/dL Triglycerides, POC 325 mg/dL LDL Cholesterol POC 134 mg/dL Chol/HDL Ratio, POC 2.4 Non-HDL Cholesterol, POC 199 mg/dL Cholesterol Total, POC 256 mg/dL Capillary blood 01/08/2025 1 :46 PM ORIENTOR Ewa Cook NP POINT OF CARE TEST ORDERA BLES Final Result * PSG (01/03/2025 7:57 PM ORIENTOR) Brannon Mccloud MD SLEEP CENTER ORDERABLES Fin al Result [facility] [address] [place] [address] * MRI Breast Bilateral W WO Contrast (12/20/2024 10:41 AM ORIENTOR) Anatomical Region Laterality Modality Breast Bilateral Magnetic Resonan ce 12/20/2024 12:2 9 PM ORIENTOR Impressions 12/20/2024 12:29 PM ORIENTOR No suspicious abnormality in EITHER breast. OVERALL FINAL ASSESSMENT: BI-RADS Category 1: Negative. RECOMMENDATION: Annual screening mammography, with screening breast MRI if clinically indicated, are recommended. Electronically signed by: Patria Steward M.D. Narrative 12/20/2024 12:29 PM ORIENTOR EXAMINATION: 1. MRI EXAMINATION OF THE BREASTS [...] (ABNORMAL) POCT hemoglobin A1c (12/18/2024 11:13 AM ORIENTOR) Hemoglobin A1C, POC 7.3 4.0 - 5.6 % Blood 12/18/2024 11:1 3 AM ORIENTOR Tano Fregoso MD POINT OF CARE TEST ORDER MORRIS Final Result * Thyroid Function Graham (11/10/2024 12:00 PM ORIENTOR) Pathologist [facility] TSH 1.710 0.450 - 4.500 uIU/mL [facility] - 01 Comment: No apparent thyroid disorder. Additional testing not indicated. In rare instances, Secondary Hypothyroidism as well as Subclinical Hypothyroidism have been reported in some patients with normal TSH values. Blood 11/10/2024 12:0 0 PM ORIENTOR 11/10/2024 Narrative [facility] - 11/11/2024 8:07 AM ORIENTOR Performed at: 01 - [address] [id number] Laundry Operator Wash Room: Ernie Crowley PhD, Phone: [phone] Tano Fregoso MD LAB BLOOD ORDERABLES Fin al Result [facility] - 01 * (ABNORMAL) CBC with auto differential (11/10/2024 12:00 PM ORIENTOR) Pathologist [facility] WBC 6.6 3.4 - 10.8 x10E3/uL [facility] [...] - 01 Blood 11/10/2024 12:0 0 PM ORIENTOR 11/10/2024 Narrative [facility] - 11/11/2024 7:06 AM ORIENTOR Performed at: [address] [place], [place] [id number] Laundry Operator Wash Room: Ernie Crowley PhD, Phone: [phone] Tano Fregoso MD LAB BLOOD ORDERABLES Fin al Result Performing Organization Address [facility] de Phone Number [facility] - * Erythrocyte sedimentation rate (11/10/2024 12:00 PM ORIENTOR) [facility] Erythrocyte sedimentation rate 9 0 - 40 mm/hr [facility] - 01 Blood 11/10/2024 12:0 0 PM ORIENTOR 11/10/2024 Narrative [facility] - 11/11/2024 8:07 AM ORIENTOR Performed at: [address] [place] [id number] Laundry Operator Wash Room: Ernie Crowley PhD, Phone: [phone] Tano Fregoso MD LAB BLOOD ORDERABLES Fin al Result Performing Organization Address [facility] de Phone Number [facility] - * CRP (acute phase) (11/10/2024 12:00 PM ORIENTOR) CRP 2 0 - 10 mg/L [facility] - 01 Blood 11/10/2024 12:0 0 PM ORIENTOR 11/10/2024 Narrative [facility] - 11/11/2024 8:07 AM ORIENTOR Performed at: [address] [id number] Laundry Operator Wash Room: Ernie Crowley PhD, Phone: [phone] us Tano Fregoso MD LAB BLOOD ORDERABLES Fin al Result [facility] - 01 * (ABNORMAL) Comprehensive metabolic panel (11/10/2024 12:00 PM ORIENTOR) Glucose 175(H) 70 - 99 mg/dL [facility] [...] - 01 Blood 11/10/2024 12:0 0 PM ORIENTOR 11/10/2024 Narrative [facility] - 11/11/2024 8:07 AM ORIENTOR Performed at: - [address] [id number] Laundry Operator Wash Room: Ernie Crowley PhD, Phone: [phone] us Tano Fregoso MD LAB BLOOD ORDERABLES Fin al Result [facility] - 01 * PSG (11/04/2024 8:03 PM ORIENTOR) us Brannon Mccloud MD SLEEP CENTER ORDERABLES Fin al Result Performing Organization Address City/[facility]/ZIP Co de Phone Number [facility] SLEEP [facility]IC[facility] [address] [place] [address] * Diabetic Eye Exam (09/18/2024) 09/18/2024 us Historical Provider HEALTH MAINTENANCE Edited Result - Final * Albumin Creatinine Ratio, Urine (07/25/2024 2:28 PM CDT) Albumin Ur <12.0 mg/L Comment: Interpretive Data No reference range established. Current interpretive data was last revised 2019. Testing performed by: [address] [address] Creatinine Ur 63.9 mg/dL [facility] Comment: Interpretive Data No reference range established. Current interpretive data was last revised 2019. Testing performed by: [address] [address] Albumin Creatinine Ratio, Ur <19 1 - 29 mg/g [facility] Comment:Testing performed by : [address] [address] Urine 07/25/2024 2:28 PM CDT 07/25/2024 8:07 PM CDT us Tano Fregoso MD LAB URINE ORDERABLES Fin al Result [facility] [address] [facility] [place] [address] * Diagnostic Mammogram Bilateral W Ren (05/16/2024 [...] Constantino Norton M.D. RL: MAT Report ID: [id number] Reading Location: [facility] Viktoriya Segovia MD IMG MAMMO PROCEDURES Final [...] given history of: screening for osteoporosis Postmenopausal Chair Mender/Model: [employer] A (S/N [id number]) CLINICAL INFORMATION: Current height: 61.5 inches Maximum [...] Kashmir Nick M.D. MF: MAHIN Report ID: [id number] Reading Location: [place] [address] Procedure Note Kashmir Nick MD - 04/20/2024 EXAM DESCRIPTION: DEXA AXIAL SKELETON BONE DENSITY 1 OR MORE SITES REASON FOR STUDY: 68 y/o year old F with given history of: screeningfor osteoporosis Postmenopausal Chair Mender/Model: [employer] A (S/N [id number]) CLINICAL INFORMATION: Current height: 61.5 inches Maximum [...] Kashmir Nick M.D. MF: MAHIN Report ID: [id number] Reading Location: [place] [address] Viktoriya Segovia MD IMG DXA PROCEDURES Final [...] - GENER AL ORDERABLES Final Result [facility] [address] [facility] [place] [address] from Last 3 Months or Most Recently Relevant to Health Maintenance Insurance MEDICARE [facility] MEDICARE [facility] Advance Directives For more information, please contact: [phone] * Full Code (Latest Code Status on File) Date Activated Date Inactivated Comments 04/10/2024 10:21 AM 04/10/2024 7:32 PM * Full Code Date Activated Date Inactivated Comments 12/26/2023 8:50 AM 12/26/2023 2:37 PM * Full Code Date Activated Date Inactivated Comments 12/26/2023 8:50 AM 12/26/2023 8:50 AM Care Teams Edger Operator Relationship Specialty [place] [address] [place] [id number] PCP - General Family Medicine 04/13/21
== END 2025-01-10 20:21 | disposition left against medical advice (07) ==
PROVIDERS: PCP Family Medicine
DX: R42 Dizziness and giddiness (principal)
CPT/HCPCS: 99199